=== PATIENT | female | born 1940 | race Caucasian/White ===

== ENCOUNTER → 2017-09-17 06:04 | Outpatient (CLI) | payer MEDICARE, SELFPAY ==
--- NOTE | 2017-09-17 09:25 | STRESSREP ---
Stress Test Report Exercise myocardial perfusion stress test. 77-year-old lady with a history of chest pain. Previous angioplasty and stenting. Stress protocol: Resting EKG demonstrates sinus bradycardia with a rate of 56 bpm normal intervals and noted resting blood pressure is 142/72 meters of mercury. The patient exercised according to regular Zen protocol for total duration of 5 minutes completing 2 minutes into stage II of the Zen protocol. The maximum heart rate attained was 169 bpm which was 119% maximum predicted heart rate the maximum workload attained was 7 metabolic equivalents. The patient maintained sinus rhythm throughout the recording. At rest there were no ST or T-wave changes noted suggest ischemia. At peak exercise there was approximately [address] depression noted in leads II, III and aVF V4 V5 and V6. The above is suggestive of ischemia. Patient complained of some shortness of breath and chest heaviness with dissipated. During recovery the ST changes became more upsloping and finally reverted to normal. The resting blood pressure was 142/72 with a peak blood pressure 162/68. Myocardial perfusion protocol. 11.8 mCi of technetium 99m sestamibi was injected at rest. The patient exercised according to regular Zen protocol for total duration of 5 minutes attaining 7 metabolic equivalents. At peak exercise 34.1 mCi of technetium 99m sestamibi was injected. Stress images were obtained stress and rest images were reconstructed and compared in the short axis vertical long and horizontal long axis. Gated images were also obtained. Perfusion SPECT analysis. Review of the stress images demonstrate normal uptake of tracer noted in all areas of the myocardium on this images. The resting images demonstrate a similar patent. No obvious reversibility is noted except for perhaps a small portion of the basal anteroseptal wall. Gated SPECT analysis: The gated ejection fraction is noted to be 63%. Conclusion: Abnormal exercise EKG with evidence of ischemia at a moderate workload. Nuclear images demonstrate no obvious area of ischemia. Preserved ejection fraction.
== END ==
PROVIDERS: Family Provider Internal Medicine; PCP Internal Medicine; Visit Provider Nurse Practitioner Family
DX: R94.39 Abnormal result of other cardiovascular function study (principal)
CPT/HCPCS: 78452; 93017; A9500; A4216

== ENCOUNTER → 2017-09-27 07:54 | Day surgery (SDC) | payer MEDICARE, SELFPAY ==
--- NOTE | 2017-09-21 15:05 | RAD_ITS ---
STUDY: X-RAY CHEST REASON FOR EXAM: Female, 77 years old. Chest discomfort, history of heart stents and SVT. TECHNIQUE: PA and lateral views of the chest. COMPARISON: Prior study of 09/10/2014 FINDINGS: There is a small calcified granuloma of the left upper lobe. There is hemidiaphragmatic flattening consistent with COPD. Normal size heart. There are several small calcified left hilar nodes. Normal visualized pulmonary arteries. There are calcified plaques of the thoracic aorta. There is a mild mid thoracic levoscoliosis. Normal visualized ribs, clavicles, and shoulders. There is no demonstrated abnormality of the visualized soft tissue structures of the upper abdomen. RAD/Chest PA and Lateral IMPRESSION: Calcified granuloma of the left upper lobe. Calcified left hilar nodes. There is a mild mid thoracic levoscoliosis. There is hemidiaphragmatic flattening suggestive of COPD. No acute cardiopulmonary disease process is seen. Chest findings are stable in the interval. Electronically Signed: Maik Luna MD at 16:19 EDT , Service support ,
[2017-09-21 16:57] LABS: Absolute Lymphocyte Count 1.58 X10^3/ul (0.83-4.51); Absolute Neutrophil Count 2.5 X10^3/uL (2.0-7.7); Basophil# 0.02 X10^3/uL; Basophil% 0.4 % (0-1); Eosinophil# 0.24 X10^3/uL; Eosinophils% 5.1 % (0-5); Hematocrit 37.8 % (37-47); Hemoglobin 12.3 g/dl (12.0-15.0); Lymphocyte # 1.58 X10^3/ul (4.0); Lymphocyte % 33.7 % (19-41); Mean Corp Hgb Conc 32.5 g/gl (32-36); Mean Corpuscular Hgb 31.4 pg (27.0-32.0); Mean Corpuscular Volume 96.4 fL (81-99); Mean Platelet Vol. 10.1 fl (6.2-12.0); Monocyte# 0.36 X10^3/uL; Monocyte% 7.7 % (0-10); Neutrophil # 2.48 X10^3/uL (2.7-7.7); Neutrophil % 52.9 % (47-70); Platelet Count 172 K/mm3 (150-450); RBC Distribution Width CV 12.9 % (11.6-14.6); Red Blood Count 3.92 M/mm3 (4.2-5.4); White Blood Count 4.7 K/mm3 (4.4-11.0)
[2017-09-21 17:13] LABS: POSITIVE COUNT NO; POSITIVE DIFFERENTIAL NO; POSITIVE MORPHOLOGY NO
[2017-09-21 17:23] LABS: Prothrombin Time (Protime)PT. 13.5 SECONDS (11.7-14.9)
[2017-09-21 17:24] LABS: Partial Thromboplast Time 27.6 Seconds (24.1-36.2)
[2017-09-21 17:52] LABS: Anion Gap 6 (5-15); BUN 26 mg/dL (7-18); BUN/Creat Ratio 18.3 RATIO (10-20); Calcium,Total 8.3 mg/dL (8.5-10.1); Chloride 105 mmol/L (98-107); Creatinine, Serum 1.42 mg/dL (0.55-1.02); EST Glomerular Filtration Rate 38 mL/min (>60); Est Glom Filt Rate - Afr Amer 46 mL/min (>60); Glucose 78 mg/dL (74-106); Potassium 4.5 mmol/L (3.5-5.1); Sodium Level 140 mmol/L (136-145)
[2017-09-24 13:15] VITALS: BMI 22.6
--- NOTE | 2017-09-27 10:22 | CL.D_ITS ---
Patient Name: ASHANTI ESCALONA Study Date: 09/27/2017 Performing: Murtaza Jeter MD Ht: 64.96 inches 165 cm : 1940 Wt: 136.69 lbs 62 kg Age: 77 Gender: female BSA: 1.68 PROCEDURE(S) PERFORMED EY64-PYS/COR/LV CLINICAL PROFILE AND INDICATIONS INDICATIONS: Stable Known CAD HEART FAILURE: None Stress/Imaging Stress Test w/SPECT MPI: Yes Result: Positive Intermediate RiskStress Test with SP ECT MPI: Positive Intermediate Risk Angina Classification Anginal Classification w/in 2 Weeks: No symptoms CAD Presentations: Stable angina. CONCLUSIONS Previously placed stent in the left anterior descending artery and right coronary artery is patent wi th mild disease. Preserved ejection fraction. RECOMMENDATIONS Medical therapy DESCRIPTION OF PROCEDURE The patient arrived to the procedure lab. The risks and benefits of the procedure as well as a full d escription of our services here and current unavailability of surgical backup were fully explained to the patient and/or their significant other prior to the catheterization. The Timeout was completed, verifying the correct patient and procedure. The patient's procedural site was prepped and draped in the usual fashion. Local anesthetic was given subcutaneously to right radial region with Lidocaine 2% . Using a modified Seldinger technique, arterial access was obtained via the right radial artery, a 6 Fr sheath was inserted. Left Coronary Artery selective angiography was performed in multiple views u sing a 5 Fr. 4.0 [place] catheter. Right Coronary Artery selective angiography was then performed in mu ltiple views using a 5 Fr. 4.0 [place] catheter. Left Ventriculography was performed in RIVERA projection using a 5 Fr. Pigtail catheter. LV to AO pullback pressures were then recorded.The arterial sheath wa s pulled and a TR Band was applied for hemostasis CORONARY ANGIOGRAPHY DOMINANCE: Right Dominant LEFT HEART ASSESSMENT Left Ventricular Ejection Fraction: by LV Gram 60 % Normal LV wall motion Normal Left Ventricular systolic function LEFT MAIN: Angiographically normal LEFT ANTERIOR DECENDING ARTERY: Previously placed stent is patent PROX LAD: Mild luminal irregularities DIAGONAL 1: Proximal - Moderate luminal irregularities up to 50% CIRCUMFLEX ARTERY: Mild luminal irregularities RIGHT CORONARY ARTERY: Previously placed stent has an instent 20 % restenosis COMPLICATIONS No Complications PROCEDURE MEDICATIONS Versed 1 mg IV Fentanyl 50 mcg IV Oxygen: 2 L/min via nasal cannula Heparin diluted in 23cc Heparinized saline. Patient given 10cc IA of this solution. 09/27/2017 09:55:5 7 Verapamil 2.5mg, Ntg 100mcgs, 2000 units of Heparin diluted in 23cc Heparinized saline. Patient give n 10cc IA of this solution. 09/27/2017 09:55:57 SUMMARY OF HEMODYNAMIC DATA Time AIR REST ECG 08:22:52 AO 112/61 (81) SA 09:58:30 LV 137/1, 15 10:07:39 LV 107/1, 9 10:07:46 LV 119/0, 14 10:09:15 LVp 118/0, 14 10:09:19 AOp 120/54 (81) 10:09:24 Signed By Murtaza Jeter MD On 09/27/2017 10:22:21 Murtaza Jeter MD
== END ==
PROVIDERS: Nurse Practitioner Family; Family Provider Internal Medicine; PCP Internal Medicine; Visit Provider Internal Medicine Cardiovascular Disease
DX: T82.855A Stenosis of coronary artery stent, initial encounter (principal); Y83.9 Surgical procedure, unspecified as the cause of abnormal reaction of the patient, or of later complication, without mention of misadventure at the time of the procedure; I25.10 Atherosclerotic heart disease of native coronary artery without angina pectoris; I48.0 Paroxysmal atrial fibrillation; R00.2 Palpitations; I34.1 Nonrheumatic mitral (valve) prolapse; G47.33 Obstructive sleep apnea (adult) (pediatric); I35.1 Nonrheumatic aortic (valve) insufficiency; E78.5 Hyperlipidemia, unspecified; I10 Essential (primary) hypertension; M79.7 Fibromyalgia; Z85.3 Personal history of malignant neoplasm of breast; Z79.82 Long term (current) use of aspirin; Z82.49 Family history of ischemic heart disease and other diseases of the circulatory system
CPT/HCPCS: 36415; 80048; 85025; 85610; 85730; 93458; 99152; 99153; J3010; J7040; Q9967; C1769; C1894

== ENCOUNTER → 2017-10-27 11:30 | Outpatient (CLI) | payer MEDICARE, SELFPAY | PROVIDERS: Family Provider Internal Medicine; PCP Internal Medicine; Visit Provider Internal Medicine | DX: R00.1 Bradycardia, unspecified (principal) | CPT/HCPCS: 93225; 93226 ==

== ENCOUNTER → 2017-10-28 15:09 | Outpatient (CLI) | payer MEDICARE, SELFPAY ==
[2017-10-28 16:32] LABS: Platelet Count 121 K/mm3 (150-450)
== END ==
PROVIDERS: Family Provider Internal Medicine; PCP Internal Medicine; Visit Provider Internal Medicine
DX: R79.89 Other specified abnormal findings of blood chemistry (principal)
CPT/HCPCS: 36415; 85049

== ENCOUNTER → 2018-05-10 07:26 | Outpatient (CLI) | payer MEDICARE, SELFPAY ==
--- NOTE | 2018-05-10 10:28 | NEURO ---
NCS and/or EMG Patient Report Ordering Doctor: Agatha Chong DATE OF SERVICE: 05/10/18 This is a bilateral upper extremity nerve conduction study and a left upper extremity EMG performed on this 86-year-old female with pain in her hands worse on the left side. Bilateral upper extremity sensory and motor nerve conduction studies performed. The median motor and sensory distal latencies are mildly prolonged, and on the left side the amplitudes are mild to moderately reduced. Amplitudes on the right side are normal. Conduction velocities are maintained. The ulnar motor and sensory and radial sensory responses are normal bilaterally. The median and ulnar F-wave latencies bilaterally are preserved. Left upper extremity needle electromyography is performed. Muscles evaluated included the first dorsal interosseous, abductor pollicis brevis, brachioradialis, biceps, triceps and deltoid muscles. All muscles demonstrated normal insertional activity with absence of pathologic spontaneous activity. Motor unit potential recruitment pattern and amplitude was normal in all muscles tested. Impression: Abnormal true physiologic study of the upper extremities consistent with bilateral mild carpal tunnel syndrome.
== END ==
PROVIDERS: Family Provider Internal Medicine; PCP Internal Medicine; Referring Provider Nurse Practitioner Acute Care; Visit Provider Nurse Practitioner Acute Care
DX: R20.0 Anesthesia of skin (principal); R20.2 Paresthesia of skin
CPT/HCPCS: 95886; 95913

== ENCOUNTER → 2019-02-22 11:32 | Outpatient (CLI) | payer MEDICARE, SELFPAY ==
[2018-04-04 14:23] VITALS: BMI 22.3
[2019-02-22 14:19] LABS: Thyroid Stim Hormone (TSH) 2.47 uIU/mL (0.358-3.74)
[2019-02-22 14:20] LABS: Vitamin B12 1838 pg/mL (211-911)
== END ==
PROVIDERS: Family Provider Internal Medicine; PCP Internal Medicine; Referring Provider Nurse Practitioner Family; Visit Provider Nurse Practitioner Family
DX: R41.3 Other amnesia (principal)
CPT/HCPCS: 36415; 82607; 84443

== ENCOUNTER → 2019-03-08 12:30 | Outpatient (CLI) | payer MEDICARE, SELFPAY ==
--- NOTE | 2019-03-08 12:33 | MRI_ITS ---
STUDY: MRI BRAIN WITHOUT CONTRAST REASON FOR EXAM: Female, 79 years old. Memory loss TECHNIQUE: Standardized multiplanar fat and water weighted pulse sequences were obtained. COMPARISON: None. FINDINGS: There is moderate cerebral atrophy with widening of the extra-axial spaces and ventricular dilatation. There are multiple white matter hyperintensities, distributed throughout the deep white matter tracts of the cerebral hemispheres, consistent with moderate chronic white matter ischemic changes. There is no evidence for recent intracranial ischemia or other cause of cytotoxic edema on diffusion weighted imaging (DWI). Normal T2* images of the brain without demonstrated susceptibility artifact. There is no demonstrated hemosiderin stain. Thin section coronal T2 images through the temporal lobes demonstrate no evidence of hippocampal atrophy Normal bilateral basal ganglia. Normal thalami. There is no extra-axial fluid accumulation. Normal flow voids within the major intracranial circulation suggesting patency by spin echo criteria. Normal sella turcica, pituitary gland, infundibular stalk, optic chiasm and hypothalamus. Normal tectal plate and pineal gland. Normal midbrain, addison and medulla. Normal cerebellum. Normal basal cisterns. Normal bilateral temporal bones. Normal bilateral internal auditory canals. There are bilateral ocular lens implants with otherwise normal intraorbital contents. Normal visualized paranasal sinuses. Normal calvarium and skull base. Normal visualized soft tissue structures. Normal visualized upper cervical spine. MRI/Brain without Contrast IMPRESSION: Involutional changes of the brain, as described above. Electronically Signed: Venkat Chaney MD at 17:04 EDT Tel , Service support ,
== END ==
PROVIDERS: Family Provider Internal Medicine; PCP Internal Medicine; Referring Provider Nurse Practitioner Family; Visit Provider Nurse Practitioner Family
DX: R41.3 Other amnesia (principal)
CPT/HCPCS: 70551

== ENCOUNTER → 2019-05-10 14:49 | Outpatient (CLI) | payer MEDICARE, SELFPAY ==
--- NOTE | 2019-05-10 14:53 | US_ITS ---
STUDY: RENAL ULTRASOUND - COMPLETE REASON FOR EXAM: Female, 79 years old. Hematuria. TECHNIQUE: Ultrasound evaluation of the kidneys was performed with real-time and static gonsales-scale imaging. COMPARISON: None. FINDINGS: RIGHT KIDNEY: Normal location of the right kidney, which is normal in size. The right kidney measures 9.0 x 2.1 x 4.8 cm. There is a normal cortex of the right kidney. The renal cortex measures 1.7 cm. There is no right renal mass or cyst. There are no right renal calculi. There is no right hydronephrosis. DISTAL RIGHT URETER: There is non-visualization of the distal right ureter. There is no demonstrated right ureterovesical junction calculus. There is a visualized right ureteral jet. LEFT KIDNEY: Normal location of the left kidney, which is normal in size. The left kidney measures 8.9 x 4.2 x 4.4 cm. There is a normal cortex of the left kidney. The renal cortex measures 1.3 cm. Within the left kidney there is a round anechoic structure at the upper pole measuring 1.2 x 1.2 x 1.2 cm compatible with a small cyst. There are no left renal calculi. There is no left hydronephrosis. DISTAL LEFT URETER: There is non-visualization of the distal left ureter. There is no demonstrated left ureterovesical junction calculus. There is a visualized left ureteral jet. BLADDER: The urinary bladder has a volume of 351.3 ml. There is a normal wall thickness of the distended urinary bladder. There is no demonstrated mass within the urinary bladder. There are no demonstrated bladder calculi. US/Kidney and Bladder IMPRESSION: Small left-sided renal cyst measuring 1.2 cm maximum dimension, remainder of the ultrasound of the kidneys and urinary bladder. Electronically Signed: Lisa Mckay MD at 2:43 EST , Service support ,
== END ==
PROVIDERS: Family Provider Internal Medicine; PCP Internal Medicine; Referring Provider Internal Medicine; Visit Provider Internal Medicine
DX: R31.9 Hematuria, unspecified (principal)
CPT/HCPCS: 76770

== ENCOUNTER → 2019-05-29 14:52 | Outpatient (CLI) | payer MEDICARE, SELFPAY ==
[2019-05-15 14:29] VITALS: BMI 22.1
--- NOTE | 2019-05-29 14:54 | RAD_ITS ---
STUDY: X-RAY - RIGHT SHOULDER REASON FOR EXAM: Female, 79 years old. Episode of posterior shoulder pain last week, no known injury. TECHNIQUE: 4 view(s) of the shoulder. COMPARISON: None. FINDINGS: Normal glenohumeral articulation. There is degenerative arthrosis of the acromioclavicular joint without inferior osseous spur formation. Normal acromion. Normal humeral head and visualized proximal humerus. The soft tissue structures are unremarkable. Normal visualized pulmonary apex. RAD/Shoulder min 2 Views IMPRESSION: Mild degenerative changes along the acromioclavicular joint. Electronically Signed: Maite Durand MD at 6:36 EST , Service support ,
== END ==
PROVIDERS: Family Provider Internal Medicine; PCP Internal Medicine; Referring Provider Internal Medicine; Visit Provider Internal Medicine
DX: M25.511 Pain in right shoulder (principal)
CPT/HCPCS: 73030

== ENCOUNTER → 2019-06-07 17:34 | Outpatient (CLI) | payer MEDICARE, SELFPAY ==
[2019-05-15 14:29] VITALS: BMI 22.1
== END ==
PROVIDERS: Family Provider Internal Medicine; PCP Internal Medicine; Referring Provider Internal Medicine; Visit Provider Internal Medicine
DX: R07.89 Other chest pain (principal)
CPT/HCPCS: 84484

== ENCOUNTER → 2019-07-20 11:12 | Outpatient (CLI) | payer MEDICARE, SELFPAY ==
[2019-05-15 14:29] VITALS: BMI 22.1
--- NOTE | 2019-07-20 11:20 | BI_ITS ---
MAMMOGRAPHY - UNILATERAL SCREENING: LEFT BREAST REASON FOR EXAM: Female, 79 years old. Routine annual screening examination (unilateral). PERTINENT HISTORY: Personal history of breast cancer. Prior right mastectomy with chemotherapy. Sister with breast cancer. Aunt with breast cancer. Grandmother with breast cancer. TECHNIQUE: Digital unilateral breast anamika (3D mammographic acquisition) in the CC and MLO projections. 2-D mediolateral oblique (MLO) and craniocaudad (CC) views of both breasts were obtained. CAD: Full Field Digital Mammography with Computer Added Detection was performed. COMPARISON: Comparison is made with prior outside examination dated July 19, 2018. FINDINGS: Breast Composition: There are scattered areas of fibroglandular density. There are no dominant masses or suspicious calcifications. No other significant abnormalities are identified. There has been no significant change since the prior study. BI/SCREEN MAMM (CAD) W/ANAMIKA UNI L IMPRESSION: Stable unilateral screening mammogram. Yearly follow-up mammogram recommended. (A) ASSESSMENT CATEGORY: BIRADS Category 1: Negative. A letter regarding these results will be sent to the patient by the facility within 30 days. Approximately 10% of breast cancers are not detected by mammography. A normal mammogram should not delay biopsy of a clinically suspicious abnormality. [id number] Electronically Signed: Dat Perez, at 13:46 EST , Service support ,
--- NOTE | 2019-07-20 12:10 | RAD_ITS ---
STUDY: X-RAY CHEST REASON FOR EXAM: Female, 79 years old. YEARLY CXR POST BREAST CA HX, NO CURRENT CHEST COMPLAINTS TECHNIQUE: Frontal and lateral views of the chest. COMPARISON: 09/21/2017 FINDINGS: Calcified granuloma in the left midlung. The lungs are clear and expanded. There is no demonstrated pleural abnormality. Normal size heart. Normal mediastinum and otis. Normal visualized pulmonary arteries. Normal visualized aortic arch and descending thoracic aorta. Normal visualized thoracic spine. Normal visualized ribs, clavicles, and shoulders. There is no demonstrated abnormality of the visualized soft tissue structures of the upper abdomen. RAD/Chest PA and Lateral IMPRESSION: No acute pulmonary findings. Electronically Signed: Darron Enriquez MD at 0:46 EST Tel , Service support ,
== END ==
PROVIDERS: Family Provider Internal Medicine; PCP Internal Medicine
DX: Z12.31 Encounter for screening mammogram for malignant neoplasm of breast (principal); C50.919 Malignant neoplasm of unspecified site of unspecified female breast
CPT/HCPCS: 71046; 77063; 77067

== ENCOUNTER → 2020-06-19 14:50 | Outpatient (CLI) | payer MEDICARE, SELFPAY ==
[2019-11-09 14:57] VITALS: BMI 21.6
[2020-06-18 16:11] LABS: Creatinine, Serum 1.28 mg/dL (0.55-1.02); EST Glomerular Filtration Rate 42 mL/min (>60); Est Glom Filt Rate - Afr Amer 51 mL/min (>60)
--- NOTE | 2020-06-19 14:54 | CT_ITS ---
STUDY: CT ABDOMEN AND PELVIS WITH CONTRAST REASON FOR EXAM: Female, 80 years old. Diarrhea, prior breast cancer RADIATION DOSAGE (If Supplied By Facility): CTDIvol = ( 14.72 ) mGy, DLP = ( 593.26 ) mGycm TECHNIQUE: CT images were obtained from the dome of the diaphragm to the symphysis pubis without oral contrast. Oral and amp; IV Readi-CAT and amp; 100mL Isovue-370 was administered. Sagittal and coronal images were reconstructed. Individualized dose optimization techniques were used for this CT. COMPARISON: 10 May 2019 FINDINGS: There is right mastectomy. Lung bases are clear. Coronary arteries are diseased with probably stent in the RCA. Normal liver. Gallbladder is removed. There is no biliary dilation. Normal spleen with benign subcentimeter cysts and granulomata.. Normal pancreas. Normal bilateral adrenal glands. Normal right kidney. Normal left kidney. There are benign subcentimeter renal cysts not requiring further imaging follow-up. There is no intestinal obstruction. Appendix is removed. Normal abdominal aorta. Normal inferior vena cava. Normal retroperitoneum. Normal urinary bladder. Normal abdominal wall. Osseous structures are intact with degenerative change at L2-L3 and L3-L4 endplates and discs. CT/Abdomen/Pelvis WITH Contrast IMPRESSION: 1. Normal bowel. 2. Normal abdomen. Electronically Signed: Emely Oneal, at 17:05 EST Tel , Service support ,
== END ==
PROVIDERS: PCP Internal Medicine; Referring Provider Nurse Practitioner; Visit Provider Nurse Practitioner
DX: R10.9 Unspecified abdominal pain (principal)
CPT/HCPCS: 36415; 74177; 82565; Q9967

== ENCOUNTER → 2020-07-24 14:00 | Outpatient (CLI) | payer MEDICARE, SELFPAY ==
[2020-07-10 14:10] VITALS: BMI 22.0
--- NOTE | 2020-07-24 14:04 | BI_ITS ---
MAMMOGRAPHY - UNILATERAL SCREENING: LEFT BREAST REASON FOR EXAM: Female, 80 years old. Routine annual screening examination (unilateral). PERTINENT HISTORY: Personal history of breast cancer. Prior right mastectomy with chemotherapy. Sister with breast cancer. Mother with breast cancer. Grandmother with breast cancer. TECHNIQUE: Digital unilateral breast anamika (3D mammographic acquisition) in the CC and MLO projections. 2-D mediolateral oblique (MLO) and craniocaudad (CC) views of both breasts were obtained. CAD: Full Field Digital Mammography with Computer Added Detection was performed. COMPARISON: Comparison is made with prior examination dated 07/20/2019. FINDINGS: Breast Composition: There are scattered areas of fibroglandular density. There are no dominant masses or suspicious calcifications. Stable benign-appearing bilateral axillary lymph nodes. No other significant abnormalities are identified. There has been no significant change since the prior study. BI/SCREEN MAMM (CAD) W/ANAMIKA UNI L IMPRESSION: Stable unilateral screening mammogram. Yearly follow-up mammogram recommended. (A) ASSESSMENT CATEGORY: BIRADS Category 2: Benign. A letter regarding these results will be sent to the patient by the facility within 30 days. Approximately 10% of breast cancers are not detected by mammography. A normal mammogram should not delay biopsy of a clinically suspicious abnormality. [id number] Electronically Signed: Dat Perez MD at 14:41 EST , Service support ,
== END ==
PROVIDERS: PCP Internal Medicine
DX: Z12.31 Encounter for screening mammogram for malignant neoplasm of breast (principal); Z80.3 Family history of malignant neoplasm of breast; Z85.3 Personal history of malignant neoplasm of breast; Z90.11 Acquired absence of right breast and nipple
CPT/HCPCS: 77063; 77067

== ENCOUNTER 2020-08-19 09:30 | Outpatient (RCR) | payer MEDICARE, SELFPAY ==
[2020-07-10 14:10] VITALS: BMI 22.0
--- NOTE | 2020-08-20 11:55 | NS ---
Pt w/ questions regarding fruit juice, vegetables, & probiotic drink. RDN spoke w/ pt via phone. Answered pt questions accordingly. When reading nutrition label looking for active cultures - on Kefir or Yogurt- discussed building back gut microbia, provided kefir brands. Discussed Kombucha as additional option for increased probiotics- rec drinking 4 oz per day. Continue digestive aid medication. Pt w/ questions regarding potatoes- encouraged removing skin of potatoes and not eating to decrease fiber. Discussed sample menu on nutrition handout as options on how to incorporate low fiber/diarrhea nutrition therapy not to strictly follow- redirected pt to food groups for recommended foods on handout. Marlyn De La Rosa RDN, LD
--- NOTE | 2020-08-22 15:05 | NS ---
Pt called 08/21, RDN returned call and left VM for pt that RDN would call the next day. Pt called RDN this day upset regarding her discussion w/ docotor's office as pt had questions of cholesterol pill medication causing diarrhea. Pt w/ questions for RDN regarding kefir, kombucha drink as well and dietary fiber. Discussed with patient RDN would update doctor's office. RDN answered pt questions accordingly. Pt w/ hx of dementia- seemingly forgetful of information discussed previous days. Referred back to nutrition educational handout provided. Moved follow-up appointment up. Spoke w/ Merissa RN at patient's doctors office to update on care provided & clarify pt history. Pt had reported taking Ceftriaxone however was unsure as to when, Merissa reports pt has not recently or in the past 2 years been prescribed medication. RDN with questions regarding pt baseline with dementia- Merissa unsure of pt baseline; recommended RDN call back Wednesday to speak w/ Benigno pt primary RN or Jannette BEASLEY. Per pt, pt lives alone-completes ADL herself. Cece, friend from [employer] meets with Verna once per week. Marlyn De La Rosa RDN, LD
== END 2020-08-25 23:59 ==
LOC: NS 09:30
PROVIDERS: PCP Internal Medicine; Visit Provider Nurse Practitioner
DX: Z71.3 Dietary counseling and surveillance (principal); N18.30 Chronic kidney disease, stage 3 unspecified
CPT/HCPCS: 97802

== ENCOUNTER → 2020-09-17 13:05 | Outpatient (CLI) | payer MEDICARE, SELFPAY ==
[2020-07-10 14:10] VITALS: BMI 22.0
--- NOTE | 2020-09-17 13:11 | BD_ITS ---
STUDY: DUAL ENERGY X-RAY ABSORPTIOMETRY / DXA REASON FOR EXAM: Female, 80 years old. [id number] TECHNIQUE: Bone Mineral Density (BMD) measurements of lumbar spine and bilateral hips were obtained. COMPARISON: Comparison is made with prior study dated 06/08/2017. FINDINGS: Lumbar Spine (L1-L4): g/cm2 (0.981) / T-score (-1.5) / Z-score (0.3) Findings are suggestive of osteopenia with a low fracture risk. Left Femur Total: g/cm2 (0.882) / T-score (-1.0) / Z-score (1.1) Left Femoral Neck: g/cm2 (0.802) / T-score (-1.7) / Z-score (0.6) Right Femur Total: g/cm2 (0.809) / T-score (-1.6) / Z-score (0.6) Right Femoral Neck: g/cm2 (0.751) / T-score (-2.1) / Z-score (0.2) The T-Scores on the most recent prior examination were: Lumbar Spine (L1-L4): There has been improvement of bone density since the previous examination. Left Femur Total: which represents an improvement of 2.6%. Right Femur Total: which represents a worsening of 2.6%. BD/Dexa Bone Density Study IMPRESSION: The patient is considered osteopenic as outlined below according to World Hebert Organization (WHO) criteria with a high fracture risk. There has been improvement of bone density since the previous examination. Reference Information: The T-score is the number of standard deviations above or below the standard which is normal for young adults at their peak bone mineral density. The World Health Organization (WHO) interprets the T-scores as follows: Above -1 Normal bone density Between -1 and -2.5 Osteopenia Equal to / or below -2.5 Osteoporosis As a practical clinical guideline, osteopenia may be graded as follows: Mild -1 through -1.5 Moderate -1.6 through -2.0 Severe -2.1 through -2.4 The Z-score is the number of standard deviations above or below age-matched controls. A Z-score of less than -1.5 would be considered abnormal. References: 1. NIH Osteoporosis and Related Bone Diseases www osteo.org 2. International Society for Clinical Densitometry www iscd.org 3. National Osteoporosis Foundation www nof.org Electronically Signed: Dat Perez MD at 14:47 EDT , Service support ,
== END ==
PROVIDERS: PCP Internal Medicine; Referring Provider Nurse Practitioner; Visit Provider Nurse Practitioner
DX: Z78.0 Asymptomatic menopausal state (principal)
CPT/HCPCS: 77080

== ENCOUNTER → 2020-09-18 12:42 | Outpatient (CLI) | payer MEDICARE, SELFPAY ==
[2020-07-10 14:10] VITALS: BMI 22.0
--- NOTE | 2020-09-18 12:46 | VDLE_ITS ---
Reason For Study: RLE PAIN RIGHT LEFT GSV is normal. CFV is compressible, spontaneous, phasic, CFV is compressible, spontaneous, phasic, competent, and demonstrates normal competent and demonstrates normal augmentation. augmentation. FV is compressible, spontaneous, phasic, competent and demonstrates normal augmentation. POP V is compressible, spontaneous, phasic, competent and demonstrates normal augmentation. T/P Trunk is compressible. PTV is compressible. RT PerV is compressible. Procedure This is a venous duplex using B-mode, color flow and spectral Doppler. A preliminary report was called and/or faxed to Jannette Velazquez DELIVERY ROOM SUPERVISOR-C @ [phone] @ 1:40 pm. Interpretation Summary Deep veins of the right lower extremity are patent and compressible segmentally. There is no evidence of right lower extremity deep vein thrombosis. Valvular competence appears intact within the proximal deep venous system on the right . The right great saphenous vein appears patent and compressible segmentally. Ordering Physician: Jannette Velazquez Referring Physician: Jannette Velazquez Performed By: Vielka Nick, PAUL, RVT
== END ==
PROVIDERS: PCP Internal Medicine; Referring Provider Nurse Practitioner; Visit Provider Nurse Practitioner
DX: M79.604 Pain in right leg (principal)
CPT/HCPCS: 93971

== ENCOUNTER 2020-09-24 15:00 | Outpatient (RCR) | payer MEDICARE, SELFPAY ==
[2020-07-10 14:10] VITALS: BMI 22.0
--- NOTE | 2020-08-26 13:21 | NS ---
RAJENDRA spoke w/ DANNY Pelaez patient's primary care nurse at [facility]. Benigno reports pt does call office frequently w/ confusion as well- not uncommon. States she will inquire further to ensure pt not experiencing UTI or has other s/s of AMS. Marlyn De La Rosa RDN, LD
--- NOTE | 2020-09-05 12:46 | NS ---
Addendum entered and electronically signed by Marlyn De La Rosa 09/05/20 16:04: Pt called later this day. Spoke w/ pharmacist who directed patient to either stop taking medication or to speak with doctor. Pt states plans to make doctor's appointment to discuss medications. Rec continued low fiber diet & probiotics. Marlyn De La Rosa RDN, CANDI Original Note: Verna called 09/04 after office closed w/ questions- left VM. MAGGIEN called back this date- pt requesting clarification on what to ask pharmacist. Rec pt take medication list to pharmacist and explain situation w/ experiencing frequent diarrhea & ask for their recommendation. Pt notes gas well went out at home 09/04, Son has been out & is working to fix- no gas for stove or heating for house at this time. Discussed using microwave for meals- pt notes has been preparing foods via microwave. Marlyn De La Rosa RDN, CANDI
== END 2020-09-24 23:59 | disposition home or self-care (01) ==
LOC: NS 15:00
PROVIDERS: PCP Internal Medicine; Visit Provider Nurse Practitioner
DX: Z71.3 Dietary counseling and surveillance (principal); N18.30 Chronic kidney disease, stage 3 unspecified; R19.7 Diarrhea, unspecified
CPT/HCPCS: 97803

== ENCOUNTER → 2021-01-21 11:00 | Outpatient (CLI) | payer MEDICARE, SELFPAY ==
[2021-01-09 13:07] VITALS: BMI 20.7
--- NOTE | 2021-01-21 12:39 | STRESSREP ---
Stress Test Report Date: 01-21-2021 Procedure: Exercise tolerance test/imaging study Indications: Chest pain; CAD; status post PCI; cardiac dysrhythmia; ventricular dysrhythmia; MVP Consent: Per the patient Procedure: The patient exercised on a Zen protocol for 6 minutes and 15 seconds completing Stage II and 15 seconds of Stage III achieving a peak heart rate of 162 bpm (118% predicted maximal heart rate) with a peak blood pressure 150/76 mmHg and a peak MET capacity of 7 METs. The baseline ECG demonstrated sinus rhythm. The peak exercise ECG demonstrated somatic/motion artifact with the appearance of approximately 1 to [address] segment depression in leads II, III, and aVF, and approximately 1 mm of horizontal/upsloping ST segment depression in leads V4 through V6 with gradual resolution to baseline in recovery. There was an isolated PVC during exercise. The functional capacity was considered average. There was no complaint of chest discomfort during exercise or recovery. The examination was discontinued secondary to dyspnea. Impression: 1. Technically adequate (percent predicted maximal heart rate greater than 85%) exercise tolerance test 2. Peak exercise ECG with approximately 1 [address] segment depression in leads II, III, and aVF, and approximately 1 mm horizontal/upsloping ST segment depression in leads V4 through V6 with gradual resolution to baseline in recovery 3. There was an isolated PVC during exercise 4. Nuclear images pending Myocardial perfusion imaging study: Technique: The patient was injected with 11.4 mCi of technetium 99m Cardiolite and subsequently rest SPECT Cardiolite nuclear imaging was obtained in the horizontal long, vertical long, and short axis views. The patient exercised on a Zen protocol for 6 minutes and 15 seconds completing Stage II and 15 seconds of Stage III achieving a peak heart rate of 162 bpm (118% predicted maximal heart rate) with a peak blood pressure 150/76 mmHg and a peak MET capacity of 7 METs. The patient was injected with 35.8 mCi of technetium 99m Cardiolite and subsequently stress SPECT Cardiolite nuclear imaging was obtained in the horizontal long, vertical long, and short axis views. A gated Cardiolite study at peak stress was obtained. Interpretation: Rest and stress SPECT Cardiolite nuclear imaging status post realignment, normalization, and attenuation correction, demonstrates the appearance of relative uniform tracer uptake and myocardial perfusion appearing within normal limits. There are no myocardial perfusion deficits appreciated on the stress polar map images. There is end systolic thickening and brightening. The gated Cardiolite study demonstrates myocardial thickening and inward wall motion. The reported LVEF is 70%. Impression: 1. Rest and stress SPECT Cardiolite nuclear imaging demonstrate relative uniform tracer uptake and myocardial perfusion appearing within normal limits. 2. The gated Cardiolite study reports an LVEF of 70%. This note was generated with [email or web address] software. It may contain incorrect words, spelling, and punctuation that were not noted in checking the note before signing.
== END ==
PROVIDERS: PCP Internal Medicine; Referring Provider Nurse Practitioner Gerontology; Visit Provider Nurse Practitioner Gerontology
DX: R07.89 Other chest pain (principal); Z95.5 Presence of coronary angioplasty implant and graft
CPT/HCPCS: 78452; 93017; A9500; A4216

== ENCOUNTER 2021-03-04 11:55 | Observation (INO) | payer MEDICARE, SELFPAY ==
[2021-01-09 13:07] VITALS: BMI 20.7
[2021-02-26 14:50] LABS: Absolute Lymphocyte Count 1.08 X10^3/uL (0.83-4.51); Absolute Neutrophil Count 2.3 X10^3/uL (2.0-7.7); Basophil# 0.01 X10^3/uL; Basophil% 0.2 % (0-1); Eosinophil# 0.24 X10^3/uL; Eosinophils% 5.8 % (0-5); Hematocrit 39.3 % (37-47); Hemoglobin 12.5 g/dL (12.0-15.0); Lymphocyte # 1.08 X10^3/ul (0.83-4.51); Lymphocyte % 25.9 % (19-41); Mean Corp Hgb Conc 31.8 g/dL (32-36); Mean Corpuscular Hgb 31.4 pg (27.0-32.0); Mean Corpuscular Volume 98.7 fL (81-99); Mean Platelet Vol. 9.6 fl (6.2-12.0); Monocyte# 0.49 X10^3/uL; Monocyte% 11.8 % (0-10); NRBC Flagged by Analyzer 0 % (0-5); Neutrophil # 2.33 X10^3/uL (2.7-7.7); Neutrophil % 55.8 % (47-70); Platelet Count 165 K/mm3 (150-450); RBC Distribution Width CV 12.2 % (11.6-14.6); RBC Distribution Width SD 44.5 fl (35.1-43.9); Red Blood Count 3.98 M/mm3 (4.2-5.4); White Blood Count 4.2 K/mm3 (4.4-11.0)
[2021-02-26 15:00] LABS: International Normalized Ratio 1.2; Prothrombin Time (Protime)PT. 14.3 SECONDS (11.7-14.9)
--- NOTE | 2021-02-26 15:00 | RAD_ITS ---
STUDY: X-RAY CHEST REASON FOR EXAM: Female, 81 years old. Shortness of breath. TECHNIQUE: Frontal and lateral views of the chest. COMPARISON: 07/20/2019. FINDINGS: Stable hyperexpansion with scattered healed granulomatous calcifications. There is no demonstrated pleural abnormality. Stable cardiomegaly. Left calcified hilar lymph nodes unchanged. Normal visualized pulmonary arteries. Normal visualized aortic arch and descending thoracic aorta. Normal visualized thoracic spine. Normal visualized ribs, clavicles, and shoulders. There is no demonstrated abnormality of the visualized soft tissue structures of the upper abdomen. RAD/Chest PA and Lateral IMPRESSION: Stable chest with no acute or active cardiopulmonary disease. Electronically Signed: Russell Castaneda MD at 10:03 EDT , Service support ,
[2021-02-26 15:23] LABS: Anion Gap 5 (5-15); BUN 28 mg/dL (7-18); BUN/Creat Ratio 23.9 RATIO (10-20); Calcium,Total 8.2 mg/dL (8.5-10.1); Chloride 104 mmol/L (98-107); Creatinine, Serum 1.17 mg/dL (0.55-1.02); EST Glomerular Filtration Rate 47 mL/min (>60); Est Glom Filt Rate - Afr Amer 57 mL/min (>60); Glucose 90 mg/dL (74-106); Potassium 4.6 mmol/L (3.5-5.1); Sodium Level 137 mmol/L (136-145)
[2021-02-28 13:01] VITALS: BMI 20.6
--- NOTE | 2021-02-28 16:49 | HP.PCM_ITS ---
History and Physical Date of Admission: 03/04/21 [facility] [id number] [place], [place] [phone] OFFICE VISITDate of Service: 01/09/21 MR#:[id number]:[id number]: ASHANTI ESCALONA ARep #[id number] Provider: FEROZ Morejon/Sex: 80/F Locati on:BMS.WHGStatus:Signed HPI HPI History of Present Illness Details: ASHANTI ESCALONA, is a 80 year old white female who presents to the office today for a cardiovascular outpatient follow-up with a history of coronary artery disease status post stenting to LAD in July 2010 and RCA ?3 in July 2013, PAF/SVT/Nonsustained VT/PACs/PVCs, mitral valve prolapse, hyperlipidemia, and PERLA with Bipap therapy and follows with Dr. Gordon. She also has a history of breast cancer in 1995 with chemotherapy and thrombocytopenia. The patient does have a complaint of chest heaviness, which she states started about 1-2 weeks ago. She notices it more with sitting, not so much with activity. She did note that she had to sit out for a portion of her exercise routine this morning. She is unable to say how long it lasts for. She has not used her nitroglycerin sublingual. She denies chest pain, pressure or palpitations. She does not have any SOB, Orthopnea, and PND. She denies any bleeding issues; no blood in urine, stool or nosebleeds. She denies any decrease in energy level, myalgias, or claudication. She denies edema, or sudden weight gain. She denies dizziness, lightheadedness, syncopal or near syncopal episodes, and headaches. She sees her PCP, Jannette Velazquez in a few weeks to re-evaluate her blood work. She states her last cholesterol 3 months ago was: total 220, LDL 143, and HDL 63. Intake Vital Signs 01/09/21 13:07 Height 5 ft 6 in Weight: 128 lb 4 oz BMI 20.7 BP 122/58 H Blood Pressure Location Lt brachial Position Sitting Respiration 16 Pulse 64 Pulse Oximetry (%) 95 Oxygen Delivery Method room air Intake Visit Reasons: 6 m fu Allergies amitriptyline Allergy (Intermediate, Verified 01/09/21 16:06) unknown donepezil [From Aricept] Allergy (Intermediate, Verified 01/09/21 16:06) unknown hydrocodone [From Vicoprofen] Allergy (Intermediate, Verified 01/09/21 16:06) unknown ibuprofen [From Vicoprofen] Allergy (Intermediate, Verified 01/09/21 16:06) unknown sertraline [From Zoloft] Allergy (Intermediate, Verified 01/09/21 16:06) unknown acetaminophen [From Tylenol] Allergy (Verified 01/09/21 16:06) Unknown amoxicillin [Amoxicillin] Allergy (Verified 01/09/21 16:06) Unknown celecoxib [From Celebrex] Allergy (Verified 01/09/21 16:06) Unknown cephalexin [Cephalexin] Allergy (Verified 01/09/21 16:06) Unknown ciprofloxacin [From Cipro] Allergy (Verified 01/09/21 16:06) Unknown ciprofloxacin HCl [From Cipro] Allergy (Verified 01/09/21 16:06) Unknown cyclobenzaprine HCl [From Flexeril] Allergy (Verified 01/09/21 16:06) Unknown diltiazem HCl [From Cardizem] Allergy (Verified 01/09/21 16:06) Unknown doxycycline calcium [From Vibramycin] Allergy (Verified 01/09/21 16:06) Unknown doxycycline hyclate [From Vibramycin] Allergy (Verified 01/09/21 16:06) Unknown doxycycline monohydrate [From Vibramycin] Allergy (Verified 01/09/21 16:06) Unknown erythromycin base [Erythromycin Base] Allergy (Verified 01/09/21 16:06) Unknown Penicillins Allergy (Verified 01/09/21 16:06) Unknown Sulfa (Sulfonamide Antibiotics) Allergy (Verified 01/09/21 16:06) Unknown tolterodine tartrate [From Detrol] Allergy (Verified 01/09/21 16:06) Unknown topiramate [From Topamax] Allergy (Verified 01/09/21 16:06) Unknown tolterodine [From Detrol] Adverse Reaction (Severe, Verified 01/09/21 16:06) Unknown lisinopril Adverse Reaction (Intermediate, Verified 01/09/21 16:06) Pt cannot remember losartan Adverse Reaction (Intermediate, Verified 01/09/21 16:06) diarrhea gabapentin [From Neurontin] Adverse Reaction (Unknown, Verified 01/09/21 16:06) Unknown ondansetron Adverse Reaction (Unknown, Verified 01/09/21 16:06) I don't remember venlafaxine [From Effexor] Adverse Reaction (Unknown, Verified 01/09/21 16:06) Unknown clopidogrel [From Plavix] Adverse Reaction (Verified 01/09/21 16:06) Unknown DATRIL Allergy (Uncoded 05/15/19 14:29) Unknown NIACOR Allergy (Uncoded 05/15/19 14:29) Unknown RED YEAST RICE Allergy (Uncoded 05/15/19 14:29) Unknown amitex Adverse Reaction (Unknown, Uncoded 05/15/19 14:29) Unknown Medications modafinil 100 mg PO DAILY PRN 09/01/13 [History Confirmed 01/09/21] montelukast 10 mg PO DAILY 09/01/13 [History Confirmed 01/09/21] duloxetine 30 mg PO DAILY 09/09/14 [History Confirmed 01/09/21] cyanocobalamin (vitamin B-12) 1,000 mcg tablet,extended release 1,000 mcg PO QWEEK tab 07/13/17 [History Confirmed 01/09/21] atenolol 25 mg tablet 25 mg PO DAILY tab 05/15/19 [History Confirmed 01/09/21] denosumab 60 mg/mL subcutaneous syringe 60 mg SC [id number] 05/15/19 [History Confirmed 01/09/21] nitroglycerin 0.4 mg sublingual tablet 0.4 mg SUBLINGUAL Q5M PRN #25 tab 09/14/19 [Rx Confirmed 01/09/21] apixaban 5 mg tablet 5 mg PO BID #180 tab 03/13/20 [Rx Confirmed 01/09/21] amlodipine 2.5 mg tablet 2.5 mg PO DAILY #30 tab 06/03/20 [Rx Confirmed 01/09/21] colestipol 1 gram tablet 4 g PO BID tab 07/10/20 [History Confirmed 01/09/21] dicyclomine 10 mg capsule 10 mg PO BID 07/10/20 [History Confirmed 07/10/20] memantine 10 mg tablet 10 mg PO BID 07/10/20 [History Confirmed 01/09/21] Bacillus coagulans 250 million cell chewable tablet cell PO BID tab 01/09/21 [History Confirmed 01/09/21] [facility] Medical History (Updated 01/09/21 @ 15:16 by Ernestine Roman CRM MARKETING ANALYST, CRM MARKETING ANALYST-C) Atherosclerosis of [place] coronary artery of [place] heart without angina pectoris Atypical chest pain Benign essential HTN Dyspnea on exertion Fibromyalgia History of coronary artery stent placement (~08/01/13) History of electrophysiologic study 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 Mixed hyperlipidemia Nonrheumatic aortic (valve) insufficiency Nonrheumatic mitral (valve) prolapse Nonspecific abnormal unspecified cardiovascular function study Obstructive sleep apnea Paroxysmal atrial fibrillation Paroxysmal supraventricular tachycardia by electrocardiogram (ECG) Peptic ulcer disease person hx of primary malignant neoplasm of breast Premature ventricular contractions PSVT (paroxysmal supraventricular tachycardia) Ventricular tachyarrhythmia Surgical History (Reviewed 01/09/21 @ 13:21 by Ernestine Roman CRM MARKETING ANALYST, CRM MARKETING ANALYST-C) History of appendectomy History of cataract surgery History of cholecystectomy History of left heart catheterization History of modified radical mastectomy of right breast (~04/1996) Presence of coronary angioplasty implant and graft (~08/01/13) Family History (Reviewed 01/09/21 @ 13:21 by Ernestine Roman CRM MARKETING ANALYST, CRM MARKETING ANALYST-C) Father CAD (coronary artery disease) <55 Brother CAD (coronary artery disease) <55 Sister Breast cancer Diabetes Son Hypertension Atrial fibrillation Cancer rectal Mother , Age 83 CHF (congestive heart failure) Social History (Reviewed 01/09/21 @ 13:21 by Ernestine Roman CRM MARKETING ANALYST, CRM MARKETING ANALYST-C) Smoking Status: Never smoker alcohol intake: never substance use type: does not use caffeine: No what type of physical activity do you participate in: none seatbelt use: always do you feel safe at home: Yes ROS Const Const: Negative for fatigue, weakness, fever(s), headache(s), chills, frequent falls, weight gain or weight loss Eyes Eyes: Negative for blind spots, loss of peripheral vision, transient loss of vision, blurry vision, change in vision, double vision, floaters or tunnel vision ENT ENT: Negative for headache(s), dizziness, Nosebleed/epistaxis, balance problems or neck pain Cardio Chest Pain: Yes (heaviness) Onset: at rest Location: mid sternal Palpitations: No Edema: None Muscle aches with walking: None Resp Respiratory: Negative for SOB with activity, SOB at rest or SOB orthopnea\SOB lying down GI GI: Negative nausea, vomiting, heartburn, bloating, vomiting blood/hematemesis, bright, red blood in stools or black,tarry stools Musc Musc: Negative for muscle aches/ myalgia, muscle weakness, joint pain or balance problems Neuro Neuro: Negative for dizziness, lightheadedness, near syncope, syncope, orthostatic symptoms, frequent falls, headache(s), weakness, blurry vision or double vision Kranthi Hematologic/Lymphatic: Negative for easy bleeding or easy bruising Endo Endo: Negative for fatigue Cardiology Exam Const Appearance: cooperative and no acute distress Orientation: alert and oriented x3 Head Head: normal to inspection Ears: hearing grossly normal bilaterally Nose: external nose normal Face and Sinus: face symmetric Eyes General: appearance normal, both eyes and all related structures Eyelids: eyelids normal Conjunctivae: conjunctivae normal Pupils: PERRL and pupil size EOM: EOM intact bilaterally Neck Neck: normal visual inspection Carotids: Negative bruit Chest Chest inspection: normal inspection of the chest and normal respiratory effort Auscultation: Bilateral: Clear to Auscultation Cardio Palpation: normal PMI Rate: regular rate Rhythm: regular rhythm Heart sounds: S1 normal and S2 normal; Negative rub, gallop or murmur GI GI: normal to inspection and soft; Negative no hepatosplenomegaly Neuro General: patient alert, patient oriented x3 and CN's II-XI intact bilaterally Skin Skin: no rashes or lesions noted Extremities Pulses: Normal: Right Posterior Tibial Pulse, Left Posterior Tibial Pulse, Right Radial Pulse and Left Radial Pulse Lower Extremity Edema: None: Bilateral Psych Psychological: normal affect Assessment and Plan Assessment and Plan (1) Atherosclerosis of [place] coronary artery of [place] heart without angina pectoris: Status: Chronic Comment: PTCA of LAD 07/2010; DEBO x3 to RCA 08/01/2013 Plan: Patient complains of chest heaviness over the last 1-2 weeks, patient will undergo a stress test. She will continue her risk factor modification and medical therapy. We will continue to monitor. (2) History of coronary artery stent placement: Status: Chronic Comment: PTCA of LAD 07/2010; DEBO x3 to RCA 08/01/2013 Orders: Orders: Nuclear Stress Test - Treadmil Today Plan: Patient has a history of CAD, and PCI as noted in her recent cardiac catheterization in 2018. At that time her coronary stents were patent. Due to her complaint of chest heaviness over the last 1-2 weeks, patient will undergo a stress test. She will continue her risk factor modification and medical therapy. We will continue to monitor. (3) Paroxysmal atrial fibrillation: Status: Chronic Plan: Patient does have a history of PAF, at this time she appears to be in regular rhythm. She will continue with her apixaban 5mg p.o. twice a day, and atenolol 25mg p.o. daily. We will continue to monitor this. (4) Premature ventricular contractions: Status: Chronic Plan: She does have a history of ventricular ectopy. At this time she appears to be doing well, with no symptoms or adverse events. She will continue with medical management and we will continue to monitor. (5) Nonrheumatic mitral (valve) prolapse: Status: Chronic Plan: Her most recent echocardiogram in 2018 is as noted. She appears to be stable based upon history and examination. She will continue her current medical management and we will continue to monitor. (6) Benign essential HTN: Status: Chronic Plan: Patients blood pressure is well controlled at this time. She will continue with her amlodipine 2.5mg p.o. daily and atenolol 25mg p.o. daily. We will continue to monitor. (7) Mixed hyperlipidemia: Status: Chronic Plan: Patient follows PCP for hyperlipidemia. Patient states she is due to have this rechecked within the next few weeks. Patient will continue her medical therapy. We would appreciate a copy of future lipid panel for continuity of care. We will continue to monitor. (8) Chest heaviness: Status: Acute Orders: Orders: Nuclear Stress Test - Treadmil Today Plan: Patient notes chest heaviness which started about 1 to 2 weeks ago. She does have a history of CAD and PCI. A treadmill nuclear stress test will be obtained. Patient will continue current medical therapy. We will continue to monitor. Plan Details Additional Comments: Thank you for allowing me to participate in the care of your patient. Please don't hesitate to call if any issues arise. This note was generated using a voice recognition system and there may be incorrect words, spelling, or punctuation that were not noted when reviewing the office note prior to saving. Follow Up: 9-10months (PFM) Coding Level of Care Code Off vis,est,level 4 Diagnoses Atherosclerosis of [place] coronary artery of [place] heart without angina pectoris I25.10 History of coronary artery stent placement Z95.5 Paroxysmal atrial fibrillation I48.0 Premature ventricular contractions I49.3 Nonrheumatic mitral (valve) prolapse I34.1 Benign essential HTN I10 Mixed hyperlipidemia E78.2 Chest heaviness R07.89 Coding Level of Care Code Off vis,est,level 4 Diagnoses Atherosclerosis of [place] coronary artery of [place] heart without angina pectoris I25.10 History of coronary artery stent placement Z95.5 Paroxysmal atrial fibrillation I48.0 Premature ventricular contractions I49.3 Nonrheumatic mitral (valve) prolapse I34.1 Benign essential HTN I10 Mixed hyperlipidemia E78.2 Chest heaviness R07.89 Supplemental Info Supplemental Information Transthoracic echocardiogram: 07/21/2017 Interpretation Summary Left ventricular systolic function is normal. The estimated ejection fraction is 55 %. The left atrium is mildly enlarged. Borderline enlarged right atrium. Mild diffuse mitral valve thickening. Equivocal mitral valve prolapse. Trivial mitral valve insufficiency. Trivial tricuspid valve insufficiency. Mild (1+) aortic valve insufficiency. Trivial pulmonic valve insufficiency. Transmitral diastolic flow velocities suggest diastolic dysfunction (pseudono rmal pattern). Exercise myocardial perfusion stress test. 09/22/2017 77-year-old lady with a history of chest pain. Previous angioplasty and stenting. Stress protocol: Resting EKG demonstrates sinus bradycardia with a rate of 56 bpm normal intervals and noted resting blood pressure is 142/72 meters of mercury. The patient exercised according to regular Zen protocol for total duration of 5 m inutes completing 2 minutes into stage II of the Zen protocol. The maximum heart rate attained was 169 bpm which was 119% maximum predicted heart rate the maximum workload attained was 7 metabolic equivalents. The patient maintained sinus rhythm throughout the recording. At rest there were no ST or T-wave changes noted suggest ischemia. At peak exercise there was approximately [address] depression noted in leads II, III and aVF V4 V5 and V6. The above is suggestive of ischemia. Patient complained of some shortness of breath and chest heaviness with dissipated. During recovery the ST changes became more upsloping and finally reverted to normal. The resting blood pressure was 142/72 with a peak blood pressure 162/68. Myocardial perfusion protocol. 11.8 mCi of technetium 99m sestamibi was injected at rest. The patient exercised according to regular Zen protocol for total duration of 5 minutes attaining 7 metabolic equivalents. At peak exercise 34.1 mCi of technetium 99m sestamibi was injected. Stress images were obtained stress and rest images were reconstructed and compared in the short axis vertical long and horizontal long axis. Gated images were also obtained. Perfusion SPECT analysis. Review of the stress images demonstrate normal uptake of tracer noted in all areas of the myocardium on this images. The resting images demonstrate a similar patent. No obvious reversibility is noted except for perhaps a small portion of the basal anteroseptal wall. Gated SPECT analysis: The gated ejection fraction is noted to be 63%. Conclusion: Abnormal exercise EKG with evidence of ischemia at a moderate workload. Nuclear images demonstrate no obvious area of ischemia. Preserved ejection fraction. CORONARY ANGIOGRAPHY: 09/27/2017 DOMINANCE: Right Dominant LEFT HEART ASSESSMENT Left Ventricular Ejection Fraction: by LV Gram 60 % Normal LV wall motion Normal Left Ventricular systolic function LEFT MAIN: Angiographically normal LEFT ANTERIOR DECENDING ARTERY: Previously placed stent is patent PROX LAD: Mild luminal irregularities DIAGONAL 1: Proximal - Moderate luminal irregularities up to 50% CIRCUMFLEX ARTERY: Mild luminal irregularities RIGHT CORONARY ARTERY: Previously placed stent has an instent 20 % restenosis Labs: No Data to Display Diagnostics: Chest X-Ray Venous Doppler Study Pulmonary: No Data to Display 01/09/21 1611<Electronically signed by Ernestine Roman NP CRM MARKETING ANALYST-C>Date Ernestine Roman NP CRM MARKETING ANALYST-C 01/09/21 1713<Electronically signed by Rj Malcolm MD>Cosigner Signature:Date (if applicable)Rj Malcolm MD CC: Dr. Tahmina Hartman, ~ Addendum: The patient has undergone further evaluation with an exercise tolerance test/imaging study on 01-21-2021. The results are noted below. Stress Test Report Date: 01-21-2021 Procedure: Exercise tolerance test/imaging study Indications: Chest pain; CAD; status post PCI; cardiac dysrhythmia; ventricular dysrhythmia; MVP Consent: Per the patient Procedure: The patient exercised on a Zen protocol for 6 minutes and 15 seconds completing Stage II and 15 seconds of Stage III achieving a peak heart rate of 162 bpm (118% predicted maximal heart rate) with a peak blood pressure 150/76 mmHg and a peak MET capacity of 7 METs. The baseline ECG demonstrated sinus rhythm. The peak exercise ECG demonstrated somatic/motion artifact with the appearance of approximately 1 to [address] segment depression in leads II, III, and aVF, and approximately 1 mm of horizontal/upsloping ST segment depression in leads V4 through V6 with gradual resolution to baseline in recovery. There was an isolated PVC during exercise. The functional capacity was considered average. There was no complaint of chest discomfort during exercise or recovery. The examination was discontinued secondary to dyspnea. Impression: 1. Technically adequate (percent predicted maximal heart rate greater than 85%) exercise tolerance test 2. Peak exercise ECG with approximately 1 to [address] segment depression in leads II, III, and aVF, and approximately 1 mm horizontal/upsloping ST segment depression in leads V4 through V6 with gradual resolution to baseline in recovery 3. There was an isolated PVC during exercise 4. Nuclear images pending Myocardial perfusion imaging study: Technique: The patient was injected with 11.4 mCi of technetium 99m Cardiolite and subsequently rest SPECT Cardiolite nuclear imaging was obtained in the horizontal long, vertical long, and short axis views. The patient exercised on a Zen protocol for 6 minutes and 15 seconds completing Stage II and 15 seconds of Stage III achieving a peak heart rate of 162 bpm (118% predicted maximal heart rate) with a peak blood pressure 150/76 mmHg and a peak MET capacity of 7 METs. The patient was injected with 35.8 mCi of technetium 99m Cardiolite and subsequently stress SPECT Cardiolite nuclear imaging was obtained in the horizontal long, vertical long, and short axis views. A gated Cardiolite study at peak stress was obtained. Interpretation: Rest and stress SPECT Cardiolite nuclear imaging status post realignment, normalization, and attenuation correction, demonstrates the appearance of relative uniform tracer uptake and myocardial perfusion appearing within normal limits. There are no myocardial perfusion deficits appreciated on the stress polar map images. There is end systolic thickening and brightening. The gated Cardiolite study demonstrates myocardial thickening and inward wall motion. The reported LVEF is 70%. Impression: 1. Rest and stress SPECT Cardiolite nuclear imaging demonstrate relative uniform tracer uptake and myocardial perfusion appearing within normal limits. 2. The gated Cardiolite study reports an LVEF of 70%. The patient's case has been discussed with her. The patient has continued to complain of ongoing chest discomfort. She has considered further evaluation from a cardiac and noncardiac standpoint. From a cardiac standpoint she has elected to proceed with repeat definitive cardiovascular evaluation with a diagnostic cardiac catheterization. The procedure and risk were discussed with her. She was agreeable to this approach. Assessment & Plan Addt'l Comments I have re-examined the patient. There are no clinical changes since date of exam.
[2021-03-04] VITALS (20 sets, daily range): BP systolic 109–153; BP diastolic 56–88; PULSE 59–74; RESP 13–20; TEMP 36.5–37; O2SAT 92–100
--- NOTE | 2021-03-04 08:32 | PCM.HP.BLA ---
Documented by User: MAGDA Solorio 03/04/21 08:37 History and Physical Date of Admission: 03/04/21 ASHANTI ESCALONA, is a 80 year old white female who presents here today for a diagnostic heart cath for an abnormal stress test. She has a history of coronary artery disease status post stenting to LAD in July 2010 and RCA ?3 in July 2013, PAF/SVT/Nonsustained VT/PACs/PVCs, mitral valve prolapse, hyperlipidemia, and PERLA with Bipap therapy and follows with Dr. Gordon. She also has a history of breast cancer in 1995 with chemotherapy and thrombocytopenia. The patient was in the office in December with complaints of chest heaviness, which she states started about 1-2 weeks ago. She notices it more with sitting, not so much with activity. She did note that she had to sit out for a portion of her exercise routine this morning. She is unable to say how long it lasts for. She has not used her nitroglycerin sublingual. She denies chest pain, pressure or palpitations. She does not have any SOB, Orthopnea, and PND. She denies any bleeding issues; no blood in urine, stool or nosebleeds. She denies any decrease in energy level, myalgias, or claudication. She denies edema, or sudden weight gain. She denies dizziness, lightheadedness, syncopal or near syncopal episodes, and headaches. She underwent a stress test in which she had an abnormal EKG noted at peak exercise. She had 1 to [address] depression in leads II, III and aVF in approximately 1 mm of horizontal upsloping ST depression in leads 4 through V6 with gradual resolution to baseline in recovery. Nuclear images were considered normal. Allergies amitriptyline Allergy (Intermediate, Verified 01/09/21 16:06) unknown donepezil [From Aricept] Allergy (Intermediate, Verified 01/09/21 16:06) unknown hydrocodone [From Vicoprofen] Allergy (Intermediate, Verified 01/09/21 16:06) unknown ibuprofen [From Vicoprofen] Allergy (Intermediate, Verified 01/09/21 16:06) unknown sertraline [From Zoloft] Allergy (Intermediate, Verified 01/09/21 16:06) unknown acetaminophen [From Tylenol] Allergy (Verified 01/09/21 16:06) Unknown amoxicillin [Amoxicillin] Allergy (Verified 01/09/21 16:06) Unknown celecoxib [From Celebrex] Allergy (Verified 01/09/21 16:06) Unknown cephalexin [Cephalexin] Allergy (Verified 01/09/21 16:06) Unknown ciprofloxacin [From Cipro] Allergy (Verified 01/09/21 16:06) Unknown ciprofloxacin HCl [From Cipro] Allergy (Verified 01/09/21 16:06) Unknown cyclobenzaprine HCl [From Flexeril] Allergy (Verified 01/09/21 16:06) Unknown diltiazem HCl [From Cardizem] Allergy (Verified 01/09/21 16:06) Unknown doxycycline calcium [From Vibramycin] Allergy (Verified 01/09/21 16:06) Unknown doxycycline hyclate [From Vibramycin] Allergy (Verified 01/09/21 16:06) Unknown doxycycline monohydrate [From Vibramycin] Allergy (Verified 01/09/21 16:06) Unknown erythromycin base [Erythromycin Base] Allergy (Verified 01/09/21 16:06) Unknown Penicillins Allergy (Verified 01/09/21 16:06) Unknown Sulfa (Sulfonamide Antibiotics) Allergy (Verified 01/09/21 16:06) Unknown tolterodine tartrate [From Detrol] Allergy (Verified 01/09/21 16:06) Unknown topiramate [From Topamax] Allergy (Verified 01/09/21 16:06) Unknown tolterodine [From Detrol] Adverse Reaction (Severe, Verified 01/09/21 16:06) Unknown lisinopril Adverse Reaction (Intermediate, Verified 01/09/21 16:06) Pt cannot remember losartan Adverse Reaction (Intermediate, Verified 01/09/21 16:06) diarrhea gabapentin [From Neurontin] Adverse Reaction (Unknown, Verified 01/09/21 16:06) Unknown ondansetron Adverse Reaction (Unknown, Verified 01/09/21 16:06) I don't remember venlafaxine [From Effexor] Adverse Reaction (Unknown, Verified 01/09/21 16:06) Unknown clopidogrel [From Plavix] Adverse Reaction (Verified 01/09/21 16:06) Unknown DATRIL Allergy (Uncoded 05/15/19 14:29) Unknown NIACOR Allergy (Uncoded 05/15/19 14:29) Unknown RED YEAST RICE Allergy (Uncoded 05/15/19 14:29) Unknown amitex Adverse Reaction (Unknown, Uncoded 05/15/19 14:29) Unknown Medications modafinil 100 mg PO DAILY PRN 09/01/13 [History Confirmed 01/09/21] montelukast 10 mg PO DAILY 09/01/13 [History Confirmed 01/09/21] duloxetine 30 mg PO DAILY 09/09/14 [History Confirmed 01/09/21] cyanocobalamin (vitamin B-12) 1,000 mcg tablet,extended release 1,000 mcg PO QWEEK tab 07/13/17 [History Confirmed 01/09/21] atenolol 25 mg tablet 25 mg PO DAILY tab 05/15/19 [History Confirmed 01/09/21] denosumab 60 mg/mL subcutaneous syringe 60 mg SC [id number] 05/15/19 [History Confirmed 01/09/21] nitroglycerin 0.4 mg sublingual tablet 0.4 mg SUBLINGUAL Q5M PRN #25 tab 09/14/19 [Rx Confirmed 01/09/21] apixaban 5 mg tablet 5 mg PO BID #180 tab 03/13/20 [Rx Confirmed 01/09/21] amlodipine 2.5 mg tablet 2.5 mg PO DAILY #30 tab 06/03/20 [Rx Confirmed 01/09/21] colestipol 1 gram tablet 4 g PO BID tab 07/10/20 [History Confirmed 01/09/21] dicyclomine 10 mg capsule 10 mg PO BID 07/10/20 [History Confirmed 07/10/20] memantine 10 mg tablet 10 mg PO BID 07/10/20 [History Confirmed 01/09/21] Bacillus coagulans 250 million cell chewable tablet cell PO BID tab 01/09/21 [History Confirmed 01/09/21] [facility] Medical History (Updated 01/09/21 @ 15:16 by Ernestine Roman NP, [employer]) Atherosclerosis of [place] coronary artery of [place] heart without angina pectoris Atypical chest pain Benign essential HTN Dyspnea on exertion Fibromyalgia History of coronary artery stent placement (~08/01/13) History of electrophysiologic study 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 Mixed hyperlipidemia Nonrheumatic aortic (valve) insufficiency Nonrheumatic mitral (valve) prolapse Nonspecific abnormal unspecified cardiovascular function study Obstructive sleep apnea Paroxysmal atrial fibrillation Paroxysmal supraventricular tachycardia by electrocardiogram (ECG) Peptic ulcer disease person hx of primary malignant neoplasm of breast Premature ventricular contractions PSVT (paroxysmal supraventricular tachycardia) Ventricular tachyarrhythmia Surgical History (Reviewed 01/09/21 @ 13:21 by Ernestine Roman [employer], [employer]) History of appendectomy History of cataract surgery History of cholecystectomy History of left heart catheterization History of modified radical mastectomy of right breast (~04/1996) Presence of coronary angioplasty implant and graft (~08/01/13) Family History (Reviewed 01/09/21 @ 13:21 by Ernestine Roman [employer], INS[employer]OR [employer]) Father CAD (coronary artery disease) <55 Brother CAD (coronary artery disease) <55 Sister Breast cancer Diabetes Son Hypertension Atrial fibrillation Cancer rectal Mother , Age 83 CHF (congestive heart failure) Social History (Reviewed 01/09/21 @ 13:21 by Ernestine Roman [employer]ERTY, INS[employer]OR [employer]) Smoking Status: Never smoker alcohol intake: never substance use type: does not use caffeine: No what type of physical activity do you participate in: none seatbelt use: always do you feel safe at home: Yes ROS Const Const: Negative for fatigue, weakness, fever(s), headache(s), chills, frequent falls, weight gain or weight loss Eyes Eyes: Negative for blind spots, loss of peripheral vision, transient loss of vision, blurry vision, change in vision, double vision, floaters or tunnel vision ENT ENT: Negative for headache(s), dizziness, Nosebleed/epistaxis, balance problems or neck pain Cardio Chest Pain: Yes (heaviness) Onset: at rest Location: mid sternal Palpitations: No Edema: None Muscle aches with walking: None Resp Respiratory: Negative for SOB with activity, SOB at rest or SOB orthopnea\SOB lying down GI GI: Negative nausea, vomiting, heartburn, bloating, vomiting blood/hematemesis, bright, red blood in stools or black,tarry stools Musc Musc: Negative for muscle aches/ myalgia, muscle weakness, joint pain or balance problems Neuro Neuro: Negative for dizziness, lightheadedness, near syncope, syncope, orthostatic symptoms, frequent falls, headache(s), weakness, blurry vision or double vision [place] Hematologic/Lymphatic: Negative for easy bleeding or easy bruising Endo Endo: Negative for fatigue Cardiology Exam Const Appearance: cooperative and no acute distress Orientation: alert and oriented x3 Head Head: normal to inspection Ears: hearing grossly normal bilaterally Nose: external nose normal Face and Sinus: face symmetric Eyes General: appearance normal, both eyes and all related structures Eyelids: eyelids normal Conjunctivae: conjunctivae normal Pupils: PERRL and pupil size EOM: EOM intact bilaterally Neck Neck: normal visual inspection Carotids: Negative bruit Chest Chest inspection: normal inspection of the chest and normal respiratory effort Auscultation: Bilateral: Clear to Auscultation Cardio Palpation: normal PMI Rate: regular rate Rhythm: regular rhythm Heart sounds: S1 normal and S2 normal; Negative rub, gallop or murmur GI GI: normal to inspection and soft; Negative no hepatosplenomegaly Neuro General: patient alert, patient oriented x3 and CN's II-XI intact bilaterally Skin Skin: no rashes or lesions noted Extremities Pulses: Normal: Right Posterior Tibial Pulse, Left Posterior Tibial Pulse, Right Radial Pulse and Left Radial Pulse Lower Extremity Edema: None: Bilateral Psych Psychological: normal affect Assessment & Plan Assessment/Plan (1) Abnormal stress test: (2) Chest heaviness: (3) Atherosclerosis of [place] coronary artery of [place] heart without angina pectoris: (4) History of coronary artery stent placement: PLAN: Patient is scheduled to undergo a diagnostic heart catheterization today. Follow-up will be based upon findings. Documented by User: Dr. Rj Malcolm MD 03/04/21 09:05 Assessment & Plan Addt'l Comments I have re-examined the patient. There are no clinical changes since date of exam.
--- NOTE | 2021-03-04 10:24 | CL.D_ITS ---
Patient Name: ASHANTI ESCALONA Study Date: 03/04/2021 Performing: Rj Malcolm MD Ht: 66.14 inches 168 cm : 1940 Wt: 127.87 lbs 58 kg Age: 81 Gender: female BSA: 1.66 PROCEDURE(S) PERFORMED FE42-QNB/COR/LV PG69-ION W OR WO PTCA, SINGLE CORONARY ARTERY CLINICAL PROFILE AND INDICATIONS Indications: Worsening Angina (despite optial medical therapy as tolerated), Suspected CAD Heart Failure: None Stress/Imaging Date: 01/21/2021tress Test with SPECT MPI: Positive Intermediate Risk (abnormal E CG ETT / negative myocardial perfusion study) Angina Classification Anginal Classification w/in 2 Weeks: CCS III CAD Presentations: Other: worsening angina (despite optial medical therapy as tolerated) CONCLUSIONS Elevated Left Ventricular End Diastolic Pressure Normal LV size, wall motion,and systolic function LVEF: by LV gram 65 % [place] Multivessel CAD Aortic Root dilated RECOMMENDATIONS Risk factor modification Medical therapy Referred for immediate PCI Case discussed / reviewed with Dr. Wilson of Interventional Cardiology DESCRIPTION OF PROCEDURE The patient arrived to the procedure lab. The risks and benefits of the procedure as well as a full d escription of our services here and current unavailability of surgical backup were fully explained to the patient and/or their significant other prior to the catheterization. The Timeout was completed, verifying the correct patient and procedure. The patient's procedural site was prepped and draped in the usual fashion. Local anesthetic was given subcutaneously to right radial region with Lidocaine 2% . Using a modified Seldinger technique, arterial access was obtained via the right radial artery, a 6 Fr sheath was inserted. Left Coronary Artery selective angiography was performed in multiple views u sing a 5 Fr. FL3.5 catheter. Right Coronary Artery selective angiography was then performed in multip le views using a 5 Fr. FR 4 catheter. Left Ventriculography was performed in RIVERA projection using a 5 Fr. Pigtail catheter. LV to AO pullback pressures were then recorded.The arterial sheath was FLUSHED AND pulled and a TR Band was applied for hemostasis CORONARY ANGIOGRAPHY DOMINANCE: Right Dominant LEFT HEART ASSESSMENT Left Ventricular Ejection Fraction: by LV Gram 65 % Normal LV wall motion Elevated Left Ventricular End Diastolic Pressure LVEDP: 24 mmHg LEFT MAIN: distal: eccentric: 10 - 25 % stenosis LEFT ANTERIOR DESCENDING ARTERY: PROX LAD: Previously placed stent is patent MID LAD: smooth: 25 % Stenosis CIRCUMFLEX ARTERY: Mild luminal irregularities RIGHT CORONARY ARTERY: PROX RCA: Previously placed stent is patent MID RCA: Previously placed stent is patent DISTAL RCA: Previously placed stent is patent RT PDA: Mid - hazy: 75 % Stenosis AORTIC ROOT: Dilated COMPLICATIONS No Complications PROCEDURE MEDICATIONS Fentanyl 50 mcg IV Versed 1 mg IV Oxygen: 2 L/min via nasal cannula Brilinta 180 mg PO 03/04/2021 09:52:46 Baby Aspirin (81mg) 4 Tabs PO @ 03/04/2021 09:55:10 Heparin given IA 03/04/2021 09:24:01 Heparin 6000 unit(s) IV 03/04/2021 09:52:33 Verapamil 2.5mg, Ntg 100mcgs, 3000 units of Heparin given IA 03/04/2021 09:24:01 SUMMARY OF HEMODYNAMIC DATA Time AIR REST ECG 08:21:15 AO 92/53 (69) SA 09:28:33 LV 142/-5, 24 09:40:43 LV 144/-5, 24 09:40:49 LV 148/-6, 20 09:41:43 LV 148/-7, 24 09:41:50 LVp 148/-11, 23 09:41:53 AOp 144/63 (96) 09:41:58 AO 148/65 (99) 09:59:24 10:18:54 Signed By Rj Malcolm MD On 03/04/2021 10:23:29 Rj Malcolm MD
--- NOTE | 2021-03-04 10:25 | PCIREPORT_ITS ---
PCI Cardiac Cath Report PCI Report: Procedure performed; Successful percutaneous coronary intervention of mid RPDA stenosis 80% with predilatation by 2 x 12 mm balloon Followed by placement of 2.25 x 15 mm drug-eluting stent/[place] and achievement of excellent result with reduction of stenosis from 80% to 0% and maintenance of EMMA-3 flow Procedure in detail; 81-year-old patient with history of CAD with, prior PCI and stent of LAD and RCA Last cardiac catheterization was done in 2018 I reviewed the angiographic film and she had patency of the LAD stent with the distal LAD nonobstructive atherosclerosis as well patency of the RCA stent was noted This presentation she had symptoms of chest pain and underwent evaluation by nuclear stress test and she had change in the EKG with ST depression noted in the inferior leads and based on her clinical presentation she was brought into the Client Technical Specialist and underwent cardiac catheterization by the primary raw scales operator Dr. Malcolm. We reviewed the angiographic films together and we decided to proceed for intervention to the RPDA which is a new lesion and she had symptoms of chest pain and abnormal electrocardiographic change in the stress test. Patient also had a history of paroxysmal atrial fibrillation and history of CA breast. LV systolic is preserved with normal ejection fraction Consent; Risk and benefit of the procedure explained in detail to the patient she elected to proceed informed consent obtained. Interventional equipment and plan; 1. 6 [place] JR4 guide catheter 2. 0.014 180 cm run-through extract guidewire 3. 2 x 12 mm regular balloon 4. Drug-eluting stent 2.25 x 15 mm Procedure in detail; We proceed with a 6 [place] JR4 guide advanced ascending aorta cannulated ostium of the RCA, followed by angiographic view in the LISANDRO cranial view followed by proceeding with the guide wire run-through across the lesion and we followed by balloon dilatation and placement of a drug-eluting stent 2.25 x 15 mm up to 16 JARON. Patient was given area Brilinta 180 mg, aspirin 325 mg, heparin 6000 IU, units with an ACT level acceptable above 300 Patient tolerated the procedure very well with no complication in the Client Technical Specialist TR band applied to right radial artery arteriotomy site to maintain hemostasis with no complication. Conclusion and recommendation; Successful percutaneous core intervention of significant mid RPDA stenosis with predilatation and placement of drug-eluting stent patient has evaluation by nuclear stress test which is abnormal change in the electrocardiogram Patient continue on dual antiplatelet therapy/DAPT with Brilinta 90 mg twice daily, low-dose 81 mg aspirin for 1 year Patient is scheduled for phase 1 rehab program Patient to follow-up with the primary raw scales operator Dr. Malcolm for continuation of cardiac care and management of other cardiac problems with paroxysmal A. fib. Carlene Wilson MD,[facility].
--- NOTE | 2021-03-04 10:30 | EKG12_ITS ---
Test Reason : AM EKG Blood Pressure : / mmHG Vent. Rate : 066 BPM Atrial Rate : 066 BPM P-R Int : 154 ms QRS Dur : 066 ms QT Int : 434 ms P-R-T Axes : 056 039 031 degrees QTc Int : 454 ms Normal sinus rhythm Nonspecific ST abnormality Abnormal ECG Confirmed by RYAN CORDERO, RJ ([id number]), proposal editor LINDA JAMES ([id number]) on 03/06/2021 9:36:58 AM Referred By: Rj Davis Confirmed By:RJ DAVIS MD
[2021-03-04] MEDS: 0.9% Normal Saline 1,000 ML 150 ML IV (10:59)
--- NOTE | 2021-03-04 13:36 | CRPHASE1 ---
Patient Communication Former Patient:: Phase I PHII Cardiac Rehab Discussed with Patient:: Yes Guide to Cardiac Rehab Given to Patient:: Yes Cardiac Rehab Facility Choice List Given to Patient:: Yes Choice Program [facility] CR PHII:: Communication Given to CR Choice Program Other:: Communication Given to CR Refer Phase II Cardiac Rehab:: Yes Sessions:: 36 sessions - 3 days/wk, 12 weeks Cardiac Rehabilitation Info Cardiac Rehabilitation Program Information: Cardiac Rehabilitation is important for patients like you who are recovering from a heart problem. Cardiac rehabilitation programs are recognized as integral to the continued care of the patient with coronary heart disease. The cardiac rehabilitation program is designed to optimize a patient's physical, psychological, and social functioning. Health rn home care work in cardiac rehabilitation programs and assist you with getting the treatments you need to get stronger and healthier - like exercise, healthy eating habits, and medications. Cardiac rehabilitation has been show to help people with heart problems live longer and have better life enjoyment than people who do not go to cardiac rehabilitation. Please contact the Cardiac Rehabilitation Program at [facility] at in two weeks if you have not heard from them.
--- NOTE | 2021-03-04 13:37 | CRPH1.INSTRU ---
General Education CAD and cardiac anatomy and function:: Patient communicates acknowledgment Explanation of diagnoses and procedures:: Patient communicates acknowledgment Sign/Symptoms of OK:: Patient communicates acknowledgment Antiplatelet therapy: Patient communicates acknowledgment Smoking Patient Nicotine/Smoking Risk Factors Are:: Never smoked Dyslipidemia Patient Dyslipidemia Risk Factors Are:: Total Cholesterol, Triglycerides, HDL Recommendations Include:: Lipid profile provided, Reviewed NCEP/ATP guidelines, Therapeutic Lifestyle Change dietary guidelines Dyslipidemia Response Code:: Patient communicates acknowledgment Overweight/Obesity Patient Overweight/Obesity Risk Factors Are:: BMI Normal [18-25 & < 65 years old] Hypertension Recommendations Include:: Maintain BP <130/85, DASH dietary guidelines, Decrease/maintain normal body weight, Moderation of ETOH Hypertension:: Patient communicates acknowledgment Heart Disease Patient Heart Disease Risk Factors Are:: Family history of heart disease < 65 years old, Previous cardiac event Recommendations Include:: Educated family members of their risk, Educated family members of importance of prevention of heart disease Heart Disease Response Code:: Patient communicates acknowledgment
--- NOTE | 2021-03-04 17:39 | PN.CARD_ITS ---
Subjective Subjective The patient is status post diagnostic cardiac catheterization. She has no new complaints of ongoing chest discomfort or difficulty breathing. She did have post cardiac catheterization site related ecchymoses/hematoma. This was stabilized by the cardiac catheterization laboratory and interventional cardiology. Objective Data Vital Signs: Vital Signs Temp Pulse Resp BP Pulse Ox 97.7 F L 60 15 120/62 96 03/04/21 16:00 03/04/21 16:00 03/04/21 16:00 03/04/21 16:00 03/04/21 16:00 Oxygen Flow Rate (L/min) 2 Oxygen Delivery Method Room Air Weight: 128 lb Body Mass Index (BMI) 20.6 Lab / Micro Data Result Diagrams: 02/26/21 14:27 02/26/21 14:27 Cardiology Labs/Tests Rhythm: Sinus rhythm Cardiac Cath: CONCLUSIONS Elevated Left Ventricular End Diastolic Pressure Normal LV size, wall motion,and systolic function LVEF: by LV gram 65 % [place] Multivessel CAD Aortic Root dilated RECOMMENDATIONS Risk factor modification Medical therapy Referred for immediate PCI Case discussed / reviewed with Dr. Wilson of Interventional Cardiology DESCRIPTION OF PROCEDURE The patient arrived to the procedure lab. The risks and benefits of the procedure as well as a full description of our services here and current un availability of surgical backup were fully explained to the patient and/or their significant other prior to the catheterization. The Timeout was completed, verifying the correct patient and procedure. The patient's procedural site was prepped and draped in the usual fashion. Local anesthetic was given subcutaneously to right radial region with Lidocaine 2%. Using a modified Seldinger technique, arterial access was obtained via the right radial artery, a 6Fr sheath was inserted. Left Coronary Artery selective angiography was performed in multiple views using a 5 Fr. FL3.5 catheter. Right Coronary Artery selective angiography was then performed in multiple views using a 5 Fr. FR 4 catheter. Left Ventriculography was performed in RIVERA projection using a 5 Fr. Pigtail catheter. LV to AO pullback pressures were then recorded.The arterial sheath was FLUSHED AND pulled and a TR Band was applied for hemostasis CORONARY ANGIOGRAPHY DOMINANCE: Right Dominant LEFT HEART ASSESSMENT Left Ventricular Ejection Fraction: by LV Gram 65 % Normal LV wall motion Elevated Left Ventricular End Diastolic Pressure LVEDP: 24 mmHg LEFT MAIN: distal: eccentric: 10 - 25 % stenosis LEFT ANTERIOR DESCENDING ARTERY: PROX LAD: Previously placed stent is patent MID LAD: smooth: 25 % Stenosis CIRCUMFLEX ARTERY: Mild luminal irregularities RIGHT CORONARY ARTERY: PROX RCA: Previously placed stent is patent MID RCA: Previously placed stent is patent DISTAL RCA: Previously placed stent is patent RT PDA: Mid - hazy: 75 % Stenosis AORTIC ROOT: Dilated PCI Report: Procedure performed; Successful percutaneous coronary intervention of mid RPDA stenosis 80% with predilatation by 2 x 12 mm balloon Followed by placement of 2.25 x 15 mm drug-eluting stent/O[place] and achievement of excellent result with reduction of stenosis from 80% to 0% and maintenance of EMMA-3 flow Physical Exam Const alert, oriented x3, no apparent distress and healthy appearing Orientation / Consciousness: awake HEENT normocephalic, head/scalp atraumatic and hearing grossly normal bilaterally Eyes PERRL, EOMs intact bilaterally and conjunctivae normal Neck full ROM, supple and no JVD Resp normal respiratory effort and clear to auscultation bilaterally Cardio regular rate, regular rhythm, S1 normal heart sound and S2 normal heart sound Cardio Narrative: Ectopic beats GI normal to inspection, nondistended, normoactive bowel sounds Extremity no pedal edema Peripheral Pulses: Yes radial pulses present right (Right forearm: Currently in an Moncho wrap with underlying ecchymoses) 2+ Skin no rashes or lesions noted Psych mental status grossly normal Assessment & Plan Assessment/Plan (1) Atherosclerosis of [place] coronary artery of [place] heart without angina pectoris: (2) History of coronary artery stent placement: (3) Paroxysmal atrial fibrillation: (4) Premature ventricular contractions: (5) Mixed hyperlipidemia: (6) Benign essential HTN: (7) Arm bruise: PLAN: The patient has a history of CAD. She has undergone previous PCI. She has now status post repeat cardiac catheterization based upon concerns of ongoing symptoms despite medical management and an abnormal ECG portion of her stress nuclear imaging study. This led to the diagnosis of additional CAD requiring additional PCI. She is currently being monitored in the PCU. Post cardiac catheterization/PCI she was reported as having the development of ecchymoses of her right forearm and concerns of a possible right forearm related hematoma. She was evaluated and treated by the cardiac catheterization laboratory staff and interventional cardiology. She appears to be symptomatically and hemodynamically stable at the moment. She will continue to be monitored. She will be followed for her cardiovascular conditions. She will continue medical therapy as deemed appropriate. With respect to her medications, based upon the cardiac catheterization site related concerns of ecchymoses and possible hematoma, she will continue her aspirin therapy and antiplatelet therapy, however, she may need to have her anticoagulant therapy used for her atrial dysrhythmia on temporary hold. She will continue medical management as deemed appropriate for concerns such as her hyperlipidemia and hypertension. Patient's case has been discussed with the patient and Dr. Wilson of interventional cardiology.
[2021-03-04] MEDS: Memantine Hydrochloride 10 MG Tablet PO (20:21)
[2021-03-04] MEDS: TICAGRELOR 90 MG TABLET PO (20:21)
--- NOTE | 2021-03-05 02:43 | PCS.PANDOC ---
PANDEMIC DOCUMENTATION INITIATED: Date: 02/10/2021 Time: 190
[2021-03-05 03:00] VITALS: PULSE 66
[2021-03-05 03:45] VITALS: BP 121/73; PULSE 69; RESP 18; TEMP 36.6; O2SAT 98
[2021-03-05 06:20] LABS: Absolute Lymphocyte Count 0.77 X10^3/uL (0.83-4.51); Absolute Neutrophil Count 2.4 X10^3/uL (2.0-7.7); Basophil# 0.02 X10^3/uL; Basophil% 0.5 % (0-1); Eosinophil# 0.25 X10^3/uL; Eosinophils% 6.3 % (0-5); Hematocrit 36.7 % (37-47); Lymphocyte # 0.77 X10^3/ul (0.83-4.51); Lymphocyte % 19.3 % (19-41); Mean Corp Hgb Conc 32.7 g/dL (32-36); Mean Corpuscular Hgb 31.3 pg (27.0-32.0); Mean Corpuscular Volume 95.8 fL (81-99); Mean Platelet Vol. 9.3 fl (6.2-12.0); Monocyte# 0.52 X10^3/uL; NRBC Flagged by Analyzer 0 % (0-5); Neutrophil # 2.42 X10^3/uL (2.7-7.7); Neutrophil % 60.4 % (47-70); Platelet Count 166 K/mm3 (150-450); RBC Distribution Width CV 12.5 % (11.6-14.6); RBC Distribution Width SD 43.8 fl (35.1-43.9); Red Blood Count 3.83 M/mm3 (4.2-5.4)
[2021-03-05 06:50] LABS: ALB/GLOB Ratio 0.9 RATIO (0.9-2.4); AST(SGOT) 16 U/L (15-37); Alanine Aminotransfer ALT/SGPT 20 U/L (13-56); Albumin, Serum 2.9 g/dL (3.2-5.0); Alkaline Phosphatase 127 U/L (45-117); Anion Gap 5 (5-15); BUN 25 mg/dL (7-18); BUN/Creat Ratio 21.4 RATIO (10-20); Calcium,Total 7.8 mg/dL (8.5-10.1); Chloride 111 mmol/L (98-107); Creatinine, Serum 1.17 mg/dL (0.55-1.02); EST Glomerular Filtration Rate 47 mL/min (>60); Est Glom Filt Rate - Afr Amer 57 mL/min (>60); Estimated Creatinine Clearance 33.39 ml/min; Globulin 3.4 g/dL (2.2-4.2); Glucose 96 mg/dL (74-106); Potassium 4.1 mmol/L (3.5-5.1); Protein, Total 6.3 g/dL (6.4-8.2); Sodium Level 141 mmol/L (136-145)
[2021-03-05] MEDS: Acetaminophen 325 MG Tablet 650 MG PO (06:51)
[2021-03-05 07:00] VITALS: PULSE 61
[2021-03-05 07:20] VITALS: O2SAT 95
[2021-03-05 09:33] VITALS: BP 113/67; PULSE 68; RESP 16; TEMP 36.8; O2SAT 97
[2021-03-05] MEDS: amLODIPine 2.5 MG Tablet PO (09:38)
[2021-03-05] MEDS: Montelukast 10 MG Tablet PO (09:38)
[2021-03-05] MEDS: Memantine Hydrochloride 10 MG Tablet PO (09:39)
[2021-03-05] MEDS: Cyanocobalamin 500 MCG Tablet 1000 MCG PO (09:39)
[2021-03-05] MEDS: DULoxetine Hcl 30 MG Capsule PO (09:39)
[2021-03-05] MEDS: TICAGRELOR 90 MG TABLET PO (09:39)
[2021-03-05] MEDS: Aspirin E.C. 81 MG Tablet PO (09:39)
--- NOTE | 2021-03-05 10:00 | EKG12_ITS ---
Test Reason : PCI Blood Pressure : / mmHG Vent. Rate : 059 BPM Atrial Rate : 059 BPM P-R Int : 170 ms QRS Dur : 080 ms QT Int : 448 ms P-R-T Axes : 057 021 014 degrees QTc Int : 443 ms Sinus bradycardia Otherwise normal ECG Confirmed by RYAN CORDERO, RJ ([id number]), film and video editor LINDA JAMES ([id number]) on 03/06/2021 9:37:41 AM Referred By: Rj Davis Confirmed By:RJ DAVIS MD
--- NOTE | 2021-03-05 12:26 | DCINST_ITS ---
Discharge Instructions Diet Discharge Diet: Low fat / Low cholesterol Activity Discharge Activity: May Not Drive (x 2 days), May Shower (Today) and May Take a Tub Bath (May not take a tub bath for 7 days) May resume sexual activity in: 1-2 weeks Weight Bearing Status: - (avoid heavy exertional activity for 1-2 weeks) Dressing / Incision Call your doctor if your incision/area has: Continuous Slow Oozing, Sudden Increased Bleeding, Increased Pain/ Swelling, Increased Redness, Foul Smelling Discharge and Swelling at the incision site Call your doctor if you observe: Fever of 101 or Higher, Coldness, Increased Pain, Shortness of breath, Fainting spells, Swelling in the ankles, Chest pain, Increased palpitations (irregular heartbeat) and Uncontrolled pain Remove Dressing in: 1 day Cleanse incision/area with: Soap & Water Follow Up Care Please Follow Up With: Rj Malcolm MD When: [facility] [place]Note 2[place] [facility] office to call with a follow up appointment Test Results: Test results from this visit will be discussed in further detail at your follow-up appointment, if applicable. Discharge Plan Admission Admit Date/Time: 03/04/21 11:55 Primary Reason for Your Visit: Chest Pain; Abnormal Stress Test Attending Provider: Rj Malcolm Primary Care Provider: Tahmina Hartman Consulting Providers: Dianne Blankenship Discharge Orders/Prescriptions Prescriptions: New aspirin 81 mg Tablet,Delayed Release (Dr/Ec) 81 mg PO DAILY@0800 Qty: 0 RF: 0 Brilinta 90 mg Tablet 90 mg PO BID Qty: 0 RF: 0 Continued cyanocobalamin (vitamin B-12) 1,000 mcg tablet extended release 1,000 mcg PO QWEEK RF: 0 Prolia 60 mg/mL syringe 60 mg SC [id number] RF: 0 colestipol 1 gram tablet 4 g PO BID RF: 0 dicyclomine 10 mg capsule 10 mg PO BID RF: 0 memantine 10 mg tablet 10 mg PO BID RF: 0 Digestive Advantage Prob Gummy 250 million cell tablet,chewable 1 cell PO BID RF: 0 modafinil 100 MG tablet 100 mg PO DAILY PRN (Reason: sleep apnea) RF: 0 montelukast 10 MG tablet 10 mg PO DAILY RF: 0 duloxetine 30 MG capsule 30 mg PO DAILY RF: 0 atenolol 25 mg tablet 25 mg PO DAILY RF: 0 nitroglycerin 0.4 mg tablet, sublingual 0.4 mg SUBLINGUAL Q5M PRN (Reason: Chest Pain) Qty: 25 RF: 3 amlodipine 2.5 mg tablet 2.5 mg PO DAILY Qty: 30 RF: 11 Discontinued Eliquis 5 mg tablet 5 mg PO BID Qty: 180 RF: 3 Referrals / Follow Up: Tahmina Hartman DO [Primary Care Provider] - Rj Malcolm MD [STAFF PHYSICIAN] - Disposition Disposition (needs filled in before D/C Order can be placed): Home, Self Care
--- NOTE | 2021-03-05 12:39 | DS.PCM_ITS ---
Providers Date of Admission: 03/04/21 Primary Care Physician: Dr. Tahmina Hartman DO Reason For Visit: ABN STRESS Diagnosis Discharge Diagnosis (1) Atherosclerosis of [place] coronary artery of [place] heart without angina pectoris: Status: Chronic Code(s): I25.10 - Atherosclerotic heart disease of [place] coronary artery without angina pectoris (2) History of coronary artery stent placement: Status: Chronic Code(s): Z95.5 - Presence of coronary angioplasty implant and graft (3) Paroxysmal atrial fibrillation: Status: Chronic Code(s): I48.0 - Paroxysmal atrial fibrillation (4) Premature ventricular contractions: Status: Chronic Code(s): I49.3 - Ventricular premature depolarization (5) Mixed hyperlipidemia: Status: Chronic Code(s): E78.2 - Mixed hyperlipidemia (6) Benign essential HTN: Status: Chronic Code(s): I10 - Essential (primary) hypertension (7) Arm bruise: Status: Acute Code(s): S40.029A - Contusion of unspecified upper arm, initial encounter Medications at Discharge Home Medications modafinil 100 mg PO DAILY PRN 09/01/13 montelukast 10 mg PO DAILY 09/01/13 duloxetine 30 mg PO DAILY 09/09/14 cyanocobalamin (vitamin B-12) 1,000 mcg tablet,extended release 1,000 mcg PO QWEEK tab 07/13/17 atenolol 25 mg tablet 25 mg PO DAILY tab 05/15/19 denosumab 60 mg/mL subcutaneous syringe 60 mg SC [id number] 05/15/19 nitroglycerin 0.4 mg sublingual tablet 0.4 mg SUBLINGUAL Q5M PRN #25 tab 09/14/19 amlodipine 2.5 mg tablet 2.5 mg PO DAILY #30 tab 06/03/20 colestipol 1 gram tablet 4 g PO BID tab 07/10/20 dicyclomine 10 mg capsule 10 mg PO BID 07/10/20 memantine 10 mg tablet 10 mg PO BID 07/10/20 Bacillus coagulans 250 million cell chewable tablet 1 cell PO BID tab 01/09/21 aspirin 81 mg PO DAILY@0800 #0 tab 03/05/21 ticagrelor [Brilinta] 90 mg PO BID #0 tab 03/05/21 Hospital Course Procedures Cardiac catheterization and - (Cardiac Intervention: PCI) Summary of Care Provided Minutes Spent on Discharge: 60 Hospital Course: The patient presented to [facility] for concerns of chest pain and an abnormal ECG stress nuclear imaging study for further evaluation with diagnostic cardiac catheterization. The diagnostic cardiac catheterization was performed and the patient was noted to have progression of [place] vessel CAD in the right PDA distribution. As she had been on optimal medical therapy as best as tolerated, with her symptoms, with her abnormal ECG portion of her nuclear imaging study, it was elected to proceed with further evaluation care with PCI. The patient underwent PCI. She was monitored in the hospital. It was noted following her cardiac catheterization and attempted removal of her right radial artery TR band that she did develop an area of ecchymoses. She was evaluated by the cardiac catheterization team and interventional cardiology. Her cardiac catheterization site appeared to stab ilize. She was monitored overnight. She had no new acute complaints. On this day her cardiac catheterization site appeared to be stable and her right forearm did demonstrate ecchymoses. Status post review of her case it was felt that she was stable for release home for continued outpatient cardiovascular follow- up. In the interim the patient will temporarily hold her anticoagulant therapy with apixaban/Eliquis pending reassessment of her cardiac catheterization site and right forearm. Physical Exam Const alert, oriented x3, no apparent distress and healthy appearing Orientation / Consciousness: awake HEENT normocephalic, head/scalp atraumatic and hearing grossly normal bilaterally Eyes PERRL, EOMs intact bilaterally and conjunctivae normal Neck full ROM, supple and no JVD Resp normal respiratory effort and clear to auscultation bilaterally Cardio regular rate, regular rhythm, S1 normal heart sound and S2 normal heart sound Cardio Narrative: Ectopic beats GI normal to inspection, nondistended, normoactive bowel sounds Extremity no pedal edema Peripheral Pulses: Yes radial pulses present right (Right forearm: Positive ecc hymoses: Negative hematoma: Negative bruit) 2+ Skin no rashes or lesions noted Psych mental status grossly normal Weight / BMI Weight Weight: 128 lb Body Mass Index (BMI) 20.6 ABG / Lab / Microbiology Data Result Diagrams: 03/05/21 05:56 03/05/21 05:56 Laboratory: Laboratory Results - last 24 hr 03/05/21 05:56: WBC 4.0 L, RBC 3.83 L, Hgb 12.0, Hct 36.7 L, MCV 95.8, MCH 31.3, MCHC 32.7, RDW Std Deviation 43.8, RDW Coeff of [place] 12.5, Plt Count 166, MPV 9.3, Immature Gran % (Auto) 0.500, Neut % (Auto) 60.4, Lymph % (Auto) 19.3, [place] % (Auto) 13.0 H, Eos % (Auto) 6.3 H, Baso % (Auto) 0.5, Absolute Neuts (auto) 2.4, Absolute Lymphs (auto) 0.77 L, Nucleated RBC % 0 03/05/21 05:56: Sodium 141, Potassium 4.1, Chloride 111 H, Carbon Dioxide 25.0, Anion Gap 5, BUN 25 H, Creatinine 1.17 H, Estim Creat Clear Calc 33.39, Est GFR (MDRD) Af Amer 57 L, Est GFR (MDRD) Non-Af 47 L, BUN/Creatinine Ratio 21.4 H, Glucose 96, Calcium 7.8 L, Total Bilirubin 0.60, AST 16, ALT 20, Alkaline Phosphatase 127 H, Total Protein 6.3 L, Albumin 2.9 L, Globulin 3.4, Albumin/Globulin Ratio 0.9 D/C Instructions Discharge Diet: Low fat / Low cholesterol May resume sexual activity in: 1-2 weeks Weight Bearing Status: - (avoid heavy exertional activity for 1-2 weeks) Call your doctor if your incision/area has: Continuous Slow Oozing, Sudden Increased Bleeding, Increased Pain/ Swelling, Increased Redness, Foul Smelling Discharge and Swelling at the incision site Call your doctor if you observe: Fever of 101 or Higher, Coldness, Increased Pain, Shortness of breath, Fainting spells, Swelling in the ankles, Chest pain, Increased palpitations (irregular heartbeat) and Uncontrolled pain Cleanse incision/area with: Soap & Water Please Follow Up With: Rj Malcolm MD When: [facility] office to call with a follow up appointment Meaningful Use Info Meaningful Use Diagnoses (Choose all that apply): None applicable Discharge Plan Admission Admit Date/Time: 03/04/21 11:55 Primary Reason for Your Visit: Chest Pain; Abnormal Stress Test Attending Provider: Rj Malcolm Primary Care Provider: Tahmina Hartman Consulting Providers: Dianne Blankenship Discharge Orders/Prescriptions Prescriptions: New aspirin 81 mg Tablet,Delayed Release (Dr/Ec) 81 mg PO DAILY@0800 Qty: 0 RF: 0 Brilinta 90 mg Tablet 90 mg PO BID Qty: 0 RF: 0 Continued cyanocobalamin (vitamin B-12) 1,000 mcg tablet extended release 1,000 mcg PO QWEEK RF: 0 Prolia 60 mg/mL syringe 60 mg SC [id number] RF: 0 colestipol 1 gram tablet 4 g PO BID RF: 0 dicyclomine 10 mg capsule 10 mg PO BID RF: 0 memantine 10 mg tablet 10 mg PO BID RF: 0 Digestive Advantage Prob Gummy 250 million cell tablet,chewable 1 cell PO BID RF: 0 modafinil 100 MG tablet 100 mg PO DAILY PRN (Reason: sleep apnea) RF: 0 montelukast 10 MG tablet 10 mg PO DAILY RF: 0 duloxetine 30 MG capsule 30 mg PO DAILY RF: 0 atenolol 25 mg tablet 25 mg PO DAILY RF: 0 nitroglycerin 0.4 mg tablet, sublingual 0.4 mg SUBLINGUAL Q5M PRN (Reason: Chest Pain) Qty: 25 RF: 3 amlodipine 2.5 mg tablet 2.5 mg PO DAILY Qty: 30 RF: 11 Discontinued Eliquis 5 mg tablet 5 mg PO BID Qty: 180 RF: 3 Referrals / Follow Up: Tahmina Hartman DO [Primary Care Provider] - Rj Malcolm MD [STAFF PHYSICIAN] - Disposition Disposition (needs filled in before D/C Order can be placed): Home, Self Care
--- NOTE | 2021-03-05 12:48 | CASEMGMT ---
Pt to be sent home on Brilinta and script printed, not e-scribed at this time. Pt provided with Brilinta one month free card and instruction, voices understanding. Pt aware to discuss any cost concerns with cardiology office at f/u, voices understanding. Celia DELGADO CM
== END 2021-03-05 12:38 | disposition home or self-care (01) ==
LOC: CLSP 03-05 09:34 → PCU 03-05 09:34
PROVIDERS: Internal Medicine Interventional Cardiology; Physician Assistant Medical; Admitting Provider Internal Medicine Cardiovascular Disease; PCP Internal Medicine; Referring Provider Internal Medicine Cardiovascular Disease; Visit Provider Internal Medicine Cardiovascular Disease
DX: I25.10 Atherosclerotic heart disease of native coronary artery without angina pectoris (principal); I48.0 Paroxysmal atrial fibrillation; Z95.5 Presence of coronary angioplasty implant and graft; E78.2 Mixed hyperlipidemia; G47.33 Obstructive sleep apnea (adult) (pediatric); Z79.01 Long term (current) use of anticoagulants; Z79.899 Other long term (current) drug therapy; I10 Essential (primary) hypertension; M79.7 Fibromyalgia; I49.3 Ventricular premature depolarization; I25.110 Atherosclerotic heart disease of native coronary artery with unstable angina pectoris
CPT/HCPCS: 36415; 71046; 80048; 80053; 85025; 85610; 85730; 92928; 93005; 93458; 96360; 96361; 99152; 99153; 99218; C1874; J7030; J7040; Q9967; C1725; C1769; C1887; C1894; C9600; G0378

== ENCOUNTER 2021-04-04 17:03 | Emergency (ER) | payer MEDICARE, SELFPAY ==
[2021-04-04 17:04] VITALS: BP 98/81; PULSE 66; RESP 18; TEMP 36.1; O2SAT 100; BMI 20.6
[2021-04-04 17:10] VITALS: BP 141/87
--- NOTE | 2021-04-04 17:49 | RAD_ITS ---
EXAM: XR LEFT FOOT COMPLETE, 3 OR MORE VIEWS CLINICAL INDICATION: injury TECHNIQUE: Frontal, lateral and oblique views of the left foot. This report was created using [employer] report generation technology. COMPARISON: None. FINDINGS: BONES/JOINTS: Unremarkable. No acute fracture. No subluxation. Normal alignment. Preservation of the joint space. No sclerotic or destructive changes observed. SOFT TISSUES: There is soft tissue swelling. No radiopaque foreign body. RAD/Foot min 3 Views IMPRESSION: There is soft tissue swelling. Electronically Signed: Mauricio Ruiz MD at 18:32 EDT , Service support ,
--- NOTE | 2021-04-04 17:50 | ED.VIS.LOWEX ---
HPI History of Present Illness Chief Complaint: Lower Extremity Injury Informant: patient Narrative Narrative: 81-year-old female presents the emergency department with left foot ecchymosis swelling and ankle discomfort. She denies any known injury. She believes that she was doing foot exercises the day that it started to swell. She is on Eliquis and prasugrel. She notes pain posterior to the lateral malleolus with ambulation and some midfoot discomfort. She went to urgent care and was sent to emergency [facility] Medical History Atherosclerosis of [place] coronary artery of [place] heart without angina pectoris Atypical chest pain Benign essential HTN Dyspnea on exertion Fibromyalgia History of coronary artery stent placement (03/04/21) History of electrophysiologic study Left arm pain nursing home use of drug Mixed hyperlipidemia Nonrheumatic aortic (valve) insufficiency Nonrheumatic mitral (valve) prolapse Nonspecific abnormal unspecified cardiovascular function study Obstructive sleep apnea Paroxysmal atrial fibrillation Paroxysmal supraventricular tachycardia by electrocardiogram (ECG) Peptic ulcer disease person hx of primary malignant neoplasm of breast Premature ventricular contractions PSVT (paroxysmal supraventricular tachycardia) Ventricular tachyarrhythmia Home Medications modafinil 100 mg PO DAILY PRN 09/01/13 [History Last Taken 09/06/14] montelukast 10 mg PO DAILY 09/01/13 [History Last Taken 09/08/14] duloxetine 30 mg PO DAILY 09/09/14 [History Last Taken 09/08/14] denosumab 60 mg/mL subcutaneous syringe 60 mg SC [id number] 05/15/19 [History Last Taken Unknown] amlodipine 2.5 mg tablet 2.5 mg PO DAILY #30 tab 06/03/20 [Rx Last Taken Unknown] memantine 10 mg tablet 10 mg PO BID 07/10/20 [History Last Taken Unknown] apixaban 5 mg tablet 5 mg PO BID #180 tab 03/19/21 [Rx Last Taken Unknown] prasugrel 10 mg tablet 10 mg PO DAILY #90 tab 03/19/21 [Rx Last Taken Unknown] Allergy/AdvReac Type Severity Reaction Status Date / Time amitriptyline Allergy Intermediate unknown Verified 04/04/21 17:04 donepezil [From Aricept] Allergy Intermediate unknown Verified 04/04/21 17:04 hydrocodone [From Vicoprofen] Allergy Intermediate unknown Verified 04/04/21 17:04 ibuprofen [From Vicoprofen] Allergy Intermediate unknown Verified 04/04/21 17:04 sertraline [From Zoloft] Allergy Intermediate unknown Verified 04/04/21 17:04 acetaminophen [From Tylenol] Allergy Unknown Verified 04/04/21 17:04 adhesive tape Allergy unknown Verified 04/04/21 17:04 amoxicillin [Amoxicillin] Allergy Unknown Verified 04/04/21 17:04 celecoxib [From Celebrex] Allergy Unknown Verified 04/04/21 17:04 cephalexin [Cephalexin] Allergy Unknown Verified 04/04/21 17:04 ciprofloxacin [From Cipro] Allergy Unknown Verified 04/04/21 17:04 ciprofloxacin HCl Allergy Unknown Verified 04/04/21 17:04 [From Cipro] cyclobenzaprine Allergy unknown Verified 04/04/21 17:04 [From Flexeril] cyclobenzaprine HCl Allergy Unknown Verified 04/04/21 17:04 [From Flexeril] dicyclomine Allergy unknown Verified 04/04/21 17:04 diltiazem HCl [From Cardizem] Allergy Unknown Verified 04/04/21 17:04 doxycycline [From Vibramycin] Allergy unknown Verified 04/04/21 17:04 doxycycline calcium Allergy Unknown Verified 04/04/21 17:04 [From Vibramycin] doxycycline hyclate Allergy Unknown Verified 04/04/21 17:04 [From Vibramycin] doxycycline monohydrate Allergy Unknown Verified 04/04/21 17:04 [From Vibramycin] erythromycin base Allergy Unknown Verified 04/04/21 17:04 [Erythromycin Base] nitrofurantoin Allergy unknown Verified 04/04/21 17:04 [From Macrobid] Penicillins Allergy Unknown Verified 04/04/21 17:04 pravastatin Allergy unknown Verified 04/04/21 17:04 red dye Allergy unknown Verified 04/04/21 17:04 Sulfa (Sulfonamide Allergy Unknown Verified 04/04/21 17:04 Antibiotics) tamsulosin Allergy unknown Verified 04/04/21 17:04 tolterodine tartrate Allergy Unknown Verified 04/04/21 17:04 [From Detrol] topiramate [From Topamax] Allergy Unknown Verified 04/04/21 17:04 tolterodine [From Detrol] AdvReac Severe Unknown Verified 04/04/21 17:04 lisinopril AdvReac Intermediate Pt cannot Verified 04/04/21 17:04 remember losartan AdvReac Intermediate diarrhea Verified 04/04/21 17:04 gabapentin [From Neurontin] AdvReac Unknown Unknown Verified 04/04/21 17:04 ondansetron AdvReac Unknown I don't Verified 04/04/21 17:04 remember venlafaxine [From Effexor] AdvReac Unknown Unknown Verified 04/04/21 17:04 clopidogrel [From Plavix] AdvReac Unknown Verified 04/04/21 17:04 DATRIL Allergy Unknown Uncoded 04/04/21 17:04 NIACOR Allergy Unknown Uncoded 04/04/21 17:04 RED YEAST RICE Allergy Unknown Uncoded 04/04/21 17:04 amitex AdvReac Unknown Unknown Uncoded 04/04/21 17:04 Family History Father CAD (coronary artery disease) <55 Brother CAD (coronary artery disease) <55 Sister Breast cancer Diabetes Son Hypertension Atrial fibrillation Cancer rectal Mother , Age 83 CHF (congestive heart failure) Surgical History History of appendectomy History of cataract surgery History of cholecystectomy History of left heart catheterization History of modified radical mastectomy of right breast (~04/1996) Presence of coronary angioplasty implant and graft (03/04/21) Social History Smoking Status: Never smoker alcohol intake: never substance use type: does not use caffeine: No what type of physical activity do you participate in: none seatbelt use: always do you feel safe at home: Yes ROS ROS ED Constitutional Constitutional ED: Denies chills or weight loss Eyes Eyes: Denies change in vision or diplopia ENT ENT ED: Denies ear pain, rhinorrhea or sore throat Cardiovascular Cardiovascular: Denies chest pain, orthopnea, palpitations or racing heartbeat Respiratory/Chest Respiratory/Chest: Denies cough, dyspnea or orthopnea Gastrointestinal Gastrointestinal: Denies abdominal pain, diarrhea, nausea or vomiting Genitourinary Genitourinary ED: Denies dysuria, hematuria or urinary frequency Musculoskeletal Musculoskeletal: Reports other Details: See HPI ; Denies arthralgias or myalgias Integumentary Reports other Details: See HPI ; Denies abscess or rash Neurologic Neurologic: Denies headache(s) or weakness Psychiatric Psychiatric: Denies anxiety, depression, suicidal ideation or suicidal thoughts Endocrine Endocrinology: Denies polydipsia, polyphagia or polyuria Allergic/Immunologic Allergic/Immunologic ED: Denies mouth swelling, tongue swelling or urticaria EXAM Physical Exam Const Vital Signs: 04/04/21 17:04 04/04/21 17:10 Temperature 96.9 F L Temperature Source Temporal Pulse Rate 66 Respiratory Rate 18 Blood Pressure 98/81 H 141/87 H Blood Pressure Mean 86 105 Pulse Ox 100 Positive well nourished and well developed General Appearance ED: well developed HEENT Reports normocephalic, head/scalp atraumatic and moist mucous membranes Eyes PERRL and EOMs intact bilaterally Neck no lymphadenopathy, supple and no JVD Resp normal respiratory effort and clear to auscultation bilaterally Cardio regular rate, regular rhythm and no murmurs GI normal to inspection, nondistended, normoactive bowel sounds and non-tender Palpation: soft Back/Spine no CVA tenderness and normal ROM Extremity Extremity Narrative: There is swelling of the left foot and ankle. There is ecchymotic changes over the dorsal surface and over the lateral malleolus. There is no fibular head tenderness no knee swelling. There is no calf tenderness or cords palpated. She has a strong dorsalis pedis pulse. Neuro oriented x3 and CN's II-XII intact bilaterally Sensorium / Orientation: alert Motor Exam: strength 5/5 throughout Psych mental status grossly normal Mood & Affect: Negative for depressed or tearful Skin no rashes or lesions noted and no wounds MDM MDM MDM Narrative Medical decision making narrative: My interpretation of the plain films of the left foot and ankle is no acute fracture but soft tissue swelling noted. Clinically she has tenderness over the lateral malleolus and posterior to it as well as swelling and ecchymosis. This could be an ankle sprain but I do not the trauma to be definitive. I do think we can Moncho wrap the area and I think over time this should resolve. If not have her follow with primary care Radiography Diagnostic Testing: Clinical Impression(s) from Imaging Studies Foot X-Ray 04/04/21 17:49 IMPRESSION: There is soft tissue swelling. Electronically Signed: Mauricio Ruiz MD at 18:32 EDT , Service support , Ankle X-Ray 04/04/21 17:52 IMPRESSION: There is soft tissue swelling. Electronically Signed: Mauricio Ruiz MD at 18:31 EDT , Service support , Discharge Plan Triage Chief Complaint: Lower Extremity Injury ED Provider: Kirt Her Dx/Rx/DC Orders Clinical Impression: Left ankle sprain Instructions: ED Ankle Sprain (Adult) Prescriptions: No Action Prolia 60 mg/mL syringe 60 mg SC [id number] RF: 0 memantine 10 mg tablet 10 mg PO BID RF: 0 modafinil 100 MG tablet 100 mg PO DAILY PRN (Reason: sleep apnea) RF: 0 montelukast 10 MG tablet 10 mg PO DAILY RF: 0 duloxetine 30 MG capsule 30 mg PO DAILY RF: 0 amlodipine 2.5 mg tablet 2.5 mg PO DAILY Qty: 30 RF: 11 prasugrel [Effient] 10 mg tablet 10 mg PO DAILY Qty: 90 RF: 3 Eliquis 5 mg tablet 5 mg PO BID Qty: 180 RF: 3 Primary Care Provider: Tahmina Hartman Referrals: Tahmina Hartman DO [Primary Care Provider] - 10-14 Days if not better Disposition Disposition: Home, Self Care
--- NOTE | 2021-04-04 17:52 | RAD_ITS ---
STUDY: XR Ankle Min 3 Views REASON FOR EXAM: Female, 81 years old. ANKLE PAIN TECHNIQUE: XR Ankle Min 3 Views COMPARISON: None. FINDINGS: Normal visualized distal tibia and fibula. Normal medial and lateral malleoli. Normal tibiotalar articulation and ankle mortise. The visualized subtalar, talonavicular, calcaneocuboid and tarsal articulations are normal. Normal talus, calcaneus, and tarsal bones. There is soft tissue swelling around the ankle. RAD/Ankle min 3 Views IMPRESSION: There is soft tissue swelling. Electronically Signed: Mauricio Ruiz MD at 18:31 EDT , Service support ,
== END 2021-04-04 18:47 | disposition home or self-care (01) ==
PROVIDERS: Emergency Provider Emergency Medicine; PCP Internal Medicine
DX: S93.402A Sprain of unspecified ligament of left ankle, initial encounter (principal); X58.XXXA Exposure to other specified factors, initial encounter; Y92.9 Unspecified place or not applicable; Y99.9 Unspecified external cause status; E78.2 Mixed hyperlipidemia; G47.33 Obstructive sleep apnea (adult) (pediatric); I10 Essential (primary) hypertension; I25.10 Atherosclerotic heart disease of native coronary artery without angina pectoris; I48.0 Paroxysmal atrial fibrillation; I08.0 Rheumatic disorders of both mitral and aortic valves; Z79.01 Long term (current) use of anticoagulants; Z79.1 Long term (current) use of non-steroidal anti-inflammatories (NSAID); Z85.3 Personal history of malignant neoplasm of breast; Z90.11 Acquired absence of right breast and nipple
CPT/HCPCS: 73610; 73630; 99282

== ENCOUNTER 2022-05-10 00:28 | Observation (INO) | payer MEDICARE, SELFPAY ==
[2022-05-10] VITALS (12 sets, daily range): BP systolic 116–148; BP diastolic 50–74; PULSE 59–70; RESP 12–20; TEMP 36.6–36.8; O2SAT 96–100; BMI 21.9
--- NOTE | 2022-05-10 05:47 | EKG12_ITS ---
Test Reason : CP ADMISSION Blood Pressure : / mmHG Vent. Rate : 060 BPM Atrial Rate : 060 BPM P-R Int : 176 ms QRS Dur : 082 ms QT Int : 444 ms P-R-T Axes : 051 019 018 degrees QTc Int : 444 ms Normal sinus rhythm Normal ECG Confirmed by RYAN CORDERO, EWA ([id number]), editorial intern LINDA JAMES ([id number]) on 05/13/2022 1:17:52 PM Referred By: KIMMIE Confirmed By:EWA DAVIS MD
--- NOTE | 2022-05-10 05:54 | HP.PCM.HOS_ITS ---
HPI - General General Date of Admission: 05/10/22 Date of Service: 05/10/22 Chief Complaint: Chest pain HPI Narrative The patient is an 82 y/o F w/ PMHx: CKD stage III unclear subtype, Frontotemporal dementia, Depression and Anxiety, CAD s/p PCI x 4, HTN, HLD, PERLA, PAF, GERD w/ PUD, Hx R Breast CA s/p modified radical mastectomy who presents to the [facility] from initial OSH ED evaluation at [place] [facility] on 05/09/22 with history of onset chest discomfort starting in the evening while at rest, midsternal with radiation to the right neck with associated dyspnea, nausea without emesis, described as tightness prompting ED presentation. She also notes recent history of notable fatigue and malaise also just starting with her chest pain describing it as severe sudden exhaustion. Upon arrival chest pain 8-->following NG-->down to 5 (NG x 2 administered, held 3rd secondary to transient hypotension). Patient follows w/ Dr. Malcolm and most recent evaluation noted 01/23/22. From review of records she had recent stress testing performed at [facility] per records noted on 01/09/22 demonstrated no conclusive evidence of reversible ischemia or infarct with calculated EF 60% with normal wall motion w/ TID ratio also normal. Most recent cardiac catheterization noted 03/04/21 w/ intervention at that time noted PCI mid RPDA. Work-up in the OSH ED included VS w/ T 98.5, HR 74, BP 130/75, RR 18, 96% on RA, high-sensitivity troponin 25.1 which is normal range, CBC with WC 4.7, hemoglobin 12.6, platelet 173 without marked shift, CMP with sodium 131, potassium 4.1, chloride 105, glucose 139, BUN/creatinine 27/1.26, hepatic profile unremarkable, BNP 311 which is normal range, D-dimer 214 which is normal range, urinalysis with noted specific remedy 1.015, negative leukocytes, negative nitrites, blood noted to be 50 per their range with RBCs 5-10 but no obvious evidence of UTI (no urinary symptoms, obtained only secondary to patient having to urinate and reported notable fatigue to be cautious), EKG w/ NSR with rate 71 BPM with no acute evidence of ischemia similar to prior, CXR w/ linear atelectasis R base otherwise no acute findings. In the OSH ED administered medications: NG x 2 SL administered, held 3rd secondary to transient hypotension, ASA 324 mg po x 1. COVID testing pending upon requested transfer of patient. Upon arrival patient had repeat EKG performed that demonstrated sinus rhythm with no acute evidence of ischemia. She reports upon transition to [facility] PCU ongoing chest discomfort, reported to nurses 6 out of 10 and to physician currently 4 out of 10 in severity, tightness/pressure-like in sensation and points to the right chest with some reproducible discomfort with palpation. [facility] Medical History (Updated 05/10/22 @ 05:[address] Jamila Cheng MD) Atherosclerosis of [place] coronary artery of [place] heart without angina pectoris Benign essential HTN Fibromyalgia History of breast cancer History of coronary artery stent placement (03/04/21) Mixed hyperlipidemia Nonrheumatic aortic (valve) insufficiency Nonrheumatic mitral (valve) prolapse Obstructive sleep apnea Paroxysmal atrial fibrillation Paroxysmal supraventricular tachycardia by electrocardiogram (ECG) Peptic ulcer disease PSVT (paroxysmal supraventricular tachycardia) Home Medications modafinil 100 mg tablet 100 mg PO DAILY PRN sleep apnea 09/01/13 [History Last Taken 09/06/14] montelukast 10 mg tablet 10 mg PO DINNER allergies 09/01/13 [History Last Taken 09/08/14] duloxetine 30 mg capsule,delayed release 30 mg PO DAILY depression/anxiety 09/09/14 [History Last Taken 05/09/22] denosumab 60 mg/mL subcutaneous syringe (Prolia) 60 mg subcut [id number] 05/15/19 [History Last Taken Unknown] memantine 10 mg tablet 10 mg PO BID dementia 07/10/20 [History Last Taken Unknown] Lactobacills gasseri-Bifidobac bifidum,longum 1.5 billion cell capsule (ProHatch) 1 cap PO LUNCH gut health 01/23/22 [History Last Taken 05/09/22] ezetimibe 10 mg tablet (Zetia) 10 mg PO LUNCH cholesterol 01/23/22 [History Last Taken Unknown] apixaban 5 mg tablet (Eliquis) 5 mg PO BID blood thinner 05/10/22 [History Last Taken 05/09/22] budesonide 3 mg capsule,delayed,extended release 3 - 9 mg PO DAILY steroid 05/10/22 [History Last Taken 05/09/22] prasugrel 10 mg tablet (Effient) 10 mg PO LUNCH blood thinner 05/10/22 [History Last Taken Unknown] Allergy/AdvReac Type Severity Reaction Status Date / Time amitriptyline [From Elavil] Allergy Intermediate PT UNSURE Verified 05/10/22 06:11 OF REACTION donepezil [From Aricept] Allergy Intermediate PT UNSURE Verified 05/10/22 06:11 OF REACTION hydrocodone [From Vicoprofen] Allergy Intermediate PT UNSURE Verified 05/10/22 06:11 OF REACTION ibuprofen [From Vicoprofen] Allergy Intermediate PT UNSURE Verified 05/10/22 06:11 OF REACTION sertraline [From Zoloft] Allergy Intermediate PT UNSURE Verified 05/10/22 06:11 OF REACTION acetaminophen [From Tylenol] Allergy PT UNSURE Verified 05/10/22 06:11 OF REACTION adhesive tape Allergy PT UNSURE Verified 05/10/22 06:11 OF REACTION amoxicillin Allergy PT UNSURE Verified 05/10/22 06:11 OF REACTION celecoxib [From Celebrex] Allergy PT UNSURE Verified 05/10/22 06:11 OF REACTION cephalexin Allergy PT UNSURE Verified 05/10/22 06:11 OF REACTION ciprofloxacin [From Cipro] Allergy PT UNSURE Verified 05/10/22 06:11 OF REACTION cyclobenzaprine Allergy PT UNSURE Verified 05/10/22 06:11 [From Flexeril] OF REACTION dicyclomine Allergy PT UNSURE Verified 05/10/22 06:11 OF REACTION diltiazem [From Cardizem] Allergy PT UNSURE Verified 05/10/22 06:11 OF REACTION doxycycline [From Vibramycin] Allergy PT UNSURE Verified 05/10/22 06:11 OF REACTION erythromycin base Allergy PT UNSURE Verified 05/10/22 06:11 OF REACTION niacin Allergy NEEDS Verified 05/10/22 06:11 FOLLOW-UP nitrofurantoin Allergy PT UNSURE Verified 05/10/22 06:11 [From Macrobid] OF REACTION Penicillins Allergy PT UNSURE Verified 05/10/22 06:11 OF REACTION pravastatin Allergy PT UNSURE Verified 05/10/22 06:11 OF REACTION red dye Allergy PT UNSURE Verified 05/10/22 06:11 OF REACTION red yeast rice Allergy PT UNSURE Verified 05/10/22 06:11 OF REACTION Sulfa (Sulfonamide Allergy PT UNSURE Verified 05/10/22 06:11 Antibiotics) OF REACTION tamsulosin Allergy PT UNSURE Verified 05/10/22 06:11 OF REACTION topiramate [From Topamax] Allergy PT UNSURE Verified 05/10/22 06:11 OF REACTION tolterodine [From Detrol] AdvReac Severe PT UNSURE Verified 05/10/22 06:11 OF REACTION lisinopril AdvReac Intermediate PT UNSURE Verified 05/10/22 06:11 OF REACTION losartan AdvReac Intermediate Diarrhea Verified 05/10/22 06:11 gabapentin AdvReac Unknown PT UNSURE Verified 05/10/22 06:11 OF REACTION venlafaxine [From Effexor] AdvReac Unknown PT UNSURE Verified 05/10/22 06:11 OF REACTION clopidogrel [From Plavix] AdvReac PT UNSURE Verified 05/10/22 06:11 OF REACTION guaifenesin AdvReac PT UNSURE Verified 05/10/22 06:11 OF REACTION ondansetron AdvReac PT UNSURE Verified 05/10/22 06:11 OF REACTION phenylephrine AdvReac PT UNSURE Verified 05/10/22 06:11 OF REACTION amitex Allergy PT UNSURE Uncoded 05/10/22 06:11 OF REACTION Family History Father CAD (coronary artery disease) <55 Brother CAD (coronary artery disease) <55 Sister Breast cancer Diabetes Son Hypertension Atrial fibrillation Cancer rectal Mother , Age 83 CHF (congestive heart failure) Surgical History History of appendectomy History of cataract surgery History of cholecystectomy History of left heart catheterization History of modified radical mastectomy of right breast (~04/1996) Presence of coronary angioplasty implant and graft (03/04/21) Social History Smoking Status: Never smoker alcohol intake: never substance use type: does not use caffeine: No what type of physical activity do you participate in: none seatbelt use: always do you feel safe at home: Yes ROS ROS Narrative Admission Review of Systems: CONSTITUTIONAL: No weight loss, fever, chills, + weakness or fatigue. HEENT: + Chronic congestion, rhinorrhea. Eyes: No visual loss, blurred vision, double vision or yellow sclerae. Ears, Nose, Throat: No hearing loss, sneezing or sore throat. SKIN: No rash or itching, lesions, wounds. CARDIOVASCULAR: + chest pain, chest pressure or chest discomfort, No palpitations, edema, orthopnea, syncopal events. RESPIRATORY: No shortness of breath, cough or sputum, wheezing, hemoptysis. GASTROINTESTINAL: No anorexia, nausea, vomiting or diarrhea, abdominal pain, melena, BRBPR. GENITOURINARY: No dysuria, frequency, urgency or retention. NEUROLOGICAL: + Underlying dementia. No headache, dizziness, syncope, paralysis, ataxia, numbness or tingling in the extremities, focal weakness, change in bowel or bladder control, seizure. MUSCULOSKELETAL: + muscle, back pain, joint pain or stiffness. HEMATOLOGIC: + easy bleeding or bruising. LYMPHATICS: No enlarged nodes. No history of splenectomy. PSYCHIATRIC: + history of depression or anxiety. ENDOCRINOLOGIC: No reports of sweating, cold or heat intolerance. No polyuria or polydipsia. ALLERGIES: + history of rhinitis. Vital Signs Vital Signs Vital Signs: 05/10/22 05:47 Oxygen Delivery Method Nasal Cannula Oxygen Flow Rate (L/min) 2 Weight Weight: 132 lb 1.6 oz Body Mass Index (BMI) 21.9 Physical Exam Narrative Physical Examination: General: Awake, alert, oriented x 3, remains cooperative, seated upright in the PCU bed, fatigued, no acute distress. Skin: Normal color, normal turgor, no icterus, no cyanosis. HEENT: AT/NC, EOMI, PERRLA, MMM, no carotid bruits or JVD noted. Lungs: Mildly diminished, > bases, appropriate effort, no rales, ronchi or wheezing. Heart: Regular rate and rhythm; no gallop, rub audible, some reproducible R sided chest discomfort with palpation.. Abdomen: Soft, NTTP, ND, normal BS, no HSM. Extremities: No cyanosis, clubbing, or edema. Neurological: Patient awake, alert, oriented as noted, cognitive function appears intact, does have underlying dementia history of note, speech slowed but answering correctly and appropriate; pupils equally reactive to light and accommodation, cranial nerves grossly normal, moving all 4 extremities, no focal deficits, strength mildly globally decreased secondary to acute complaints. Psychiatric: Affect appears fatigued otherwise normal, no acute evidence of depressive or anxiety feelings. Results Lab / Micro Data Result Diagrams: 05/10/22 05:51 05/10/22 05:51 Assessment & Plan Assessment/Plan (1) Chest pain: PLAN: Plan The patient is an 82 y/o F w/ PMHx: CKD stage III unclear subtype, Frontotemporal dementia, Depression and Anxiety, CAD s/p PCI x 4, HTN, HLD, PERLA, PAF, GERD w/ PUD, Hx R Breast CA s/p modified radical mastectomy who presents to the [facility] from initial OSH ED evaluation at [place] [facility] on 05/09/22 with history of onset chest discomfort starting in the evening while at rest, midsternal with r adiation to the right neck with associated dyspnea, nausea without emesis, described as tightness prompting ED presentation. #1. Chest Pain: EKG in ED with sinus rhythm with no acute evidence of ischemia, CXR w/ linear atelectasis otherwise no acute cardiopulmonary findings, initial trop normal x1. Will admit to PCU, place on a monitored bed to assure no acute myocardial infarction with serial cardiac enzymes and EKGs. Given recent cardiac stress testing 01/09/2022 we will hold off on repeat testing request cardiology evaluation for consideration cardiac catheterization. Magnesium level requested. FLP in a.m. holding patient home Eliquis regimen pending cardiology evaluation in case of decision for cardiac catheterization. ASA, NG, morphine. #2. CAD: Status post PCI, most recent history with noted stress testing performed at [facility] per records noted on 01/09/22 demonstrated no conclusive evidence of reversible ischemia or infarct with calculated EF 60% with normal wall motion w/ TID ratio also normal and most recent cardiac catheterization noted 03/04/21 w/ intervention at that time noted PCI mid RPDA. Given acute presentation with potential consideration for cardiac c atheterization we will hold patient home apixaban, continue patient home prasugrel, aspirin, Zetia, not currently on RADHA inhibitor/ARB or beta-andrae therapy of which cardiology is aware, will defer to their discretion. #3. Hypertension: Patient with noted history, BP within normal range not on any medications, not on RADHA Imdur/ARB nor beta-andrae therapy as noted above, will defer addition to cardiology discretion. #4. Hyperlipidemia: We will continue patient on Zetia regimen, FLP in AM. Not on statin therapy with noted diarrhea as adverse reaction. #5. PAF: Not on rate or rhythm agent, temporarily holding Eliquis therapy for possible consideration cardiac catheterization. #6. CKD stage III unclear subtype: Admission BUN/Cr 27/1.26, baseline renal function appears primarily 1.1-1.4, repeat BMP in AM. #7. Frontotemporal dementia: Complicates presentation, we will continue patient home memantine regimen. #8. Depression and Anxiety: We will continue patient home duloxetine regimen. #9. Allergic rhinitis: We will continue patient home montelukast and fluticasone regimen. #10. GERD w/ PUD: Not on any agent, if necessary may add as needed. #11. Hx R Breast CA: Unclear specific type, s/p modified radical mastectomy, considered in remission #12. PERLA: BiPAP nightly. #13. DVT prophylaxis: SCDs, holding patient home Eliquis regimen for possible catheterization. #14. CODE status: Patient CHRISTOPHER is her son and she notes that she is redoing it recently to place her niece as a secondary and living will is currently in place. Discussed CODE status at length including difference between FULL code, DNR-CCA and DNR-CC status. Following discussions about the differences in these status, requested DNR-CCA, no intubation status. Advanced Care Planning Face to Face Time: 16 minutes. Charges/Coding Visit Charges OBSV E&M: 74436 Initial observation care L3 Procedures Hospitalists Procedures: 24161 Advncd Care Plan 30 Min
[2022-05-10 06:13] LABS: Absolute Lymphocyte Count 1.26 X10^3/uL (0.83-4.51); Absolute Neutrophil Count 2.6 X10^3/uL (2.0-7.7); Basophil# 0.01 X10^3/uL; Basophil% 0.2 % (0-1); Eosinophil# 0.09 X10^3/uL; Hematocrit 36.4 % (37-47); Hemoglobin 11.8 g/dL (12.0-15.0); Lymphocyte # 1.26 X10^3/ul (0.83-4.51); Lymphocyte % 27.8 % (19-41); Mean Corp Hgb Conc 32.4 g/dL (32-36); Mean Corpuscular Hgb 31.1 pg (27.0-32.0); Mean Corpuscular Volume 95.8 fL (81-99); Mean Platelet Vol. 9.7 fl (6.2-12.0); Monocyte# 0.54 X10^3/uL; Monocyte% 11.9 % (0-10); NRBC Flagged by Analyzer 0 % (0-5); Neutrophil # 2.62 X10^3/uL (2.7-7.7); Neutrophil % 57.9 % (47-70); Platelet Count 148 K/mm3 (150-450); RBC Distribution Width CV 13.2 % (11.6-14.6); RBC Distribution Width SD 46.2 fl (35.1-43.9); White Blood Count 4.5 K/mm3 (4.4-11.0)
[2022-05-10 06:26] LABS: Magnesium 2.3 mg/dL (1.6-2.6)
[2022-05-10 06:29] LABS: Troponin-I HS 27 pg/mL (3.0-54.0)
[2022-05-10 06:32] LABS: ALB/GLOB Ratio 1.1 RATIO (0.9-2.4); AST(SGOT) 14 U/L (15-37); Alanine Aminotransfer ALT/SGPT 26 U/L (13-56); Albumin, Serum 3.2 g/dL (3.2-5.0); Alkaline Phosphatase 58 U/L (45-117); Anion Gap 7 (5-15); BUN 22 mg/dL (7-18); BUN/Creat Ratio 20.2 RATIO (10-20); Calcium,Total 8.1 mg/dL (8.5-10.1); Chloride 109 mmol/L (98-107); Cholesterol 199 mg/dL (200); Creatinine, Serum 1.09 mg/dL (0.55-1.02); EST Glomerular Filtration Rate 51 mL/min (>60); Est Glom Filt Rate - Afr Amer 62 mL/min (>60); Estimated Creatinine Clearance 34.57 ml/min; Globulin 2.8 g/dL (2.2-4.2); Glucose 85 mg/dL (74-106); High Density Lipoprotein 69 mg/dL; Potassium 4.1 mmol/L (3.5-5.1); Sodium Level 143 mmol/L (136-145); Triglycerides 51 mg/dL; Very Low Density Lipoprotein 10 mg/dL (5-40)
[2022-05-10] MEDS: Ipratropium/Albuterol Sulfate 3 ML AMPUL.NEB INHALATION ×3 (07:06→19:16)
[2022-05-10] MEDS: 0.9% Normal Saline 1,000 ML 100 ML IV ×2 (07:47→17:32)
--- NOTE | 2022-05-10 07:51 | CPS ---
Discussed with pt on bringing her own Bipap unit in. Pt stated she will call her son to see if he can bring it. Pt was informed that we will set her up on ours if he is unable to bring in hers
--- NOTE | 2022-05-10 08:03 | PCM.CONS.C ---
Assessment & Plan Assessment/Plan (1) Chest pain: PLAN: She presents with chest discomfort which she says is reminiscent of her previous episodes. At this time I would recommend that despite her normal troponin we evaluate her with a coronary angiogram and depending on those findings further recommendations will be made. She will be continued on her current medical therapy in the interim. She has not been on a beta-andrae in the past. She has a long list of medication intolerances apparently. (2) History of coronary artery stent placement: PLAN: She does have a history of coronary artery disease status post previous angioplasty and stenting as noted above. More recent cardiac catheterization results and closed as above. It does appear that she was on prasugrel for antiplatelet therapy together with aspirin. (3) Paroxysmal atrial fibrillation: PLAN: She does have a history of paroxysmal atrial fibrillation she is on Eliquis this will be held temporarily for the procedure and resumed afterwards. (4) Mixed hyperlipidemia: PLAN: She does have evidence of mixed hyperlipidemia and will continue on current medication for improvement in her lipid profile. She has been on acetamide which will be continued. (5) Benign essential HTN: PLAN: Her blood pressure is under good control at this time I would not recommend that we make any major changes. HPI Consult Data Date of Consult: 05/10/22 HPI Narrative HPI Narrative: ASHANTI ESCALONA, is a 82 F who presented to the ER in pulmonary in with chest discomfort described as a heaviness. Patient is known to our service and follows with Dr. Rj Malcolm. The patient had had a stress test in December of this year which was apparently unremarkable. However she has continued to have this chest discomfort and so was transferred here for further evaluation and management. She does have a history of coronary artery disease status post stenting of her left anterior descending artery in July 2010, the right coronary artery in 2013 and most recently in 2019 one of the distal right coronary artery. She also has a history of paroxysmal atrial fibrillation, supraventricular tachyarrhythmia, mitral valve prolapse, hyperlipidemia, and obstructive sleep apnea. There is a remote history of breast carcinoma in 1995 with chemotherapy and resulting thrombocytopenia. She denies any shortness of breath or paroxysmal nocturnal dyspnea or pedal edema. She has been compliant with all her medications. [facility] Medical History Atherosclerosis of [place] coronary artery of [place] heart without angina pectoris Benign essential HTN Fibromyalgia History of breast cancer History of coronary artery stent placement (03/04/21) Mixed hyperlipidemia Nonrheumatic aortic (valve) insufficiency Nonrheumatic mitral (valve) prolapse Obstructive sleep apnea Paroxysmal atrial fibrillation Paroxysmal supraventricular tachycardia by electrocardiogram (ECG) Peptic ulcer disease PSVT (paroxysmal supraventricular tachycardia) Home Medications modafinil 100 mg tablet 100 mg PO DAILY PRN sleep apnea 09/01/13 [History Last Taken 09/06/14] montelukast 10 mg tablet 10 mg PO DINNER allergies 09/01/13 [History Last Taken 09/08/14] duloxetine 30 mg capsule,delayed release 30 mg PO DAILY depression/anxiety 09/09/14 [History Last Taken 05/09/22] denosumab 60 mg/mL subcutaneous syringe (Prolia) 60 mg subcut [id number] 05/15/19 [History Last Taken Unknown] memantine 10 mg tablet 10 mg PO BID dementia 07/10/20 [History Last Taken Unknown] Lactobacills gasseri-Bifidobac bifidum,longum 1.5 billion cell capsule ([email or web address]) 1 cap PO LUNCH gut health 01/23/22 [History Last Taken 05/09/22] ezetimibe 10 mg tablet (Zetia) 10 mg PO LUNCH cholesterol 01/23/22 [History Last Taken Unknown] apixaban 5 mg tablet (Eliquis) 5 mg PO BID blood thinner 05/10/22 [History Last Taken 05/09/22] budesonide 3 mg capsule,delayed,extended release 3 - 9 mg PO DAILY steroid 05/10/22 [History Last Taken 05/09/22] prasugrel 10 mg tablet (Effient) 10 mg PO LUNCH blood thinner 05/10/22 [History Last Taken Unknown] Allergy/AdvReac Type Severity Reaction Status Date / Time amitriptyline [From Elavil] Allergy Intermediate PT UNSURE Verified 05/10/22 06:11 OF REACTION donepezil [From Aricept] Allergy Intermediate PT UNSURE Verified 05/10/22 06:11 OF REACTION hydrocodone [From Vicoprofen] Allergy Intermediate PT UNSURE Verified 05/10/22 06:11 OF REACTION ibuprofen [From Vicoprofen] Allergy Intermediate PT UNSURE Verified 05/10/22 06:11 OF REACTION sertraline [From Zoloft] Allergy Intermediate PT UNSURE Verified 05/10/22 06:11 OF REACTION acetaminophen [From Tylenol] Allergy PT UNSURE Verified 05/10/22 06:11 OF REACTION adhesive tape Allergy PT UNSURE Verified 05/10/22 06:11 OF REACTION amoxicillin Allergy PT UNSURE Verified 05/10/22 06:11 OF REACTION celecoxib [From Celebrex] Allergy PT UNSURE Verified 05/10/22 06:11 OF REACTION cephalexin Allergy PT UNSURE Verified 05/10/22 06:11 OF REACTION ciprofloxacin [From Cipro] Allergy PT UNSURE Verified 05/10/22 06:11 OF REACTION cyclobenzaprine Allergy PT UNSURE Verified 05/10/22 06:11 [From Flexeril] OF REACTION dicyclomine Allergy PT UNSURE Verified 05/10/22 06:11 OF REACTION diltiazem [From Cardizem] Allergy PT UNSURE Verified 05/10/22 06:11 OF REACTION doxycycline [From Vibramycin] Allergy PT UNSURE Verified 05/10/22 06:11 OF REACTION erythromycin base Allergy PT UNSURE Verified 05/10/22 06:11 OF REACTION niacin Allergy NEEDS Verified 05/10/22 06:11 FOLLOW-UP nitrofurantoin Allergy PT UNSURE Verified 05/10/22 06:11 [From Macrobid] OF REACTION Penicillins Allergy PT UNSURE Verified 05/10/22 06:11 OF REACTION pravastatin Allergy PT UNSURE Verified 05/10/22 06:11 OF REACTION red dye Allergy PT UNSURE Verified 05/10/22 06:11 OF REACTION red yeast rice Allergy PT UNSURE Verified 05/10/22 06:11 OF REACTION Sulfa (Sulfonamide Allergy PT UNSURE Verified 05/10/22 06:11 Antibiotics) OF REACTION tamsulosin Allergy PT UNSURE Verified 05/10/22 06:11 OF REACTION topiramate [From Topamax] Allergy PT UNSURE Verified 05/10/22 06:11 OF REACTION tolterodine [From Detrol] AdvReac Severe PT UNSURE Verified 05/10/22 06:11 OF REACTION lisinopril AdvReac Intermediate PT UNSURE Verified 05/10/22 06:11 OF REACTION losartan AdvReac Intermediate Diarrhea Verified 05/10/22 06:11 gabapentin AdvReac Unknown PT UNSURE Verified 05/10/22 06:11 OF REACTION venlafaxine [From Effexor] AdvReac Unknown PT UNSURE Verified 05/10/22 06:11 OF REACTION clopidogrel [From Plavix] AdvReac PT UNSURE Verified 05/10/22 06:11 OF REACTION guaifenesin AdvReac PT UNSURE Verified 05/10/22 06:11 OF REACTION ondansetron AdvReac PT UNSURE Verified 05/10/22 06:11 OF REACTION phenylephrine AdvReac PT UNSURE Verified 05/10/22 06:11 OF REACTION amitex Allergy PT UNSURE Uncoded 05/10/22 06:11 OF REACTION Family History Father CAD (coronary artery disease) <55 Brother CAD (coronary artery disease) <55 Sister Breast cancer Diabetes Son Hypertension Atrial fibrillation Cancer rectal Mother , Age 83 CHF (congestive heart failure) Surgical History History of appendectomy History of cataract surgery History of cholecystectomy History of left heart catheterization History of modified radical mastectomy of right breast (~04/1996) Presence of coronary angioplasty implant and graft (03/04/21) Social History Smoking Status: Never smoker alcohol intake: never substance use type: does not use caffeine: No what type of physical activity do you participate in: none seatbelt use: always do you feel safe at home: Yes Prior Cardiac Testing/Procedures Prior Cardiac Testing/Procedures: Stress Test ROS Constitutional Constitutional: Denies fever(s) or weight loss Eyes Eyes: Reports systems reviewed and no addt'l complaints, except as documented ENT HEENT: Reports systems reviewed and no addt'l complaints, except as documented Cardiovascular Cardiovascular: Reports chest pain at rest; Denies chest pain with activity, dyspnea at rest, dyspnea on exertion, edema, palpitations or paroxysmal nocturnal dyspnea Respiratory/Chest Respiratory/Chest: Denies dyspnea on exertion, productive cough, shortness of breath at rest or shortness of breath with exertion Gastrointestinal Gastrointestinal: Denies change in bowel habits, nausea, vomiting or weight changes Genitourinary Genitourinary: Denies difficulty urinating Musculoskeletal Musculoskeletal: Denies joint stiffness or muscle weakness Integumentary Integumentary: Denies lesions Neurologic Neurologic: Denies dizziness or syncope Psychiatric Psychiatric: Denies anxiety Endocrine Endocrinology: Denies excessive sweating or fatigue Hematologic/Lymphatic Hematologic/Lymphatic: Denies anemia Allergic/Immunologic Allergic/Immunologic: Denies seasonal rhinorrhea Physical Exam Const alert, oriented x3 and no apparent distress General Appearance: cooperative HEENT hearing grossly normal bilaterally Head and Scalp: atraumatic Eyes EOMs intact bilaterally Neck General: normal visual inspection Chest inspection of chest normal and palpation of chest normal Resp normal respiratory effort Auscultation: clear to auscultation bilaterally Cardio regular rate, regular rhythm, S1 normal heart sound and S2 normal heart sound Jugular Venous Distention: JVD GI normal to inspection, nondistended, normoactive bowel sounds Extremity normal capillary refill and no pedal edema Peripheral Pulses: Yes pulses 2+ throughout and femoral pulses present Skin no rashes or lesions noted Neuro oriented x3 and CN's II-XII intact bilaterally Psych Appearance: grossly normal and appropriate Risk Stratification Risk Stratification Applicable: Yes Age >/= 65: Yes >/= 3 CAD Risk Factors (HTN, HLD, DM, family hx of CAD, or current smoker): Yes Aspirin Use in the Past 7 Days: Yes Severe Angina (>/= episodes in 24 hours): No EKG ST Changes >/= 0.5mm: No Positive Cardiac Marker: No EMMA Risk Stratification Score: 3 EMMA % Risk: 13% Risk Objective Data Vital Signs: Vital Signs Temp Pulse Resp BP Pulse Ox O2 Del Method O2 Flow Rate 98.2 F 63 16 148/71 H 99 Nasal Cannula 2 05/10/22 05:30 05/10/22 07:18 05/10/22 07:06 05/10/22 05:30 05/10/22 07:06 05/10/22 07:50 05/10/22 07:50 Oxygen Flow Rate (L/min) 2 Oxygen Delivery Method Nasal Cannula Weight: 132 lb 1.6 oz Body Mass Index (BMI) 21.9 Lab / Micro Data Result Diagrams: 05/10/22 05:51 05/10/22 05:51 Labs: Laboratory Results - last 24 hr 05/10/22 05:51: Magnesium 2.3 05/10/22 05:51: WBC 4.5, RBC 3.80 L, Hgb 11.8 L, Hct 36.4 L, MCV 95.8, MCH 31.1, MCHC 32.4, RDW Std Deviation 46.2 H, RDW Coeff of [place] 13.2, Plt Count 148 L, MPV 9.7, Immature Gran % (Auto) 0.200, Neut % (Auto) 57.9, Lymph % (Auto) 27.8, [place] % (Auto) 11.9 H, Eos % (Auto) 2.0, Baso % (Auto) 0.2, Absolute Neuts (auto) 2.6, Absolute Lymphs (auto) 1.26, Nucleated RBC % 0 05/10/22 05:51: Sodium 143, Potassium 4.1, Chloride 109 H, Carbon Dioxide 27.0, Anion Gap 7, BUN 22 H, Creatinine 1.09 H, Estim Creat Clear Calc 34.57, Est GFR (MDRD) Af Amer 62, Est GFR (MDRD) Non-Af 51 L, BUN/Creatinine Ratio 20.2 H, Glucose 85, Calcium 8.1 L, Total Bilirubin 0.40, AST 14 L, ALT 26, Alkaline Phosphatase 58, Total Protein 6.0 L, Albumin 3.2, Globulin 2.8, Albumin/Globulin Ratio 1.1, Triglycerides 51, Cholesterol 199, LDL Cholesterol 120, VLDL Cholesterol 10, HDL Cholesterol 69 05/10/22 05:51: Troponin I High Sens 27 Cardiology Labs/Tests 05/10/22 05:51: Magnesium 2.3 05/10/22 05:51: WBC 4.5, RBC 3.80 L, Hgb 11.8 L, Hct 36.4 L, MCV 95.8, MCH 31.1, MCHC 32.4, Plt Count 148 L, MPV 9.7, Immature Gran % (Auto) 0.200, Neut % (Auto) 57.9, Lymph % (Auto) 27.8, [place] % (Auto) 11.9 H, Eos % (Auto) 2.0, Baso % (Auto) 0.2, Absolute Neuts (auto) 2.6, Nucleated RBC % 0 05/10/22 05:51: Sodium 143, Potassium 4.1, Chloride 109 H, Carbon Dioxide 27.0, Anion Gap 7, BUN 22 H, Creatinine 1.09 H, Est GFR (MDRD) Af Amer 62, Est GFR (MDRD) Non-Af 51 L, BUN/Creatinine Ratio 20.2 H, Glucose 85, Calcium 8.1 L, Total Bilirubin 0.40, Triglycerides 51, Cholesterol 199, LDL Cholesterol 120, VLDL Cholesterol 10, HDL Cholesterol 69 Rhythm: EKG: ECHO: Stress Test: Cardiac Cath: PCI: CT Surgery: Holter monitor: EPS: PPM: CXR: Chest CT Scan: Radiography Diagnostic Testing: Heart catheterization from 03/04/2021: CONCLUSIONS Elevated Left Ventricular End Diastolic Pressure Normal LV size, wall motion,and systolic function LVEF: by LV gram 65 % [place] Multivessel CAD Aortic Root dilated RECOMMENDATIONS Risk factor modification Medical therapy Referred for immediate PCI Case discussed / reviewed with Dr. Wilson of Interventional Cardiology CORONARY ANGIOGRAPHY DOMINANCE:? Right Dominant LEFT HEART ASSESSMENT Left Ventricular Ejection Fraction: by LV Gram 65 % Normal LV wall motion Elevated Left Ventricular End Diastolic Pressure LVEDP: 24 mmHg LEFT MAIN: distal: eccentric: 10 - 25 % stenosis LEFT ANTERIOR DESCENDING ARTERY: PROX LAD: Previously placed stent is patent MID LAD: smooth: 25 % Stenosis CIRCUMFLEX ARTERY: Mild luminal irregularities RIGHT CORONARY ARTERY: PROX RCA: Previously placed stent is patent MID RCA: Previously placed stent is patent DISTAL RCA: Previously placed stent is patent RT PDA: Mid - hazy: 75 % Stenosis AORTIC ROOT: Dilated Catheterization lab report from 03/04/2021: Successful percutaneous coronary intervention of mid RPDA stenosis 80% with predilatation by 2 x 12 mm balloon Followed by placement of 2.25 x 15 mm drug-eluting stent/Orsiro and achievement of excellent result with reduction of stenosis from 80% to 0% and maintenance of EMMA-3 flow
[2022-05-10 08:12] LABS: Troponin-I HS 25 pg/mL (3.0-54.0)
--- NOTE | 2022-05-10 09:08 | PCM.PN.BLA ---
Progress Note Bones are unremarkable, chest pain appears of resolved. She did have a stress test in December and so cardiology was consulted and plan for cardiac cath in the morning
[2022-05-10] MEDS: Ezetimibe 10 MG Tablet PO (10:29)
[2022-05-10] MEDS: Enoxaparin 40 MG/0.4 ML Syringe SC (10:30)
[2022-05-10 12:23] LABS: Troponin-I HS 23 pg/mL (3.0-54.0)
[2022-05-11] VITALS (16 sets, daily range): BP systolic 95–144; BP diastolic 56–87; PULSE 55–84; RESP 15–18; TEMP 36.4–36.6; O2SAT 94–98
[2022-05-11] MEDS: 0.9% Normal Saline 1,000 ML 100 ML IV (02:22)
[2022-05-11 05:21] LABS: Absolute Lymphocyte Count 1.29 X10^3/uL (0.83-4.51); Absolute Neutrophil Count 2.5 X10^3/uL (2.0-7.7); Basophil# 0.02 X10^3/uL; Basophil% 0.4 % (0-1); Eosinophil# 0.12 X10^3/uL; Eosinophils% 2.6 % (0-5); Hematocrit 34.4 % (37-47); Hemoglobin 11.2 g/dL (12.0-15.0); Lymphocyte # 1.29 X10^3/ul (0.83-4.51); Lymphocyte % 28.5 % (19-41); Mean Corp Hgb Conc 32.6 g/dL (32-36); Mean Corpuscular Hgb 31.9 pg (27.0-32.0); Mean Platelet Vol. 9.8 fl (6.2-12.0); Monocyte# 0.56 X10^3/uL; Monocyte% 12.4 % (0-10); NRBC Flagged by Analyzer 0 % (0-5); Neutrophil # 2.51 X10^3/uL (2.7-7.7); Neutrophil % 55.4 % (47-70); Platelet Count 140 K/mm3 (150-450); RBC Distribution Width CV 13.3 % (11.6-14.6); RBC Distribution Width SD 47.7 fl (35.1-43.9); Red Blood Count 3.51 M/mm3 (4.2-5.4); White Blood Count 4.5 K/mm3 (4.4-11.0)
[2022-05-11] MEDS: Aspirin 81 MG TAB.CHEW PO (05:36)
[2022-05-11 05:49] LABS: Anion Gap 5 (5-15); BUN 25 mg/dL (7-18); BUN/Creat Ratio 20.8 RATIO (10-20); Calcium,Total 7.8 mg/dL (8.5-10.1); Chloride 112 mmol/L (98-107); EST Glomerular Filtration Rate 46 mL/min (>60); Est Glom Filt Rate - Afr Amer 55 mL/min (>60); Glucose 84 mg/dL (74-106); Potassium 4.3 mmol/L (3.5-5.1); Sodium Level 143 mmol/L (136-145)
--- NOTE | 2022-05-11 05:55 | EKG12_ITS ---
Test Reason : am ekg Blood Pressure : / mmHG Vent. Rate : 057 BPM Atrial Rate : 057 BPM P-R Int : 170 ms QRS Dur : 066 ms QT Int : 452 ms P-R-T Axes : 074 061 076 degrees QTc Int : 439 ms Sinus bradycardia Septal infarct , age undetermined , cannot be excluded Abnormal ECG Confirmed by RYAN CORDERO, EWA ([id number]), marketing editor LINDA JAMES ([id number]) on 05/13/2022 1:16:43 PM Referred By: Prosper Confirmed By:EWA DAVIS MD
--- NOTE | 2022-05-11 07:02 | NURSING ---
Report given to laboratory sample carrier at this time. Aware that no orders to obtain consent were given but prep completed.
--- NOTE | 2022-05-11 08:00 | CASEMGMT ---
According to the [facility] website, the following are in-network tertiary facilities: [facility], [facility], [facility], [facility], [facility], and . Celia DELGADO CM
--- NOTE | 2022-05-11 08:52 | CL.D_ITS ---
Patient Name: ASHANTI ESCALONA Study Date: 05/11/2022 Performing: Rj Malcolm MD Ht: 65 inches 165.1 cm : 1940 Wt: 133.82 lbs 60.7 kg Age: 82 Gender: female BSA: 1.67 PROCEDURE(S) PERFORMED [id number])LHC/COR/LV CLINICAL PROFILE AND INDICATIONS Indications: Worsening Angina Heart Failure: None Stress/Imaging Date: 01/21/2021tress Test with SPECT MPI: Positive Intermediate Risk (abnormal ECG ETT / negative myocardial perfusion study) Angina Classification Anginal Classification w/in 2 Weeks: CCS III CAD Presentations: Other: worsening angina CONCLUSIONS Elevated Left Ventricular End Diastolic Pressure Normal LV size, wall motion,and systolic function LVEF: by LV gram 65 % [place] Multivessel CAD Aortic Root dilated RECOMMENDATIONS Risk factor modification Medical therapy Comment: consider chest CTA for further evaluation of the thoracic aorta Comment: case discussed / reviewed with Dr. Traylor of Interventional Cardiology: His recommendation: 1) no further catheter based evaluation / intervention at this time; 2) consider CT surgery evaluation for possible CABG to the LAD, DX, OM DESCRIPTION OF PROCEDURE The patient arrived to the procedure lab. The risks and benefits of the procedure as well as a full description of our services here and current unavailability of surgical backup were fully explained to the patient and/or their significant other prior to the catheterization. The Timeout was completed, verifying the correct patient and procedure. The patient's procedural site was prepped and draped in the usual fashion. Local anesthetic was given subcutaneously to right radial region with Lidocaine 2%. Using a modified Seldinger technique, arterial access was obtained via the right radial artery, a 6Fr sheath was inserted. Left Coronary Artery selective angiography was performed in multiple views using a 5 Fr. 4.0 [place] catheter. Right Coronary Artery selective angiography was then performed in multiple views using a 5 Fr. JR 4 catheter. Left Ventriculography was performed in RIVERA projection using a 5 Fr. Pigtail catheter. LV to AO pullback pressures were then recorded.The arterial sheath was pulled and a TR Band was applied for hemostasis. 12cc air inserted. CORONARY ANGIOGRAPHY DOMINANCE: Right Dominant LEFT HEART ASSESSMENT Left Ventricular Ejection Fraction: by LV Gram 65 % Normal LV wall motion Elevated Left Ventricular End Diastolic Pressure LVEDP: 26 mmHg LEFT MAIN: distal: eccentric: 25 % Stenosis LEFT ANTERIOR DESCENDING ARTERY: PROX LAD: Previously placed stent is patent MID LAD: 50 % Stenosis DISTAL LAD: - apical: small caliber vessel: near terminal portion: 85 % Stenosis DIAGONAL 1: Ostial - small caliber vessel: 75 % Stenosis CIRCUMFLEX ARTERY: Mild luminal irregularities OM 1: Proximal - somewhat hazy: 50 - 75 % Stenosis RIGHT CORONARY ARTERY: PROX RCA: Previously placed stent is patent MID RCA: Previously placed stent is patent DISTAL RCA: Previously placed stent is patent RT PDA: Mid - Previously placed stent is patent AORTIC ROOT: Dilated COMPLICATIONS No Complications PROCEDURE MEDICATIONS Versed 0.5 mg IV Fentanyl 25 mcg IV Fentanyl 25 mcg IV Versed 0.5 mg IV Oxygen: 2 L/min via nasal cannula SUMMARY OF HEMODYNAMIC DATA Time AIR REST ECG 07:25:25 Art 155/64 (97) 07:43:02 AO 127/68 (95) SA 07:47:44 LV 148/7, 30 07:58:29 LV 155/9, 26 07:58:37 LV 142/8, 25 07:59:27 LVp 157/7, 31 07:59:48 LV 155/10, 28 07:59:51 AOp 156/66 (101) 07:59:56 Signed By Rj Malcolm MD On 05/11/2022 08:51:32 Rj Malcolm MD
[2022-05-11] MEDS: 0.9% Normal Saline 1,000 ML 75 ML IV (09:17)
[2022-05-11] MEDS: Isosorbide Mononitrate 30 MG Tablet PO (09:31)
[2022-05-11] MEDS: Ezetimibe 10 MG Tablet PO (09:31)
--- NOTE | 2022-05-11 10:07 | PCM.PN.CARD ---
Subjective Subjective The patient is status post diagnostic cardiac catheterization. She has had no new acute cardiovascular events Objective Data Vital Signs: Vital Signs Temp Pulse Resp BP Pulse Ox O2 Del Method O2 Flow Rate 97.7 F L 57 L 16 144/70 H 96 Room Air 2 05/11/22 09:02 05/11/22 09:02 05/11/22 09:02 05/11/22 09:02 05/11/22 09:02 05/11/22 09:39 05/10/22 20:18 Oxygen Flow Rate (L/min) 2 Oxygen Delivery Method Room Air Weight: 133 lb 13.129 oz Body Mass Index (BMI) 21.9 Intake & Output: Intake and Output for Last 24 Hours 05/09/22 05/10/22 05/11/22 23:59 23:59 23:59 Intake Total 2585 / 2585 1556.66 / 1556.66 Balance 2585 / 2585 1556.66 / 1556.66 Lab / Micro Data Result Diagrams: 05/11/22 04:16 05/11/22 04:16 Labs: Laboratory Results - last 24 hr 05/10/22 11:40: Troponin I High Sens 23 05/11/22 04:16: WBC 4.5, RBC 3.51 L, Hgb 11.2 L, Hct 34.4 L, MCV 98.0, MCH 31.9, MCHC 32.6, RDW Std Deviation 47.7 H, RDW Coeff of [place] 13.3, Plt Count 140 L, MPV 9.8, Immature Gran % (Auto) 0.700, Neut % (Auto) 55.4, Lymph % (Auto) 28.5, [place] % (Auto) 12.4 H, Eos % (Auto) 2.6, Baso % (Auto) 0.4, Absolute Neuts (auto) 2.5, Absolute Lymphs (auto) 1.29, Nucleated RBC % 0 05/11/22 04:16: Sodium 143, Potassium 4.3, Chloride 112 H, Carbon Dioxide 26.0, Anion Gap 5, BUN 25 H, Creatinine 1.20 H, Estim Creat Clear Calc 31.40, Est GFR (MDRD) Af Amer 55 L, Est GFR (MDRD) Non-Af 46 L, BUN/Creatinine Ratio 20.8 H, Glucose 84, Calcium 7.8 L Cardiology Labs/Tests 05/11/22 04:16: WBC 4.5, RBC 3.51 L, Hgb 11.2 L, Hct 34.4 L, MCV 98.0, MCH 31.9, MCHC 32.6, Plt Count 140 L, MPV 9.8, Immature Gran % (Auto) 0.700, Neut % (Auto) 55.4, Lymph % (Auto) 28.5, [place]iles % (Auto) 12.4 H, Eos % (Auto) 2.6, Baso % (Auto) 0.4, Absolute Neuts (auto) 2.5, Nucleated RBC % 0 05/11/22 04:16: Sodium 143, Potassium 4.3, Chloride 112 H, Carbon Dioxide 26.0, Anion Gap 5, BUN 25 H, Creatinine 1.20 H, Est GFR (MDRD) Af Amer 55 L, Est GFR (MDRD) Non-Af 46 L, BUN/Creatinine Ratio 20.8 H, Glucose 84, Calcium 7.8 L Rhythm: Sinus rhythm EKG: Sinus rhythm; no acute ECG changes Cardiac Cath: CONCLUSIONS Elevated Left Ventricular End Diastolic Pressure Normal LV size, wall motion,and systolic function LVEF: by LV gram 65 % [place] Multivessel CAD Aortic Root dilated RECOMMENDATIONS Risk factor modification Medical therapy Comment: consider chest CTA for further evaluation of the thoracic aorta Comment: case discussed / reviewed with Dr. Traylor of Interventional Cardiology: His recommendation: 1) no further catheter based evaluation / intervention at this time; 2) consider CT surgery evaluation for possible CABG to the LAD, DX, OM DESCRIPTION OF? PROCEDURE The patient arrived to the procedure lab. The risks and benefits of the procedure as well as a full description of our services here and current unavailability of surgical backup were fully explained to the patient and/or their significant other prior to the catheterization. The Timeout was completed, verifying the correct patient and procedure. The patient's procedural site was prepped and draped in the usual fashion. Local anesthetic was given subcutaneously to right radial region with Lidocaine 2%. Using a modified Seldinger technique, arterial access was obtained via the right radial artery, a 6Fr sheath was inserted.? Left Coronary Artery selective angiography was performed in multiple views using a 5 Fr. 4.0 [place] catheter. Right Coronary Artery selective angiography was then performed in multiple views using a 5 Fr. JR 4 catheter. Left Ventriculography was performed in RIVERA projection using a 5 Fr. Pigtail catheter. LV to AO pullback pressures were then recorded.The arterial sheath was pulled and a TR Band was applied for hemostasis. 12cc air inserted. CORONARY ANGIOGRAPHY DOMINANCE:? Right Dominant LEFT HEART ASSESSMENT Left Ventricular Ejection Fraction: by LV Gram 65 % Normal LV wall motion Elevated Left Ventricular End Diastolic Pressure LVEDP: 26 mmHg LEFT MAIN: distal: eccentric: 25 % Stenosis LEFT ANTERIOR DESCENDING ARTERY: PROX LAD: Previously placed stent is patent MID LAD: 50 % Stenosis DISTAL LAD: - apical: small caliber vessel: near terminal portion: 85 % Stenosis DIAGONAL 1: Ostial - small caliber vessel: 75 % Stenosis CIRCUMFLEX ARTERY: Mild luminal irregularities OM 1: Proximal - somewhat hazy: 50 - 75 % Stenosis RIGHT CORONARY ARTERY: PROX RCA: Previously placed stent is patent MID RCA: Previously placed stent is patent DISTAL RCA: Previously placed stent is patent RT PDA: Mid - Previously placed stent is patent AORTIC ROOT: Dilated Physical Exam Const alert, oriented x3, no apparent distress and healthy appearing Orientation / Consciousness: awake HEENT normocephalic, head/scalp atraumatic and hearing grossly normal bilaterally Eyes PERRL, EOMs intact bilaterally and conjunctivae normal Neck supple Carotids: normal carotid upstroke Resp normal respiratory effort and clear to auscultation bilaterally Cardio regular rate, regular rhythm, S1 normal heart sound and S2 normal heart sound GI normal to inspection, nondistended, normoactive bowel sounds Extremity no pedal edema Skin no rashes or lesions noted Psych mental status grossly normal Assessment & Plan Assessment/Plan (1) CAD (coronary artery disease): PLAN: The patient has a diagnosis of CAD. Based upon her ongoing chest discomfort, despite negative cardiac enzymes, she subsequently underwent further evaluation with diagnostic cardiac catheterization. The results are as noted. At the present time she is going to continue medical management which will include her aspirin therapy, antiplatelet therapy, based upon her PAF reinitiation of her anticoagulant therapy, with the addition of nitrates as tolerated, and continuation of her nonstatin lipid-lowering therapy. Her case was reviewed by Dr. Traylor of interventional cardiology. He elected not to proceed further catheter-based diagnostic or therapeutic intervention at this time. He requested a future CT surgery opinion as to whether or not she may be a candidate for CABG to the LAD, diagonal branch, and first OM distribution. In the interim, based upon her cardiac catheterization findings suggesting a dilated aortic root, she will also undergo a chest CTA for further evaluation. (2) History of coronary artery stent placement: PLAN: Her previous LAD and RCA stents were patent. She will continue evaluation care as noted above. (3) Paroxysmal atrial fibrillation: PLAN: At the present time she appears to remain in sinus rhythm. She will continue medical therapy with eventual reinitiation of her anticoagulant therapy. (4) Premature ventricular contractions: PLAN: She has a history of PVCs. She will continue medical management (5) Nonrheumatic mitral (valve) prolapse: PLAN: She has a history of MVP. She appears to be stable at this time. She will continue medical therapy and outpatient follow-up. (6) Mixed hyperlipidemia: PLAN: She will continue lipid-lowering therapy as best as possible. (7) Benign essential HTN: PLAN: Blood pressure should be followed with her medicines adjusted accordingly. Addt'l Comments The above was discussed and reviewed with the patient. The aforementioned information was also conveyed to Dr. Iniguez of the [facility] staff This note was generated using a voice recognition system and there may be incorrect words, spelling or punctuation that were not noted when reviewing the office note prior to saving. Procedure Criteria Type of Procedure Procedure Type: Elective Elective Risks - COVID COVID Risk Discussion: The surgeon/proceduralist and patient have discussed in detail the risk of exposure to and/or potential harm posed by the COVID-19 virus with having a surgery/procedure at this time versus the risk of delaying the surgery/procedure. It is not possible to know either the risk of delaying the surgery or procedure or chance of getting an infection with perfect accuracy, but a joint decision was made between the patient and the surgeon/proceduralist to proceed at this time with the scheduled surgery/procedure as indicated on the consent form.
--- NOTE | 2022-05-11 10:20 | CASEMGMT ---
This RN FIDE to room with SON form, explanation done-pt voices understanding, and signs SON form. Original to chart and copy to pt. Pt voices no further questions/concerns/needs. SStaten DANNY CM
--- NOTE | 2022-05-11 15:45 | CT_ITS ---
STUDY: CTA CHEST REASON FOR EXAM: Female, 82 years old. Dilatation of the aorta and aortic root. RADIATION DOSAGE (If Supplied By Facility): CTDIvol = ( 6.37 ) mGy, DLP = ( 229.43 ) mGycm TECHNIQUE: The examination was performed with the intravenous administration of IV 100mL Isovue-370. Post-processing of the angiographic images was performed, with multiplanar reformation and 3D reconstruction. Individualized dose optimization techniques were used for this CT. COMPARISON: Chest, February 26, 2021. FINDINGS: Normal enhancement of the main pulmonary artery and right and left pulmonary arteries. Normal enhancement of the bilateral peripheral pulmonary arteries. There is no demonstrated pulmonary embolism. The root of the aorta measures 3.0 x 2.7 cm. There is dilatation of the ascending thoracic aorta which measures 4.3 x 4.4 cm at the level of the main pulmonary artery (image 71 of series 2 (. This tapers to the aortic arch. Minimal associated atherosclerotic changes. There is no demonstrated aortic dissection. Normal heart and pericardium. Tomo-is-caewbzyc coronary artery calcifications Normal mediastinum. Normal hilar regions. Normal visualized trachea and bronchi. The lungs are well expanded. There are multiple calcified granulomata. The largest, in the left upper lobe measures 0.8 x 0.6 cm diameter. Linear atelectasis at the right lung base. Normal pleura. Normal chest wall structures. There is flattening of the thoracic kyphosis. No lytic or blastic lesions are noted. Normal visualized upper abdomen. CT/CTA Chest W/WO Contrast IMPRESSION: 1. No evidence of pulmonary embolism. 2. Prominent ascending thoracic aorta with a maximum diameter of 4.3 x 4.4 cm. There is no dissection. 3. Old granulomatous disease without acute pulmonary process. Electronically Signed: Seng Murrieta DO at 16:15 [facility] ,
--- NOTE | 2022-05-11 16:01 | DS.PCM_ITS ---
Providers Date of Admission: 05/10/22 Date of Discharge: 05/11/22 Primary Care Physician: Dr. Sabiha Monge MD Consultations 05/10/22 00:22 Consult: Cardiology Routine Consulting Provider: Murtaza Jeter Reason for Consult: Chest pain, recent negative stress testing, CAD Hx EMERGENT Consult: No MD Notified: Yes Date Notified: 05/10/22 Time Notified: 06:30 Method of Notification: Text Reason For Visit: CHEST PAIN, RECENT NEGATIVE STRESS TEST Diagnosis Discharge Diagnosis (1) CAD (coronary artery disease): Status: Acute Code(s): I25.10 - Atherosclerotic heart disease of [place] coronary artery without angina pectoris (2) History of coronary artery stent placement: Status: Chronic Code(s): Z95.5 - Presence of coronary angioplasty implant and graft (3) Paroxysmal atrial fibrillation: Status: Chronic Code(s): I48.0 - Paroxysmal atrial fibrillation (4) Premature ventricular contractions: Status: Chronic Code(s): I49.3 - Ventricular premature depolarization (5) Nonrheumatic mitral (valve) prolapse: Status: Chronic Code(s): I34.1 - Nonrheumatic mitral (valve) prolapse (6) Mixed hyperlipidemia: Status: Chronic Code(s): E78.2 - Mixed hyperlipidemia (7) Benign essential HTN: Status: Chronic Code(s): I10 - Essential (primary) hypertension Medications at Discharge Home Medications modafinil 100 mg tablet 100 mg PO DAILY PRN sleep apnea 09/01/13 montelukast 10 mg tablet 10 mg PO DINNER allergies 09/01/13 duloxetine 30 mg capsule,delayed release 30 mg PO DAILY depression/anxiety 09/09/14 denosumab 60 mg/mL subcutaneous syringe (Prolia) 60 mg subcut [id number] 05/15/19 memantine 10 mg tablet 10 mg PO BID dementia 07/10/20 Lactobacills gasseri-Bifidobac bifidum,longum 1.5 billion cell capsule (Bitdeli) 1 cap PO LUNCH gut health 01/23/22 ezetimibe 10 mg tablet (Zetia) 10 mg PO LUNCH cholesterol 01/23/22 apixaban 5 mg tablet (Eliquis) 5 mg PO BID blood thinner 05/10/22 budesonide 3 mg capsule,delayed,extended release 3 - 9 mg PO DAILY steroid 05/10/22 prasugrel 10 mg tablet (Effient) 10 mg PO LUNCH blood thinner 05/10/22 aspirin 81 mg chewable tablet 81 mg PO BREAKFAST #0 tabs 05/11/22 isosorbide mononitrate 30 mg tablet,extended release 24 hr 30 mg PO DAILY #30 tabs 05/11/22 Hospital Course Procedures Cardiac catheterization, EKG and - (CTA of the chest) Summary of Care Provided Minutes Spent on Discharge: 37 Hospital Course: Mrs. Zaldivar is an 82-year-old white female who presented to the emergency department at [facility] on 05/10/2022 complaining of chest discomfort that started on the evening of presentation while she was at rest. She reported the pain was midsternal with radiation to the right neck and she had associated dyspnea, nausea without emesis and tightness which prompted an ED evaluation. She also complained of fatigue and malaise that started prior to presentation and reported it felt like she was having severe sudden exhaustion when it occurred. Upon arrival she rated her chest pain 8 and following nitroglycerin and the pain was down to 5. It was noted that she follows with Dr. Malcolm as an outpatient and had a recent stress test from 01/09/2022 that demonstrated no conclusive evidence of reversible ischemic disease along with an EF of 60% and no wall motion abnormality. Work-up in the [facility] included VS w/ T 98.5, HR 74, BP 130/75, RR 18, 96% on RA, high-sensitivity troponin 25.1 which is normal range, CBC with WC 4.7, hemoglobin 12.6, platelet 173 without marked shift, CMP with sodium 131, potassium 4.1, chloride 105, glucose 139, BUN/creatinine 27/1.26, hepatic profile unremarkable, BNP 311 which is normal range, D-dimer 214 which is normal range, urinalysis with noted specific remedy 1.015, negative leukocytes, negative nitrites, blood noted to be 50 per their range with RBCs 5-10 but no obvious evidence of UTI (no urinary symptoms, obtained only secondary to patient having to urinate and reported notable fatigue to be cautious), EKG w/ NSR with rate 71 BPM with no acute evidence of ischemia similar to prior, CXR w/ linear atelectasis R base otherwise no acute findings. Upon arrival at this institution she was evaluated by cardiology and did indicate that her chest discomfort was reminiscent of previous episodes which coincided with noted cardiac disease. She was maintained on her medical therapy and cardiac catheterization was recommended. She was taken to [facility] on the a.m. of 05/11/2022 and found to have multivessel [place] CAD with an EF of 65% and a dilated aortic root. The case was discussed with interventional radiologist by Dr. Malcolm and he recommended no further catheter-based intervention and outpatient consultation for CT surgery evaluation with possible CABG to the LAD, diagonal, and OM. Adjustments were made in her home medicati ons including the addition of ICS mononitrate 30 mg daily as well as aspirin 81 mg daily. A CTA of her chest was performed given the concern for dilated aortic root on her cardiac catheterization. CTA demonstrated no PE, prominent ascending thoracic aorta with a maximum diameter of 4.3 x 4.4 cm with no dissection and old granulomatous disease without acute pulmonary process. Dr. Malcolm will arrange outpatient follow-up with his office and send her records to [facility] for further evaluation for possible CABG in the future. Prescription for isosorbide mononitrate was sent to her pharmacy with a 1 month refill and she was instructed to start aspirin 81 mg daily. She was discharged home in stable condition on 05/11/2022. Discharge diagnoses: Chest pain Coronary artery disease Dilated aortic root Hyperlipidemia Hypertension PAF CKD stage III Frontotemporal dementia-mild GERD PUD PERLA History of right breast cancer Depression/anxiety Physical Exam Const alert, oriented x3, no apparent distress and well nourished Constitutional Narrative: Female lying in bed, appears comfortable nontoxic, nursing at bedside and patient is just removed returned from the [facility] Appearance: cooperative, comfortable, well kempt and well developed Orientation / Consciousness: awake, oriented to person, oriented to place and oriented to time Exam Limitations: no limitations HEENT normocephalic, head/scalp atraumatic and moist oral mucous membranes HEENT Narrative: Mild hearing impairment Eyes PERRL, EOMs intact bilaterally and conjunctivae normal Eyes Narrative: No scleral icterus Neck no lymphadenopathy, supple and no JVD Neck Narrative: Trachea midline, no thyroid enlargement Resp normal respiratory effort, no retractions, no use of accessory muscles and clear to auscultation bilaterally Auscultation: Negative for crackles, rales, rhonchi or wheezes Cardio regular rate, regular rhythm, S1 normal heart sound, S2 normal heart sound, no murmurs, no rub, no gallops and no clicks GI normal to inspection, nondistended, normoactive bowel sounds, soft to palpation and non-tender Extremity no clubbing, cyanosis or edema Extremity Narrative: 2+ pedal pulses, post cath radial compression device in place Skin no rashes or lesions noted, no wounds, skin turgor normal and no jaundice Neuro oriented x3, CN's II-XII intact bilaterally, moves all extremities and no focal motor deficits Sensorium / Orientation: awake, alert, oriented to person, oriented to place and oriented to time Speech: speech normal Psych affect normal Psych Narrative: Very pleasant and appropriately interactive Weight / BMI Weight Weight: 60.7 kg Body Mass Index (BMI) 21.9 ABG / Lab / Microbiology Data Result Diagrams: 05/11/22 04:16 05/11/22 04:16 Laboratory: Laboratory Results - last 24 hr 05/11/22 04:16: WBC 4.5, RBC 3.51 L, Hgb 11.2 L, Hct 34.4 L, MCV 98.0, MCH 31.9, MCHC 32.6, RDW Std Deviation 47.7 H, RDW Coeff of [place] 13.3, Plt Count 140 L, MPV 9.8, Immature Gran % (Auto) 0.700, Neut % (Auto) 55.4, Lymph % (Auto) 28.5, [place] % (Auto) 12.4 H, Eos % (Auto) 2.6, Baso % (Auto) 0.4, Absolute Neuts (auto) 2.5, Absolute Lymphs (auto) 1.29, Nucleated RBC % 0 05/11/22 04:16: Sodium 143, Potassium 4.3, Chloride 112 H, Carbon Dioxide 26.0, Anion Gap 5, BUN 25 H, Creatinine 1.20 H, Estim Creat Clear Calc 31.40, Est GFR (MDRD) Af Amer 55 L, Est GFR (MDRD) Non-Af 46 L, BUN/Creatinine Ratio 20.8 H, Glucose 84, Calcium 7.8 L Meaningful Use Info Meaningful Use Diagnoses (Choose all that apply): None applicable Discharge Plan Admission Admit Date/Time: 05/10/22 05:22 Primary Reason for Your Visit: Chest Pain Attending Provider: Concepción Iniguez Primary Care Provider: Sabiha Monge Consulting Providers: Murtaza Jeter ; Jamila Cheng ; Winston Osborn Discharge Orders/Prescriptions Prescriptions: New isosorbide mononitrate 30 mg Tablet Extended Release 24 Hr 30 mg PO DAILY Qty: 30 1RF aspirin 81 mg Tablet,Chewable 81 mg PO BREAKFAST Qty: 0 0RF Continued Prolia 60 mg/mL syringe 60 mg SC [id number] memantine 10 mg tablet 10 mg PO BID ezetimibe [Zetia] 10 mg tablet 10 mg PO LUNCH Bitdeli 1.5 billion cell capsule 1 cap PO LUNCH modafinil 100 MG tablet 100 mg PO DAILY PRN (Reason: sleep apnea) Label Comments: MENTAL HEALTH montelukast 10 MG tablet 10 mg PO DINNER Label Comments: allergies duloxetine 30 MG capsule 30 mg PO DAILY Label Comments: for fibromyalgia budesonide 3 mg capsule,delayed,extend.release 3 - 9 mg PO DAILY Rx Instructions: to take 3 capsules daily for 8 weeks, 2 capsules daily for 2 weeks, 1 capsule for 1 week. through Jun 01. prasugrel [Effient] 10 mg tablet 10 mg PO LUNCH Eliquis 5 mg tablet 5 mg PO BID Referrals / Follow Up: Rj Malcolm MD [Med Staff - Active Staff] - See Referral Note (call for appt to be seen in 2-4 weeks for hospital follow-up) Sabiha Monge MD [Primary Care Provider] - Within 2 Weeks Disposition Disposition (needs filled in before D/C Order can be placed): Home, Self Care Charges/Coding Visit Charges Inpatient E&M: 89067 Disch Hosp
== END 2022-05-11 16:22 | disposition home or self-care (01) ==
PROVIDERS: Family Medicine; Admitting Provider Family Medicine; PCP Student in an Organized Health Care Education/Training Program; Visit Provider Internal Medicine
DX: R07.89 Other chest pain (principal); G31.09 Other frontotemporal neurocognitive disorder; I77.819 Aortic ectasia, unspecified site; I48.0 Paroxysmal atrial fibrillation; N18.30 Chronic kidney disease, stage 3 unspecified; I25.10 Atherosclerotic heart disease of native coronary artery without angina pectoris; M79.7 Fibromyalgia; F41.9 Anxiety disorder, unspecified; F32.A Depression, unspecified; E78.2 Mixed hyperlipidemia; K21.9 Gastro-esophageal reflux disease without esophagitis; Z79.02 Long term (current) use of antithrombotics/antiplatelets; I12.9 Hypertensive chronic kidney disease with stage 1 through stage 4 chronic kidney disease, or unspecified chronic kidney disease; I49.3 Ventricular premature depolarization; R03.1 Nonspecific low blood-pressure reading; Z79.899 Other long term (current) drug therapy; Z79.01 Long term (current) use of anticoagulants; Z79.82 Long term (current) use of aspirin; G47.33 Obstructive sleep apnea (adult) (pediatric)
CPT/HCPCS: 36415; 71275; 80048; 80053; 80061; 83735; 84484; 85025; 93005; 93458; 94640; 96360; 96361; 96372; 99152; 99153; 99218; J7030; Q9967; C1769; C1894; G0378

== ENCOUNTER 2022-08-01 09:17 | Observation (INO) | payer MEDICARE, SELFPAY ==
[2022-08-01 08:50] VITALS: BP 113/64; PULSE 64; RESP 16; TEMP 36.7; O2SAT 96
[2022-08-01 09:38] LABS: Hematocrit 36.2 % (37-47); Hemoglobin 11.8 g/dL (12.0-15.0); Mean Corp Hgb Conc 32.6 g/dL (32-36); Mean Corpuscular Hgb 30.3 pg (27.0-32.0); Mean Corpuscular Volume 93.1 fL (81-99); Mean Platelet Vol. 9.5 fl (6.2-12.0); Platelet Count 121 K/mm3 (150-450); RBC Distribution Width CV 14.8 % (11.6-14.6); RBC Distribution Width SD 50.9 fl (35.1-43.9); Red Blood Count 3.89 M/mm3 (4.2-5.4); White Blood Count 3.8 K/mm3 (4.4-11.0)
[2022-08-01 09:57] LABS: ALB/GLOB Ratio 1.2 RATIO (0.9-2.4); AST(SGOT) 21 U/L (15-37); Alanine Aminotransfer ALT/SGPT 18 U/L (13-56); Albumin, Serum 3.4 g/dL (3.2-5.0); Alkaline Phosphatase 52 U/L (45-117); Anion Gap 8 (5-15); BUN 22 mg/dL (7-18); BUN/Creat Ratio 17.9 RATIO (10-20); Calcium,Total 8.4 mg/dL (8.5-10.1); Chloride 110 mmol/L (98-107); Creatinine, Serum 1.23 mg/dL (0.55-1.02); EST Glomerular Filtration Rate 44 mL/min (>60); Est Glom Filt Rate - Afr Amer 53 mL/min (>60); Globulin 2.9 g/dL (2.2-4.2); Glucose 88 mg/dL (74-106); Potassium 3.9 mmol/L (3.5-5.1); Protein, Total 6.3 g/dL (6.4-8.2); Sodium Level 144 mmol/L (136-145); Troponin-I HS 35 pg/mL (3.0-54.0)
--- NOTE | 2022-08-01 09:59 | EKG12_ITS ---
Test Reason : Blood Pressure : / mmHG Vent. Rate : 063 BPM Atrial Rate : 063 BPM P-R Int : 172 ms QRS Dur : 068 ms QT Int : 446 ms P-R-T Axes : 069 040 052 degrees QTc Int : 456 ms Normal sinus rhythm Nonspecific ST and T wave abnormality Abnormal ECG When compared with ECG of 11-MAY-2022 05:08, Criteria for Septal infarct are no longer Present Confirmed by GABRIEL CORDERO, OTF ([id number]), scientific publications editor LINDA JAMES ([id number]) on 08/04/2022 9:08:01 AM Referred By: Confirmed By:OTF RIOS MD
--- NOTE | 2022-08-01 09:59 | ECHOCS_ITS ---
Reason For Study: Chest Pain Procedure This was a 2D Doppler, Color Flow transthoracic echocardiogram. Contrast injection was performed. Exam performed portable in patient room. Left Ventricle Normal LV size. The estimated ejection fraction is 65 %. Normal diastology for age. No regional wall motion abnormalities noted. Right Ventricle Normal RV size. Normal systolic function. Atria Normal left atrium. Normal right atrium. No doppler evidence for ASD. Mitral Valve There is no mitral valve stenosis. Trivial mitral valve insufficiency. Tricuspid Valve There is no tricuspid stenosis. Trivial tricuspid valve insufficiency. Unable to estimate RV systolic pressure due to insufficient tricuspid regurgitant envelope. Aortic Valve Trisinus/trileaflet aortic valve. There is no aortic stenosis. Mild (1+) aortic valve insufficiency. Pulmonic Valve There is no pulmonic valvular stenosis. No pulmonic valve insufficiency identified. Great Vessels Normal aortic root. Pericardium/Pleural No pericardial effusion. Medication Diluted definity 1.5ml given slow IV push to enhance endocardial definition. MMode/2D Measurements & Calculations LVIDd: 5.2 cm IVSd: 0.81 cm Ao root diam: 4.0 cm LVIDs: 3.9 cm LVPWd: 0.71 cm RVDd: 2.3 cm FS: 25.6 % LAV(MOD-bp): 39.7 ml LVAd ap4: 26.0 cm2 SV(MOD-sp4): 39.0 ml LAV(MOD-bp) Indexed: 24.1 ml/m2 LVLd ap4: 7.1 cm LAV(MOD-sp2): 57.9 ml EDV(MOD-sp4): 77.6 ml LAV(MOD-sp4): 27.3 ml EDV(sp4-el): 80.5 ml LVAs ap4: 16.7 cm2 LVLs ap4: 6.0 cm ESV(MOD-sp4): 38.6 ml ESV(sp4-el): 39.5 ml EF(MOD-sp4): 50.3 % EF(sp4-el): 51.0 % SV(sp4-el): 41.0 ml LA A4 area: 14.0 cm2 LA dimension(2D): 2.8 cm RA A4 area: 12.9 cm2 Time Measurements MV dec time: 0.36 sec Doppler Measurements & Calculations MV E max mike: 57.1 cm/sec Lat Peak E' Mike: 4.3 cm/sec Med Peak E' Mike: 5.7 cm/sec MV A max mike: 114.2 cm/sec E/E' lat: 13.2 E/E' med: 10.0 MV E/A: 0.50 MV dec slope: 156.7 cm/sec2 Ao V2 max: 122.3 cm/sec AI max mike: 453.7 cm/sec Ao max P.0 mmHg AI max P.3 mmHg Ao V2 mean: 82.9 cm/sec AI dec slope: 217.1 cm/sec2 Ao mean P.2 mmHg AI P1/2t: 612.1 msec Ao V2 VTI: 31.5 cm LV V1 max: 90.8 cm/sec PA V2 max: 86.5 cm/sec TR max mike: 213.1 cm/sec LV V1 max P.3 mmHg TR max P.2 mmHg ECHO/Echo Complete W/ Contrast Interpretation Summary The estimated ejection fraction is 65 %. Trivial mitral valve insufficiency. Mild (1+) aortic valve insufficiency. Ordering Physician: Yasmeen Bruce Referring Physician: Sabiha Monge Performed By: Diana Stephenson, RDFILOMENA, RVT
--- NOTE | 2022-08-01 10:00 | NURSING ---
Per conversation w/ Dr. Bruce. Ok to continue to run Heparin at 7.1ml/hr, which was rate pt transferred on from previous hospital.
[2022-08-01 10:09] VITALS: BMI 23.1
--- NOTE | 2022-08-01 10:11 | PCM.HP.STD ---
HPI - General General Date of Admission: 08/01/22 Date of Service: 08/01/22 HPI Narrative ASHANTI ESCALONA, is a 82 F with history of coronary artery disease, atrial fibrillation, history of ascending thoracic aortic aneurysm, CKD unclear subtype intake or tachycardia, cognitive impairment, anxiety who presented to [facility] 08/01 as a transfer from [place] where she presented with chest pain and was found to have NSTEMI with troponin of 31.5 which trended up to 40. She was started on heparin drip and transferred. Patient seen upon arrival to the floor and reported that chest pain started yesterday in the morning when she moved from a chair over to her table and had a intense pressure and shortness of breath that lasted briefly but concerned her to the point where she went to the emergency department. Denied any other complaints aside from possibly feeling she had some swollen glands but has no other symptoms of infection. She does have extensive cardiac history and was here in April for chest pain and had a cardiac cath that showed multivessel disease and she was referred [facility] as an [facility] for [facility]. She reports she had a phone consult with [facility] and they felt that this can be managed with stenting. She has an appointment with cardiology on the seventh of this month and was post undergo a left heart cath on the . [facility] Medical History (Updated 08/01/22 @ 10:[address] Yasmeen Bruce MD) Atherosclerosis of [place] coronary artery of [place] heart without angina pectoris Benign essential HTN CAD (coronary artery disease) Chest pain Fibromyalgia History of breast cancer History of coronary artery stent placement (03/04/21) History of left heart catheterization (LHC) Mixed hyperlipidemia Nonrheumatic aortic (valve) insufficiency Nonrheumatic mitral (valve) prolapse Obstructive sleep apnea Paroxysmal atrial fibrillation Paroxysmal supraventricular tachycardia by electrocardiogram (ECG) Peptic ulcer disease Premature ventricular contractions PSVT (paroxysmal supraventricular tachycardia) Thoracic aortic aneurysm without rupture Home Medications modafinil 100 mg tablet 100 mg PO DAILY PRN sleep apnea 09/01/13 [History Last Taken 09/06/14] montelukast 10 mg tablet 10 mg PO DINNER allergies 09/01/13 [History Last Taken 09/08/14] duloxetine 30 mg capsule,delayed release 30 mg PO DAILY depression/anxiety 09/09/14 [History Last Taken 05/09/22] denosumab 60 mg/mL subcutaneous syringe (Prolia) 60 mg subcut [id number] 05/15/19 [History Last Taken Unknown] memantine 10 mg tablet 10 mg PO BID dementia 07/10/20 [History Last Taken Unknown] Lactobacills gasseri-Bifidobac bifidum,longum 1.5 billion cell capsule ([employer]) 1 cap PO LUNCH gut health 01/23/22 [History Last Taken 05/09/22] ezetimibe 10 mg tablet (Zetia) 10 mg PO LUNCH cholesterol 01/23/22 [History Last Taken Unknown] prasugrel 10 mg tablet (Effient) 10 mg PO LUNCH blood thinner 05/10/22 [History Last Taken Unknown] aspirin 81 mg chewable tablet 81 mg PO BREAKFAST #0 tabs 05/11/22 [Rx Last Taken Unknown] apixaban 5 mg tablet (Eliquis) 5 mg PO BID blood thinner #180 tabs 05/25/22 [Rx Last Taken Unknown] isosorbide mononitrate 30 mg tablet,extended release 24 hr 60 mg PO DAILY #60 tabs 06/03/22 [Rx Last Taken Unknown] omeprazole magnesium 20 mg capsule,delayed release (Acid Veterinarian Helper (omeprazole)) 20 mg PO DAILY #30 caps 06/03/22 [Rx Last Taken Unknown] Allergy/AdvReac Type Severity Reaction Status Date / Time amitriptyline [From Elavil] Allergy Intermediate PT UNSURE Verified 06/03/22 14:18 OF REACTION donepezil [From Aricept] Allergy Intermediate PT UNSURE Verified 06/03/22 14:18 OF REACTION hydrocodone [From Vicoprofen] Allergy Intermediate PT UNSURE Verified 06/03/22 14:18 OF REACTION ibuprofen [From Vicoprofen] Allergy Intermediate PT UNSURE Verified 06/03/22 14:18 OF REACTION sertraline [From Zoloft] Allergy Intermediate PT UNSURE Verified 06/03/22 14:18 OF REACTION acetaminophen [From Tylenol] Allergy PT UNSURE Verified 06/03/22 14:18 OF REACTION adhesive tape Allergy PT UNSURE Verified 06/03/22 14:18 OF REACTION amoxicillin Allergy PT UNSURE Verified 06/03/22 14:18 OF REACTION celecoxib [From Celebrex] Allergy PT UNSURE Verified 06/03/22 14:18 OF REACTION cephalexin Allergy PT UNSURE Verified 06/03/22 14:18 OF REACTION ciprofloxacin [From Cipro] Allergy PT UNSURE Verified 06/03/22 14:18 OF REACTION cyclobenzaprine Allergy PT UNSURE Verified 06/03/22 14:18 [From Flexeril] OF REACTION dicyclomine Allergy PT UNSURE Verified 06/03/22 14:18 OF REACTION diltiazem [From Cardizem] Allergy PT UNSURE Verified 06/03/22 14:18 OF REACTION doxycycline [From Vibramycin] Allergy PT UNSURE Verified 06/03/22 14:18 OF REACTION erythromycin base Allergy PT UNSURE Verified 06/03/22 14:18 OF REACTION niacin Allergy NEEDS Verified 06/03/22 14:18 FOLLOW-UP nitrofurantoin Allergy PT UNSURE Verified 06/03/22 14:18 [From Macrobid] OF REACTION Penicillins Allergy PT UNSURE Verified 06/03/22 14:18 OF REACTION pravastatin Allergy PT UNSURE Verified 06/03/22 14:18 OF REACTION red dye Allergy PT UNSURE Verified 06/03/22 14:18 OF REACTION red yeast rice Allergy PT UNSURE Verified 06/03/22 14:18 OF REACTION Sulfa (Sulfonamide Allergy PT UNSURE Verified 06/03/22 14:18 Antibiotics) OF REACTION tamsulosin Allergy PT UNSURE Verified 06/03/22 14:18 OF REACTION topiramate [From Topamax] Allergy PT UNSURE Verified 06/03/22 14:18 OF REACTION tolterodine [From Detrol] AdvReac Severe PT UNSURE Verified 06/03/22 14:18 OF REACTION lisinopril AdvReac Intermediate PT UNSURE Verified 06/03/22 14:18 OF REACTION losartan AdvReac Intermediate Diarrhea Verified 06/03/22 14:18 gabapentin AdvReac Unknown PT UNSURE Verified 06/03/22 14:18 OF REACTION venlafaxine [From Effexor] AdvReac Unknown PT UNSURE Verified 06/03/22 14:18 OF REACTION clopidogrel [From Plavix] AdvReac PT UNSURE Verified 06/03/22 14:18 OF REACTION guaifenesin AdvReac PT UNSURE Verified 06/03/22 14:18 OF REACTION ondansetron AdvReac PT UNSURE Verified 06/03/22 14:18 OF REACTION phenylephrine AdvReac PT UNSURE Verified 06/03/22 14:18 OF REACTION amitex Allergy PT UNSURE Uncoded 06/03/22 14:18 OF REACTION Family History (Reviewed 06/03/22 @ 14:22 by Ernestine Roman TOBACCO CLOTH RECLAIMER, TOBACCO CLOTH RECLAIMER-C) Father CAD (coronary artery disease) <55 Brother CAD (coronary artery disease) <55 Sister Breast cancer Diabetes Son Hypertension Atrial fibrillation Cancer rectal Mother , Age 83 CHF (congestive heart failure) Surgical History (Updated 08/01/22 @ 10:[address] Yasmeen Bruce MD) History of appendectomy History of cataract surgery History of cholecystectomy History of left heart catheterization History of modified radical mastectomy of right breast (~04/1996) Presence of coronary angioplasty implant and graft (03/04/21) Social History (Reviewed 06/03/22 @ 14:22 by Ernestine Roman TOBACCO CLOTH RECLAIMER, TOBACCO CLOTH RECLAIMER-C) Smoking Status: Never smoker alcohol intake: never substance use type: does not use caffeine: No what type of physical activity do you participate in: none seatbelt use: always do you feel safe at home: Yes ROS ROS Narrative General: Denies fever or chills, denies weight change HENT: Denies headache, denies stuffy nose, denies sore throat, does she feel she might of had some swollen glands for a week in her neck EYES: Denies changes in vision Resp: Denies cough, denies shortness of breath at this time Cardiac: Denies chest pain at this time GI: Denies abdominal pain, denies changes in bowel, denies nausea, denies vomiting : Denies changes in urination Extremity: Denies swelling MSK: Denies weakness Neuro: Denies any numbness, denies tingling Heme: Denies any bleeding or bruising Skin: Denies rashes Psychiatric: No complaints voiced Results Lab / Micro Data Result Diagrams: 08/01/22 09:30 08/01/22 09:30 Labs: Laboratory Results - last 24 hr 08/01/22 09:30: WBC 3.8 L, RBC 3.89 L, Hgb 11.8 L, Hct 36.2 L, MCV 93.1, MCH 30.3, MCHC 32.6, RDW Std Deviation 50.9 H, RDW Coeff of [place] 14.8 H, Plt Count 121 L, MPV 9.5 08/01/22 09:30: Sodium 144, Potassium 3.9, Chloride 110 H, Carbon Dioxide 26.0, Anion Gap 8, BUN 22 H, Creatinine 1.23 H, Est GFR (MDRD) Af Amer 53 L, Est GFR (MDRD) Non-Af 44 L, BUN/Creatinine Ratio 17.9, Glucose 88, Calcium 8.4 L, Total Bilirubin 0.70, AST 21, ALT 18, Alkaline Phosphatase 52, Troponin I High Sens 35, Total Protein 6.3 L, Albumin 3.4, Globulin 2.9, Albumin/Globulin Ratio 1.2 Assessment & Plan Assessment/Plan (1) Acute non-ST elevation myocardial infarction (NSTEMI): (2) Presence of coronary angioplasty implant and graft: (3) Thoracic aortic aneurysm without rupture: (4) Paroxysmal atrial fibrillation: PLAN: Plan #NSTEMI Unclear type I or type II Had brief episode of chest pain yesterday morning that was pressure and had shortness of breath associated but resolved independently In ED out at [facility] facility she had low troponin that then went to 31.5 and subsequently 40. She was started on heparin drip and transferred to our facility, high-sensitivity troponin here is 35 We will order EKG and troponin Heparin drip continued Appears to have intolerance to statin, continue ezetimibe Lipid panel Echo Beta-andrae, aspirin Holding Eliquis at this time as she is on heparin drip Takes prasugrel home N.p.o. in the event intervention is needed though suspect with resolution of chest pain this would be nonemergent and likely on Wednesday but will defer to cardiology keep n.p.o. awaiting input #History of coronary artery disease status post stenting Coronary angioplasty with PTCA of LAD 07/2010, DEBO x3 to RCA 08/01/2013, and DEBO to mid RPDA on 03/04/2021 Has extensive history and had cardiac cath in April with multivessel disease and was referred outpatient to [facility] for CABG Reportedly had phone conference with them and they felt that it could be managed with stenting She is scheduled for cardiac cath on the of this month and follows with Dr. Malcolm Cardiology consulted Presently on heparin drip Aspirin and ezetimibe, appears to possibly have an intolerance to statins, will clarify Lipid panel #History of ascending thoracic aorta aneurysm CTA 05/11/2022 with aneurysm 4.3 x 4.4 cm Reportedly prior to transfer had a CTA which showed relatively unchanged aneurysm #CKD unclear subtype Creatinine reported from outlying facility was 1.62 however here today it is 1.23 which appears to be her baseline Monitor closely and consider hydration if going for cath #Paroxysmal atrial fibrillation Eliquis held due to being on heparin drip Beta-andrae ordered #DVT ppx: Presently on heparin drip Yasmeen Bruce MD Time spent in the patient's overall evaluation,decision-making process, review of diagnostic data, adjustment of management, discussion with other providers, nursing nursing and ancillary staff involved in patient's care documentation, 60 minutes Charges/Coding Visit Charges Inpatient E&M: 47806 Init Hosp L2
[2022-08-01 10:53] LABS: International Normalized Ratio 1.1; Prothrombin Time (Protime)PT. 13.5 SECONDS (11.7-14.9)
[2022-08-01] MEDS: HEPARIN/D5w 25,000 UNITS 25,000 UNITS/250 ML IV.SOLN. 8 UNITS CONT INF (11:15)
--- NOTE | 2022-08-01 12:41 | PCM.CONS.C ---
Assessment & Plan Assessment/Plan (1) Chest pain: PLAN: Patient's chest pain is atypical. Troponin is negative. Her angiogram was reviewed. I feel that she may be better off being treated medically for her underlying coronary artery disease. From a cardiac standpoint she can be discharged home and she can follow-up with us as an outpatient. HPI Consult Data Date of Consult: 08/01/22 HPI Narrative Reason for Consultation: Chest pain HPI Narrative: ASHANTI ESCALONA, is a 82 F who presents to [facility] with chest pain. Patient states that she had left sided chest pain earlier in the day yesterday and then on the right side of the some heaviness which she was not exactly sure if it was retrosternal but later said it was probably retrosternal. This lasted a few minutes and went away after she took nitroglycerin. She had coronary angiography in number and surgical consult was obtained apparently over the phone from [facility]. Apparently they recommended PCI. Patient's troponin has remained negative. She is currently chest pain-free. 2D echo revealed preserved EF. Patient's angiogram was reviewed. [facility] Medical History (Updated 08/01/22 @ 10:[address] Yasmeen Bruce MD) Atherosclerosis of [place] coronary artery of [place] heart without angina pectoris Benign essential HTN CAD (coronary artery disease) Chest pain Fibromyalgia History of breast cancer History of coronary artery stent placement (03/04/21) History of left heart catheterization (LHC) Mixed hyperlipidemia Nonrheumatic aortic (valve) insufficiency Nonrheumatic mitral (valve) prolapse Obstructive sleep apnea Paroxysmal atrial fibrillation Paroxysmal supraventricular tachycardia by electrocardiogram (ECG) Peptic ulcer disease Premature ventricular contractions PSVT (paroxysmal supraventricular tachycardia) Thoracic aortic aneurysm without rupture Home Medications modafinil 100 mg tablet 100 mg PO DAILY PRN sleep apnea 09/01/13 [History Last Taken 09/06/14] montelukast 10 mg tablet 10 mg PO DINNER allergies 09/01/13 [History Last Taken 09/08/14] duloxetine 30 mg capsule,delayed release 30 mg PO DAILY depression/anxiety 09/09/14 [History Last Taken 05/09/22] denosumab 60 mg/mL subcutaneous syringe (Prolia) 60 mg subcut [id number] 05/15/19 [History Last Taken Unknown] memantine 10 mg tablet 10 mg PO BID dementia 07/10/20 [History Last Taken Unknown] Lactobacills gasseri-Bifidobac bifidum,longum 1.5 billion cell capsule ([employer]) 1 cap PO LUNCH gut health 01/23/22 [History Last Taken 05/09/22] ezetimibe 10 mg tablet (Zetia) 10 mg PO LUNCH cholesterol 01/23/22 [History Last Taken Unknown] prasugrel 10 mg tablet (Effient) 10 mg PO LUNCH blood thinner 05/10/22 [History Last Taken Unknown] aspirin 81 mg chewable tablet 81 mg PO BREAKFAST #0 tabs 05/11/22 [Rx Last Taken Unknown] apixaban 5 mg tablet (Eliquis) 5 mg PO BID blood thinner #180 tabs 05/25/22 [Rx Last Taken Unknown] isosorbide mononitrate 30 mg tablet,extended release 24 hr 60 mg PO DAILY #60 tabs 06/03/22 [Rx Last Taken Unknown] omeprazole magnesium 20 mg capsule,delayed release (Acid Patent Agent (omeprazole)) 20 mg PO DAILY #30 caps 06/03/22 [Rx Last Taken Unknown] Allergy/AdvReac Type Severity Reaction Status Date / Time amitriptyline [From Elavil] Allergy Intermediate PT UNSURE Verified 06/03/22 14:18 OF REACTION donepezil [From Aricept] Allergy Intermediate PT UNSURE Verified 06/03/22 14:18 OF REACTION hydrocodone [From Vicoprofen] Allergy Intermediate PT UNSURE Verified 06/03/22 14:18 OF REACTION ibuprofen [From Vicoprofen] Allergy Intermediate PT UNSURE Verified 06/03/22 14:18 OF REACTION sertraline [From Zoloft] Allergy Intermediate PT UNSURE Verified 06/03/22 14:18 OF REACTION acetaminophen [From Tylenol] Allergy PT UNSURE Verified 06/03/22 14:18 OF REACTION adhesive tape Allergy PT UNSURE Verified 06/03/22 14:18 OF REACTION amoxicillin Allergy PT UNSURE Verified 06/03/22 14:18 OF REACTION celecoxib [From Celebrex] Allergy PT UNSURE Verified 06/03/22 14:18 OF REACTION cephalexin Allergy PT UNSURE Verified 06/03/22 14:18 OF REACTION ciprofloxacin [From Cipro] Allergy PT UNSURE Verified 06/03/22 14:18 OF REACTION cyclobenzaprine Allergy PT UNSURE Verified 06/03/22 14:18 [From Flexeril] OF REACTION dicyclomine Allergy PT UNSURE Verified 06/03/22 14:18 OF REACTION diltiazem [From Cardizem] Allergy PT UNSURE Verified 06/03/22 14:18 OF REACTION doxycycline [From Vibramycin] Allergy PT UNSURE Verified 06/03/22 14:18 OF REACTION erythromycin base Allergy PT UNSURE Verified 06/03/22 14:18 OF REACTION niacin Allergy NEEDS Verified 06/03/22 14:18 FOLLOW-UP nitrofurantoin Allergy PT UNSURE Verified 06/03/22 14:18 [From Macrobid] OF REACTION Penicillins Allergy PT UNSURE Verified 06/03/22 14:18 OF REACTION pravastatin Allergy PT UNSURE Verified 06/03/22 14:18 OF REACTION red dye Allergy PT UNSURE Verified 06/03/22 14:18 OF REACTION red yeast rice Allergy PT UNSURE Verified 06/03/22 14:18 OF REACTION Sulfa (Sulfonamide Allergy PT UNSURE Verified 06/03/22 14:18 Antibiotics) OF REACTION tamsulosin Allergy PT UNSURE Verified 06/03/22 14:18 OF REACTION topiramate [From Topamax] Allergy PT UNSURE Verified 06/03/22 14:18 OF REACTION tolterodine [From Detrol] AdvReac Severe PT UNSURE Verified 06/03/22 14:18 OF REACTION lisinopril AdvReac Intermediate PT UNSURE Verified 06/03/22 14:18 OF REACTION losartan AdvReac Intermediate Diarrhea Verified 06/03/22 14:18 gabapentin AdvReac Unknown PT UNSURE Verified 06/03/22 14:18 OF REACTION venlafaxine [From Effexor] AdvReac Unknown PT UNSURE Verified 06/03/22 14:18 OF REACTION clopidogrel [From Plavix] AdvReac PT UNSURE Verified 06/03/22 14:18 OF REACTION guaifenesin AdvReac PT UNSURE Verified 06/03/22 14:18 OF REACTION ondansetron AdvReac PT UNSURE Verified 06/03/22 14:18 OF REACTION phenylephrine AdvReac PT UNSURE Verified 06/03/22 14:18 OF REACTION amitex Allergy PT UNSURE Uncoded 06/03/22 14:18 OF REACTION Family History (Reviewed 06/03/22 @ 14:22 by Ernestine Roman THERMAL SURFACING MACHINE OPERATOR, THERMAL SURFACING MACHINE OPERATOR-C) Father CAD (coronary artery disease) <55 Brother CAD (coronary artery disease) <55 Sister Breast cancer Diabetes Son Hypertension Atrial fibrillation Cancer rectal Mother , Age 83 CHF (congestive heart failure) Surgical History (Updated 08/01/22 @ 10:[address] Yasmeen Bruce MD) History of appendectomy History of cataract surgery History of cholecystectomy History of left heart catheterization History of modified radical mastectomy of right breast (~04/1996) Presence of coronary angioplasty implant and graft (03/04/21) Social History (Reviewed 06/03/22 @ 14:22 by Ernestine Roman THERMAL SURFACING MACHINE OPERATOR, THERMAL SURFACING MACHINE OPERATOR-C) Smoking Status: Never smoker alcohol intake: never substance use type: does not use caffeine: No what type of physical activity do you participate in: none seatbelt use: always do you feel safe at home: Yes Physical Exam Const alert HEENT normocephalic Eyes no scleral icterus Resp normal respiratory effort Cardio regular rate and regular rhythm Skin no rashes or lesions noted Risk Stratification Risk Stratification Applicable: No Charges/Coding Visit Charges Inpatient E&M: 32761 Subs Hosp L2 Objective Data Vital Signs: Vital Signs O2 Del Method Room Air 08/01/22 08:50 Oxygen Delivery Method Room Air Weight: 138 lb 10.732 oz Body Mass Index (BMI) 23.1 Lab / Micro Data Result Diagrams: 08/01/22 09:30 08/01/22 09:30 Labs: Laboratory Results - last 24 hr 08/01/22 09:30: WBC 3.8 L, RBC 3.89 L, Hgb 11.8 L, Hct 36.2 L, MCV 93.1, MCH 30.3, MCHC 32.6, RDW Std Deviation 50.9 H, RDW Coeff of [place] 14.8 H, Plt Count 121 L, MPV 9.5 08/01/22 09:30: Sodium 144, Potassium 3.9, Chloride 110 H, Carbon Dioxide 26.0, Anion Gap 8, BUN 22 H, Creatinine 1.23 H, Est GFR (MDRD) Af Amer 53 L, Est GFR (MDRD) Non-Af 44 L, BUN/Creatinine Ratio 17.9, Glucose 88, Calcium 8.4 L, Total Bilirubin 0.70, AST 21, ALT 18, Alkaline Phosphatase 52, Troponin I High Sens 35, Total Protein 6.3 L, Albumin 3.4, Globulin 2.9, Albumin/Globulin Ratio 1.2 08/01/22 10:37: PT 13.5, INR 1.1 Cardiology Labs/Tests 08/01/22 09:30: WBC 3.8 L, RBC 3.89 L, Hgb 11.8 L, Hct 36.2 L, MCV 93.1, MCH 30.3, MCHC 32.6, Plt Count 121 L, MPV 9.5 08/01/22 09:30: Sodium 144, Potassium 3.9, Chloride 110 H, Carbon Dioxide 26.0, Anion Gap 8, BUN 22 H, Creatinine 1.23 H, Est GFR (MDRD) Af Amer 53 L, Est GFR (MDRD) Non-Af 44 L, BUN/Creatinine Ratio 17.9, Glucose 88, Calcium 8.4 L, Total Bilirubin 0.70 08/01/22 10:37: PT 13.5, INR 1.1 Rhythm: EKG: ECHO: Stress Test: Cardiac Cath: PCI: CT Surgery: Holter monitor: EPS: PPM: CXR: Chest CT Scan: Radiography Diagnostic Testing: Radiology Impression Echocardiogram 08/01/22 09:59 Interpretation Summary The estimated ejection fraction is 65 %. Trivial mitral valve insufficiency. Mild (1+) aortic valve insufficiency. Ordering Physician: Yasmeen Bruce Referring Physician: Sabiha Monge Performed By: Diana Stephenson, PAUL, RVT
[2022-08-01 13:51] VITALS: O2SAT 95
[2022-08-01 14:50] VITALS: BP 110/62; PULSE 65; RESP 16; TEMP 36.9; O2SAT 95
--- NOTE | 2022-08-01 14:55 | DS.PCM_ITS ---
Providers Date of Admission: 08/01/22 Date of Discharge: 08/01/22 Primary Care Physician: Dr. Sabiha Monge MD Consultations 08/01/22 10:00 Consult: Cardiology Routine Consulting Provider: Aaron Monet Reason for Consult: Chest Pain, tx from [facility] for stemi on hep gtt EMERGENT Consult: No MD Notified: Yes Date Notified: 08/01/22 Time Notified: 10:00 Method of Notification: Text Reason For Visit: CHEST PAIN Diagnosis Discharge Diagnosis (1) Chest pain: Status: Acute Code(s): R07.9 - Chest pain, unspecified (2) Presence of coronary angioplasty implant and graft: Status: Acute Code(s): Z95.5 - Presence of coronary angioplasty implant and graft (3) Paroxysmal atrial fibrillation: Status: Acute Code(s): I48.0 - Paroxysmal atrial fibrillation (4) Thoracic aortic aneurysm without rupture: Status: Acute Code(s): I71.20 - Thoracic aortic aneurysm, without rupture, unspecified Plan #Atypical chest pain #History of coronary artery disease status post stenting #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 #Paroxysmal atrial fibrillation Medications at Discharge Home Medications modafinil 100 mg tablet 100 mg PO DAILY PRN sleep apnea 09/01/13 montelukast 10 mg tablet 10 mg PO DINNER allergies 09/01/13 duloxetine 30 mg capsule,delayed release 30 mg PO DAILY depression/anxiety 09/09/14 denosumab 60 mg/mL subcutaneous syringe (Prolia) 60 mg subcut [id number] bone health 05/15/19 memantine 10 mg tablet 10 mg PO BID dementia 07/10/20 Lactobacills gasseri-Bifidobac bifidum,longum 1.5 billion cell capsule (neoSaej) 1 cap PO LUNCH gut health 01/23/22 ezetimibe 10 mg tablet (Zetia) 10 mg PO LUNCH cholesterol 01/23/22 prasugrel 10 mg tablet (Effient) 10 mg PO LUNCH blood thinner 05/10/22 aspirin 81 mg chewable tablet 81 mg PO BREAKFAST #0 tabs 05/11/22 apixaban 5 mg tablet (Eliquis) 5 mg PO BID blood thinner #180 tabs 05/25/22 isosorbide mononitrate 30 mg tablet,extended release 24 hr 60 mg PO DAILY #60 tabs 06/03/22 omeprazole magnesium 20 mg capsule,delayed release (Acid Account Resolution Specialist (omeprazole)) 20 mg PO DAILY #30 caps 06/03/22 ferrous sulfate 325 mg (65 mg iron) tablet (FeroSul) 325 mg PO DAILY GERD 08/01/22 pantoprazole 40 mg tablet,delayed release 40 mg PO heart burn 08/01/22 Hospital Course Summary of Care Provided Minutes Spent on Discharge: 20 Hospital Course: Per HPI today: ASHANTI ESCALONA, is a 82 F with history of coronary artery disea se, atrial fibrillation, history of ascending thoracic aortic aneurysm, CKD unclear subtype intake or tachycardia, cognitive impairment, anxiety who presented to [facility] 08/01 as a transfer from [place] where she presented with chest pain and was found to have NSTEMI with troponin of 31.5 which trended up to 40.? She was started on heparin drip and transferred.? Patient seen upon arrival to the floor and reported that chest pain started yesterday in the morning when she moved from a chair over to her table and had a intense pressure and shortness of breath that lasted briefly but concerned her to the point where she went to the emergency department.? Denied any other complaints aside from possibly feeling she had some swollen glands but has no other symptoms of infection.? She does have extensive cardiac history and was here in April for chest pain and had a cardiac cath that showed multivessel disease and she was [facility].? She reports she had a phone consult with [facility] and they felt that this can be managed with stenting.? She has an appointment with cardiology on the of this month and was post undergo a left heart cath on the . Interim history: She is seen by cardiology in consultation, chest pain was atypical, troponin negative. Her angiogram was reviewed and cardiology felt that medical management for her underlying coronary artery disease would be appropriate and outpatient follow-up. Advised patient resume home medications and follow-up with cardiology, she already has an appointment on 08/04. She had no complaints at time of discharge. Physical Exam Narrative General: Alert, oriented, no apparent distress HEENT: Atraumatic, normocephalic Eyes: Anicteric, normal conjunctiva, extraocular movements grossly intact Neck: Supple Respiratory: Clear to auscultation bilaterally, normal respiratory effort Cardiovascular: Regular rate and rhythm GI: Soft, nontender, nondistended Extremities: No edema Musculoskeletal: Moving all extremities Neuro: No overt focal neurological deficits Skin: No rashes appreciated Psych: Cooperative Weight / BMI Weight Weight: 62.9 kg Body Mass Index (BMI) 23.1 ABG / Lab / Microbiology Data Result Diagrams: 08/01/22 09:30 08/01/22 09:30 Laboratory: Laboratory Results - last 24 hr 08/01/22 09:30: WBC 3.8 L, RBC 3.89 L, Hgb 11.8 L, Hct 36.2 L, MCV 93.1, MCH 30.3, MCHC 32.6, RDW Std Deviation 50.9 H, RDW Coeff of [place] 14.8 H, Plt Count 121 L, MPV 9.5 08/01/22 09:30: Sodium 144, Potassium 3.9, Chloride 110 H, Carbon Dioxide 26.0, Anion Gap 8, BUN 22 H, Creatinine 1.23 H, Est GFR (MDRD) Af Amer 53 L, Est GFR (MDRD) Non-Af 44 L, BUN/Creatinine Ratio 17.9, Glucose 88, Calcium 8.4 L, Total Bilirubin 0.70, AST 21, ALT 18, Alkaline Phosphatase 52, Troponin I High Sens 35 , Total Protein 6.3 L, Albumin 3.4, Globulin 2.9, Albumin/Globulin Ratio 1.2 08/01/22 10:37: PT 13.5, INR 1.1 Radiography Diagnostic Testing: Radiology Impression Echocardiogram 08/01/22 09:59 Interpretation Summary The estimated ejection fraction is 65 %. Trivial mitral valve insufficiency. Mild (1+) aortic valve insufficiency. Ordering Physician: Yasmeen Bruce Referring Physician: Sabiha Monge Performed By: Diana Stephenson, PAUL, RVT D/C Instructions Discharge Diet: - (DASH diet) Meaningful Use Info Meaningful Use Diagnoses (Choose all that apply): None applicable Discharge Plan Admission Admit Date/Time: 08/01/22 09:17 Primary Reason for Your Visit: Chest pain Attending Provider: Yasmeen Bruce Primary Care Provider: Sabiha Monge Consulting Providers: Aaron Monet Instructions Patient Instructions: DASH Plan Eat Heart Healthy Food, Eating Heart-Healthy Foods Additional Instructions / Restrictions: -Please continue your home medications and follow-up with your morning news anchor office on 08/04 as previously scheduled -Continue home medications -Please call your primary care provider's office upon discharge to schedule a hospital follow up within 1 week. -For any concerning signs or symptoms please call 911 or proceed to the nearest emergency department Discharge Orders/Prescriptions Prescriptions: Continued Prolia 60 mg/mL syringe 60 mg SC [id number] memantine 10 mg tablet 10 mg PO BID ezetimibe [Zetia] 10 mg tablet 10 mg PO LUNCH neoSaej 1.5 billion cell capsule 1 cap PO LUNCH omeprazole magnesium [Acid Account Resolution Specialist (omeprazole)] 20 mg capsule,delayed release(DR/EC) 20 mg PO DAILY Qty: 30 3RF isosorbide mononitrate 30 mg tablet extended release 24 hr 60 mg PO DAILY Qty: 60 3RF modafinil 100 MG tablet 100 mg PO DAILY PRN (Reason: sleep apnea) Label Comments: MENTAL HEALTH montelukast 10 MG tablet 10 mg PO DINNER Label Comments: allergies duloxetine 30 MG capsule 30 mg PO DAILY Label Comments: for fibromyalgia prasugrel [Effient] 10 mg tablet 10 mg PO LUNCH aspirin 81 mg Tablet,Chewable 81 mg PO BREAKFAST Qty: 0 0RF pantoprazole 40 mg tablet,delayed release (DR/EC) 40 mg PO ferrous sulfate [FeroSul] 325 mg (65 mg iron) Tablet 325 mg PO DAILY Eliquis 5 mg tablet 5 mg PO BID Qty: 180 3RF Referrals / Follow Up: Sabiha Monge MD [Primary Care Provider] - Within 1 Week Sudhir Stephenson NP, SECURITY INTERN-C [Med Staff - Adv Practice Prof] - 08/04/22 (Please follow up with your cardiology office as previously scheduled) Disposition Disposition (needs filled in before D/C Order can be placed): Home, Self Care Charges/Coding Visit Charges Inpatient E&M: 52034 Disch Hosp
--- NOTE | 2022-08-01 14:56 | DCINST_ITS ---
Discharge Instructions Diet Discharge Diet: - (DASH diet) Activity Discharge Activity: Return to Normal Activity Follow Up Care Test Results: Test results from this visit will be discussed in further detail at your follow- up appointment, if applicable. Discharge Plan Admission Admit Date/Time: 08/01/22 09:17 Primary Reason for Your Visit: Chest pain Attending Provider: Yasmeen Bruce Primary Care Provider: Sabiha Monge Consulting Providers: Aaron Monet Instructions Patient Instructions: DASH Plan Eat Heart Healthy Food, Eating Heart-Healthy Foods Additional Instructions / Restrictions: -Please continue your home medications and follow-up with your companion caregiver off ice on 08/04 as previously scheduled -Continue home medications -Please call your primary care provider's office upon discharge to schedule a hospital follow up within 1 week. -For any concerning signs or symptoms please call 911 or proceed to the nearest emergency department Discharge Orders/Prescriptions Prescriptions: Continued Prolia 60 mg/mL syringe 60 mg SC [id number] memantine 10 mg tablet 10 mg PO BID ezetimibe [Zetia] 10 mg tablet 10 mg PO LUNCH [employer] 1.5 billion cell capsule 1 cap PO LUNCH omeprazole magnesium [Acid Social Media Sr Strategy Manager (omeprazole)] 20 mg capsule,delayed release(DR/EC) 20 mg PO DAILY Qty: 30 3RF isosorbide mononitrate 30 mg tablet extended release 24 hr 60 mg PO DAILY Qty: 60 3RF modafinil 100 MG tablet 100 mg PO DAILY PRN (Reason: sleep apnea) Label Comments: MENTAL HEALTH montelukast 10 MG tablet 10 mg PO DINNER Label Comments: allergies duloxetine 30 MG capsule 30 mg PO DAILY Label Comments: for fibromyalgia prasugrel [Effient] 10 mg tablet 10 mg PO LUNCH aspirin 81 mg Tablet,Chewable 81 mg PO BREAKFAST Qty: 0 0RF pantoprazole 40 mg tablet,delayed release (DR/EC) 40 mg PO ferrous sulfate [FeroSul] 325 mg (65 mg iron) Tablet 325 mg PO DAILY Eliquis 5 mg tablet 5 mg PO BID Qty: 180 3RF Referrals / Follow Up: Sabiha Monge MD [Primary Care Provider] - Within 1 Week Sudhir Stephenson NP, SHOWER ROOM ATTENDANT-C [Med Staff - [facility] Practice Prof] - 08/04/22 (Please follow up with your cardiology office as previously scheduled) Disposition Disposition (needs filled in before D/C Order can be placed): Home, Self Care
--- NOTE | 2022-08-01 15:47 | CASEMGMT ---
Addendum entered and electronically signed by Stephy Cowan RN 08/01/22 15:54: DME: Pt does have a bipap machine at home from [employer]. F/U: Pt states she will be seeing MAGDA Hassan at the [facility] on Wednesday and has a heart cath scheduled for 08/14. Jordyn Cowan RN CM Original Note: DANNY ELIZALDE DC Planning Assessment: Face to Face with patient for initial transition planning/care coordination assessment.?Pt alert and oriented x3. DANNY ELIZALDE introduced self and role at [facility], pt voices understanding and is agreeable to participating in assessment.? Care providers, pharmacy,?and demographics verified. Admission dx: NSTEMI PCP: Dr. Monge Specialists: [facility], Dr. Gordon ([facility]) Insurance: [facility] Prescription Benefit:?yes LNOK: son-Sudhir Living Arrangements: Pt lives alone and reports to be independent with ADLS including self care and manager production. Pt states her son and DIL in live in a house trailer on her property. Transportation: No concerns, son able to assist with driving and is picking her up this afternoon. DME: Pt denies ? Plan: Pt plans to return home with the support of her son. Denies any needs or concerns at this time. Jordyn Cowan RN CM
[2022-08-01 16:41] LABS: Partial Thromboplast Time 121.1 Seconds (24.1-36.2)
== END 2022-08-01 17:26 | disposition home or self-care (01) | DRG 313 ==
PROVIDERS: Admitting Provider Internal Medicine; PCP Student in an Organized Health Care Education/Training Program; Visit Provider Internal Medicine
DX: R07.89 Other chest pain (principal); I71.20 Thoracic aortic aneurysm, without rupture, unspecified; I48.0 Paroxysmal atrial fibrillation; E78.2 Mixed hyperlipidemia; I25.10 Atherosclerotic heart disease of native coronary artery without angina pectoris; M79.7 Fibromyalgia; I12.9 Hypertensive chronic kidney disease with stage 1 through stage 4 chronic kidney disease, or unspecified chronic kidney disease; N18.9 Chronic kidney disease, unspecified; Z95.5 Presence of coronary angioplasty implant and graft; Z79.899 Other long term (current) drug therapy
CPT/HCPCS: 36415; 80053; 84484; 85027; 85610; 85730; 93005; 93306; 94668; 96374; 99221; Q9957; A4216; C8929; G0378

== ENCOUNTER 2022-08-14 07:57 | Day surgery (SDC) | payer MEDICARE, SELFPAY ==
[2022-08-13 09:14] VITALS: BMI 21.9
--- NOTE | 2022-08-14 11:54 | CL.D_ITS ---
Patient Name: ASHANTI ESCALONA Study Date: 08/14/2022 Performing: Caren Traylor MD Ht: 65 inches 165.1 cm : 1940 Wt: 131.99 lbs 59.87 kg Age: 82 Gender: female BSA: 1.66 PROCEDURE(S) PERFORMED DC02-([id number])LHC/COR IC10-([id number])FFR, CORONARY OR GRAFT, INITIAL VESSEL CLINICAL PROFILE AND INDICATIONS Indications: Stable Known CAD Heart Failure: None CAD Presentations: Symptom unlikely to be ischemic. CONCLUSIONS 65% distal Mid LAD. Non-sognificant iFR (0.93) 70-80% distal (apical) LAD, small 1.5 mm vessel RECOMMENDATIONS Medical therapy DESCRIPTION OF PROCEDURE The patient arrived to the procedure lab. The risks and benefits of the procedure as well as a full description of our services here and current unavailability of surgical backup were fully explained to the patient and/or their significant other prior to the catheterization. The Timeout was completed, verifying the correct patient and procedure. The patient's procedural site was prepped and draped in the usual fashion. Local anesthetic was given subcutaneously to right radial region with Lidocaine 2%. Using a modified Seldinger technique, arterial access was obtained via the right radial artery, a 6Fr sheath was inserted. .The arterial sheath was pulled and a TR Band was applied for hemostasis - 10CC AIR CORONARY ANGIOGRAPHY LEFT ANTERIOR DESCENDING ARTERY: MID LAD: 60%. iFR 0.93 COMPLICATIONS No Complications PROCEDURE MEDICATIONS Fentanyl 50 mcg IV Versed 1 mg IV Oxygen: 2 L/min via nasal cannula Heparin given IA 08/14/2022 10:59:10 Heparin 3000 unit(s) IV 08/14/2022 11:00:36 Verapamil 2.5mg, Ntg 200mcgs, 2000 units of Heparin given IA 08/14/2022 10:59:10 SUMMARY OF HEMODYNAMIC DATA Time AIR REST ECG 08:26:31 AO 117/53 (76) SA 11:06:55 Signed By Caren Traylor MD On 08/14/2022 11:53:39 Caren Traylor MD
== END 2022-08-14 15:05 | disposition home or self-care (01) ==
PROVIDERS: PCP Student in an Organized Health Care Education/Training Program; Referring Provider Internal Medicine Cardiovascular Disease; Visit Provider Internal Medicine Cardiovascular Disease
DX: R07.89 Other chest pain (principal); I71.20 Thoracic aortic aneurysm, without rupture, unspecified; I48.0 Paroxysmal atrial fibrillation; I25.10 Atherosclerotic heart disease of native coronary artery without angina pectoris; Z95.5 Presence of coronary angioplasty implant and graft; G47.33 Obstructive sleep apnea (adult) (pediatric); I10 Essential (primary) hypertension; Z82.49 Family history of ischemic heart disease and other diseases of the circulatory system; I49.3 Ventricular premature depolarization; I34.1 Nonrheumatic mitral (valve) prolapse; E78.2 Mixed hyperlipidemia
CPT/HCPCS: 93454; 93571; 99152; 99153; J7040; Q9967; C1769; C1887; C1894

== ENCOUNTER → 2022-12-11 | Outpatient (CLI) | payer MEDICARE, SELFPAY ==
--- NOTE | 2022-12-11 13:44 | CDU_ITS ---
Reason For Study: Lightheadedness Rt. Velocities/BP Lt. Velocities/BP Prox CCA 85/10.2 cm/sec. Prox CCA 72.9/13.5 cm/sec. Mid CCA 61.9/11.3 cm/sec. Mid CCA 66.3/13.5 cm/sec. Dist CCA 52/15.7 cm/sec. Dist CCA 56.4/11.3 cm/sec. Prox ICA 48.7/14.6 cm/sec. Prox ICA 75.3/15.1 cm/sec. Mid ICA 70.7/15.7 cm/sec. Mid ICA 70.2/17.3 cm/sec. Dist ICA 52/16.8 cm/sec. Dist ICA 64.5/19.8 cm/sec. Rt. ICA/CCA = 1.14. Lt. ICA/CCA = 1.14. Prox ECA 69.6/4.7 cm/sec. Prox ECA 97.1/4.7 cm/sec. Rt. Vert. 41/10.2 cm/sec. Lt. Vert. 35.5/11.3 cm/sec. Right Extracranial There is homogeneous, smooth atherosclerotic plaque noted in the right common carotid artery. There is heterogeneous, irregular atherosclerotic plaque noted in the right internal carotid artery. There is intimal thickening but no significant atherosclerotic plaque noted in the right external carotid artery. Antegrade flow is noted in the right vertebral artery. Left Extracranial There is homogeneous, smooth atherosclerotic plaque noted in the left common carotid artery. There is heterogeneous, irregular atherosclerotic plaque noted in the left internal carotid artery. There is homogeneous, smooth atherosclerotic plaque noted in the left external carotid artery. Antegrade flow is noted in the left vertebral artery. There is heterogeneous, irregular atherosclerotic plaque noted in the left bulb. Procedure Carotid Duplex 54921. This is a Carotid Duplex examination using B-mode, color flow and specral Doppler. Exam performed in department. VL/Carotid Duplex Ultrasound Interpretation Summary Mild (<50%) stenosis right extracranial internal carotid. Mild (<50%) stenosis left extracranial internal carotid. Patent and antegrade vertebrals bilaterally. Ordering Physician: Sudhir Stephenson Referring Physician: Sabiha Monge Performed By: Kisha Wade RVT
== END | disposition home or self-care (01) ==
LOC: CVS 13:43
PROVIDERS: PCP Student in an Organized Health Care Education/Training Program; Referring Provider Nurse Practitioner Family; Visit Provider Nurse Practitioner Family
DX: I65.22 Occlusion and stenosis of left carotid artery (principal); R42 Dizziness and giddiness; Z95.5 Presence of coronary angioplasty implant and graft
CPT/HCPCS: 93880

== ENCOUNTER → 2023-02-10 | Outpatient (CLI) | payer MEDICARE, SELFPAY ==
--- NOTE | 2023-02-10 13:03 | CT_ITS ---
STUDY: CTA CHEST REASON FOR EXAM: Female, 83 years old. Eval of aortic aneurysm. History of breast cancer and mastectomy. RADIATION DOSAGE (If Supplied By Facility): CTDIvol = ( 4.31 ) mGy, DLP = ( 139.26 ) mGycm TECHNIQUE: The examination was performed with the intravenous administration of IV 100mL Isovue-370. Post-processing of the angiographic images was performed, with multiplanar reformation and 3D reconstruction. Individualized dose optimization techniques were used for this CT. COMPARISON: Comparison is made with prior study May 11, 2022. FINDINGS: The patient is status post right mastectomy with right breast prosthesis. Normal enhancement of the main pulmonary artery and right and left pulmonary arteries. Normal enhancement of the bilateral peripheral pulmonary arteries. There is no demonstrated pulmonary embolism. There is aneurysmal dilatation of the ascending aorta. The transverse diameter of the ascending aorta measures 43.7 mm''s. This is essentially unchanged. There is no demonstrated aortic dissection. There are calcifications of the coronary arteries. Normal mediastinum. Normal hilar regions. Normal visualized trachea and bronchi. The lungs are well expanded. Scattered calcified granulomas. The largest is in the anterior lateral aspect of the left upper lobe. Stable mild scarring at the lung bases. Normal pleura. Normal chest wall structures. There are degenerative changes of thoracic spine. Calcified splenic granulomas. CT/CTA Chest W/WO Contrast IMPRESSION: Stable examination. Electronically Signed: Dat Perez MD at 15:29 EDT ,
[2023-02-10 13:42] LABS: CREATININE FINGERSTICK 1.3 mg/dL (0.55-1.02)
== END | disposition home or self-care (01) ==
LOC: CT 13:02
PROVIDERS: PCP Student in an Organized Health Care Education/Training Program; Referring Provider Internal Medicine Cardiovascular Disease; Visit Provider Internal Medicine Cardiovascular Disease
DX: I71.20 Thoracic aortic aneurysm, without rupture, unspecified (principal); I48.0 Paroxysmal atrial fibrillation; R42 Dizziness and giddiness; I34.1 Nonrheumatic mitral (valve) prolapse; R07.89 Other chest pain
CPT/HCPCS: 71275; Q9967

== ENCOUNTER → 2023-10-28 | Outpatient (CLI) | payer MEDICARE, SELFPAY | END | disposition home or self-care (01) | LOC: LAB 11:34 | PROVIDERS: PCP Student in an Organized Health Care Education/Training Program; Referring Provider Urology; Visit Provider Urology | DX: N30.01 Acute cystitis with hematuria (principal) | CPT/HCPCS: 87086; 87088; 87186 ==

== ENCOUNTER → 2023-11-29 | Outpatient (CLI) | payer MEDICARE, SELFPAY | END | disposition home or self-care (01) | LOC: LABSPEC 15:41 | PROVIDERS: PCP Student in an Organized Health Care Education/Training Program; Referring Provider Nurse Practitioner; Visit Provider Nurse Practitioner | DX: R30.0 Dysuria (principal) | CPT/HCPCS: 87086; 87088; 87186 ==

== ENCOUNTER → 2024-02-03 | Outpatient (CLI) | payer MEDICARE, SELFPAY ==
--- NOTE | 2024-02-03 13:45 | CT_ITS ---
STUDY: CT ABDOMEN AND PELVIS WITH AND WITHOUT CONTRAST REASON FOR EXAM: Female, 84 years old. ACUTE CYSITIS WITH HEMATURIA RADIATION DOSAGE (If Supplied By Facility): CTDIvol = ( 14.19 ) mGy, DLP = ( 1340.49 ) mGycm TECHNIQUE: Transaxial images were obtained from the dome of the diaphragm to the symphysis pubis without oral contrast. 100 CC ISOVUE 300 was administered. Sagittal and coronal images were reconstructed. Individualized dose optimization techniques were used for this CT. COMPARISON: None. FINDINGS: The visualized lung bases are unremarkable. The visualized portions of the heart are within normal limits. Normal liver. There is non-visualization of the gallbladder, which may be secondary to either contraction or a prior cholecystectomy. Innumerable small subcentimeter lesions throughout the spleen with normal splenic size. Possibilities include small splenic cysts, metastatic disease, or lymphoma. Normal pancreas. Normal bilateral adrenal glands. Small bilateral renal cysts. Cortical scarring of both kidneys likely from prior infection. Mild gastric distention. Normal small intestine. Normal colon. There is non-visualization of the appendix. Normal abdominal aorta. Normal inferior vena cava. Multiple small retroperitoneal lymph nodes don''t but no pathologically enlarged lymphadenopathy. Normal urinary bladder. Normal abdominal wall. Mild dextroscoliosis lumbar spine with degenerative disc disease. CT/CT Abd/Pelvis W/WO Contrast IMPRESSION: No CT evident etiology of hematuria. Innumerable small splenic lesions which may be solid or cystic. Correlation with splenic ultrasound may be useful. Small retroperitoneal lymph nodes. Mild gastric distention. Electronically Signed: Venkat Chaney MD at 21:36 EDT ,
[2024-02-03 14:20] LABS: CREATININE FINGERSTICK 1.2 mg/dL (0.55-1.02)
== END | disposition home or self-care (01) ==
LOC: CT 13:44
PROVIDERS: PCP Student in an Organized Health Care Education/Training Program; Referring Provider Nurse Practitioner; Visit Provider Nurse Practitioner
DX: N30.01 Acute cystitis with hematuria (principal); R30.0 Dysuria
CPT/HCPCS: 74178; Q9967

== ENCOUNTER → 2025-03-08 | Outpatient (CLI) | payer MEDICARE, SELFPAY | END | disposition home or self-care (01) | LOC: LABSPEC 15:36 | PROVIDERS: PCP Student in an Organized Health Care Education/Training Program; Referring Provider Urology; Visit Provider Urology | DX: N30.00 Acute cystitis without hematuria (principal) | CPT/HCPCS: 87077; 87086; 87088; 87186 ==